=== PATIENT | male | born 1985 | race African-American/Black ===

== ENCOUNTER 2016-09-10 18:29 | Emergency (ER) | payer OTHER ==
[~2016-09-10] VITALS: Ht 177.8 cm; Wt 133.0 kg
[~2016-09-10 18:29] MED LIST: DIAZ-165 PO; IBUP600T44 PO; INSDGI SQ; NVLG SQ; OXYC-57 PO
[2016-09-10 18:38] VITALS: BP 188/112; TEMP 37.1; Ht 177.8 cm; Wt 133.0 kg
--- NOTE | 2016-09-10 19:19 | DIAGNOSTIC IMAGING REPORT ---
RIGHT KNEE 3 VIEWS CLINICAL HISTORY: right knee injury Right trauma. Pain. COMPARISON: None. DISCUSSION: Mild degenerative change all major joint compartments. No evidence for fracture or dislocation. No joint effusion. There is no evidence for soft tissue swelling. IMPRESSION: Mild degenerative change. No acute bony abnormality. Electronically signed by: Alistair Solis M.D. 09/10/2016 7:17 PM Dictated Date/Time: 09/10/2016 7:17 PM
--- NOTE | 2016-09-10 19:41 | EMERGENCY ROOM VISIT NOTE ---
ED Visit Note First contact with patient: 18:43 CHIEF COMPLAINT: knee pain HISTORY OF PRESENT ILLNESS: This 31-year-old male patient presents to the emergency department ambulatory complaining of pain in the right knee. The patient reports that he has had knee problems for several months. He states that his knee jaleel occasionally. He works as a general ledger bookkeeper and states that he has pain in the knee after standing for long period. He reports that yesterday, the knee locked and his leg twisted. He reports that his roommate heard a pop in the knee when it occurred. The pain is worse with movement of the knee. He rates the discomfort an 8/10. No numbness or tingling. No previous injuries to this knee. No ankle, foot or hip pain. The patient states that he was supposed to see orthopedics, but they have canceled the appointment twice. REVIEW OF SYSTEMS: A 6 system review of systems was completed with positives and pertinent negatives listed in the HPI. ALLERGIES: No known drug allergies MEDICATIONS: NovoLog, Lantus PMH: Diabetes SOCIAL HISTORY: The patient lives locally with a roommate. He is a smoker. He admits to occasional alcohol use. PHYSICAL EXAM: Vital Signs: Reviewed Nurse's notes, vital signs stable. GENERAL : This is a 31-year-old male, no acute distress, but appears in pain, well- developed, well-nourished. MENTAL STATUS: Alert, oriented to person place and time, and cooperative. MUSCULOSKELETAL: The right knee is not swollen. There is no ecchymosis. There is no joint effusion present. The patient is tender of a lateral aspect of the knee. The patella does not subluxate. Range of motion is , but painful. Strength of the quads and hamstrings is 5/5. Benjamin's is negative. Janny's and Anterior Drawer tests are negative. There is no laxity with varus and valgus stressing. The foot and toes are warm and well-perfused. Dorsalis pedis pulse 2+. Sensation to pain and light touch is intact. Capillary refill less than 2 seconds. RADIOGRAPHIC FINDINGS: RIGHT KNEE 3 VIEWS CLINICAL HISTORY: right knee injury Right trauma. Pain. COMPARISON: None. DISCUSSION: Mild degenerative change all major joint compartments. No evidence for fracture or dislocation. No joint effusion. There is no evidence for soft tissue swelling. IMPRESSION: Mild degenerative change. No acute bony abnormality. EMERGENCY DEPARTMENT COURSE: I examined the patient. X-rays of the right knee were reviewed by myself and read by radiology and reveal no acute findings. The patient has had an MRI previously. He will need to follow-up with orthopedics for further evaluation of his chronic knee pain. Conservative measures were discussed. He was placed in an Steven wrap. The patient was discharged home in good condition. DIAGNOSIS: Right knee pain Problem List Medical Problems: (1) DM type 2 (diabetes mellitus, type 2) Status: Chronic (2) Right knee injury Status: Resolved Surgical Problems: (1) No significant past surgical history Status: Chronic Current/Historical Medications Scheduled Insulin Aspart (Novolog), 20 UNITS SQ AC Insulin Glargine (Lantus), 70 UNITS SQ DAILY Scheduled PRN Ibuprofen (Motrin), 600 MG PO TID PRN for Pain Allergies Coded Allergies: No Known Allergies (Unverified , 09/10/16) Vital Signs Date Time Temp Pulse Resp B/P Pulse Ox O2 Delivery O2 Flow Rate FiO2 09/10/16 18:38 37.1 102 20 188/112 94 Room Air Departure Information Impression Primary Impression: Knee pain Dispostion Home / Self-Care Condition GOOD Referrals Olegario Prieto MD (PCP) Slim Finley M.D. Patient Instructions My [facility] Additional Instructions You have been treated in the Emergency Department for Knee Pain. For pain control, you can use the following [id number] medicines (if >12 yo): - Regular strength (325mg/tab) Tylenol (acetaminophen) 2 tabs every 4-6 hours as needed. Do not exceed 12 tablets in a 24 hour period. Avoid taking more than 4 grams (4000 mg) of Tylenol per day. This includes any other sources of acetaminophen you may take on a regular basis. - Regular strength (200 mg/tab) Advil (ibuprofen) 1-2 tabs every 4-6 hours as needed. Do not exceed a dose of 3200 mg per day. If this is a recent injury (<24 hrs), ice can be applied to the area of pain for the first 3 days to help decrease pain and inflammation. Ice massages can be performed by freezing water in a paper cup, peeling back the cup to expose the ice and then massaging over the affected area. You have been provided the number for an Orthopaedic Surgeon. You should call this number as soon as possible to establish a follow-up visit from today's Emergency Department visit. [facility] has a walk-in clinic Wednesday through Wednesday from 5 PM to 8 PM. Return to the Emergency Department if your current symptoms worsen despite treatment course outlined above. Problem Qualifiers Primary Impression: Knee pain Laterality: right Chronicity: unspecified Qualified Codes: M25.561 - Pain in right knee
[2016-09-10 19:54] VITALS: PULSE 78; O2SAT 98
[2016-11-12] MEDS ORDERED: ATOR10TA88 PO (16:31)
== END 2016-09-10 19:53 | disposition home or self-care (01) ==
LOC: C.EDB 18:31 → C.EDD 19:53
DX: M25.561 Pain in right knee (principal); E11.9 Type 2 diabetes mellitus without complications; Z79.4 Long term (current) use of insulin; F17.210 Nicotine dependence, cigarettes, uncomplicated

== ENCOUNTER 2016-09-23 13:34 | Observation (INO) | payer OTHER ==
[2016-09-18 15:34] VITALS: BMI 50.0
[2016-09-21 15:55] LABS: BUN/CREATININE RATIO 14.5 (10-20); CALCIUM 9.3 mg/dl (8.5-10.1); CREATININE 0.73 mg/dl (0.60-1.40)
--- NOTE | 2016-09-22 10:35 | HISTORY & PHYSICAL EXAMINATION ---
DATE OF ADMISSION: 09/23/2016 HISTORY OF PRESENT ILLNESS: The patient is a 31-year-old white male who presents with complaints of right knee pain with a lateral meniscal tear and chondromalacia patella. He presents for knee arthroscopy, partial lateral meniscectomy versus meniscal repair pending findings at time of surgery. He has failed attempts at conservative management including physical therapy, anti-inflammatories, relative rest, activity modifications and bracing. He presents for knee arthroscopy, partial lateral meniscectomy versus meniscal repair. He is a 70 inch, 350 pound white male, age 31. PAST MEDICAL HISTORY: Significant for sleep apnea, hypertension, diabetes, currently treated with insulin, osteoarthritis, reflux disease and obesity. SOCIAL HISTORY: Otherwise unremarkable. Denies history of alcohol, smoking or recreational drug use. FAMILY HISTORY: Otherwise unremarkable and noncontributory. PAST SURGICAL HISTORY: Unremarkable. ALLERGIES: None. MEDICATIONS: Include insulin, NovoLog 20 units 3-4 times a day, Lantus 70 units daily. Past medical history is otherwise unremarkable. See history of present illness for pertinent positives. PHYSICAL EXAMINATION: GENERAL: Reveals a very pleasant 31 year-old white male, 350 pounds. Alert and oriented x3. HEENT: Otherwise atraumatic, normocephalic. HEART: Regular rate at 72 beats per minute. No murmurs are noted. LUNGS: Clear. No rales, rhonchi, or wheezes noted. ABDOMEN: Soft, nontender, nondistended. Bowel sounds are present in all 4 quadrants. RECTAL: No rectal examination was performed. MUSCULOSKELETAL: Consistent with that of medial joint line pain and tenderness right knee with lateral joint line pain and tenderness right knee. Exam consistent with that of a torn lateral meniscus. PLAN: For arthroscopy, arthroscopic lateral meniscectomy, possible repair pending findings at time of surgery, postoperative pain management, DVT prophylaxis, antibiotics. BILLIE
[~2016-09-23] VITALS: Ht 177.8 cm; Wt 162.1 kg
[2016-09-23] VITALS (9 sets, daily range): BP systolic 140–181; BP diastolic 68–78; PULSE 84–102; TEMP 36.9–37.2; O2SAT 94–98; Ht 177.8 cm; Wt 162.1 kg
--- NOTE | 2016-09-23 11:58 | History & Physical Bridge Note ---
H&P Re-Evaluation Bridge Note: I have examined the patient, reviewed the History & Physical and in the interval since the performance of the History & Physical I have noted the following changes of clinical significance: No changes noted
[~2016-09-23 13:34] MED LIST changes: -DIAZ-165 PO; -IBUP600T44 PO; +LACTATED RINGER'S 1000ML 1,000 ML IV SCH; -OXYC-57 PO
[2016-09-23 14:01] LABS: HEMATOCRIT 42.7 % (42-52); MEAN CELL VOLUME 85.6 fL (80-100); MEAN CORPUSCULAR HEMOGLOBIN 29.1 pg (25-34); MEAN PLATELET VOLUME 10.7 fL (7.4-10.4); PLATELET COUNT 282 K/uL (130-400); RED BLOOD COUNT 4.99 M/uL (4.7-6.1); WHITE BLOOD COUNT 7.77 K/uL (4.8-10.8)
[2016-09-23] MEDS ORDERED: ONDANSETRON INJ 2 MG/ML 2 ML VIAL ONE (14:37)
[2016-09-23] MEDS ORDERED: DEXAMETHASONE SOD INJ 4 MG/ML VIAL ONE (14:37)
[2016-09-23] MEDS ORDERED: PROPOFOL IV EMULSION 10 MG/ML 20 ML VIAL IV ONE ×2 (14:37→15:43)
[2016-09-23] MEDS ORDERED: ROCURONIUM BROMIDE 10 MG/ML 5 ML VIAL ONE (14:37)
[2016-09-23] MEDS ORDERED: LIDOCAINE HCL 2% 2 ML VIAL (20MG/ML) ONE (14:37)
[2016-09-23] MEDS ORDERED: FENTANYL CITRATE INJ 50 MCG/1 ML 2 ML VIAL ONE ×3 (14:38→16:55)
[2016-09-23] MEDS ORDERED: MIDAZOLAM HCL 1 MG/ML 2ML VIAL ONE (14:38)
[2016-09-23] MEDS ORDERED: CEFAZOLIN 3000 MG/65 ML D5W IV SCH (15:00)
[2016-09-23] MEDS ORDERED: HYDR-5688 PO (15:17)
--- NOTE | 2016-09-23 15:18 | Discharge Instructions ---
Discharge Instructions Visit Reason for Visit: Right Knee Lateral Meniscus Tear, Chondromalacia P Discharge Discharge Diagnosis / Problem: right knee arthroscopy, meniscus tear Discharge Goals Goal(s): Decrease discomfort, Improve function, Increase independence Activity Recommendations Activity Limitations: as noted below Weightbearing Status: Right weightbearing (as tolerated) Anesthesia . Post Anesthesia Instructions: If you have had General Anesthesia or IV Sedation: * Do not drive today. * Resume driving when surgeon permits. * Do not make important decisions or sign legal documents today. * Call surgeon for: 1. Temperature elevations greater than 101 degrees F. 2. Uncontrollable pain. 3. Excessive bleeding. 4. Persistent nausea and vomiting. 5. Medication intolerance (nausea, vomiting or rash). * For nausea and vomiting use only clear liquids such as: tea, soda, bouillon until nausea subsides, then gradually increase diet as tolerated. * If you have any concerns or questions, call your surgeon's office. If physician is unavailable and it is an emergency, call 911 or go to the nearest emergency room. . Instructions / Follow-Up Instructions / Follow-Up ACTIVITY RECOMMENDATIONS: * You may walk on the leg with or without crutches as comfort permits. * Bending of the knee should start at once. * Do not shower for 48 hours following surgery. SPECIAL CARE INSTRUCTIONS: * You may cleanse the skin adjacent to the small wounds with soap and water at the time of the first dressing change. * The application of an ice bag to the front and sides of the knee will decrease swelling and discomfort for the first 48 hours. * The small incisions may be sore and develop bruising. This bruising does not require any special care. SPECIAL PRECAUTIONS: * If you experience unusual pain unrelieved by prescriptions, temperature elevation (100 degrees F. or above) or progressive swelling or bleeding, you should contact our office at for further evaluation. * You may have been prescribed pain medication. If you experience nausea and/or fine skin rash, discontinue this medication and contact our office at for an alternate medication. DRESSING: * Dressing should be comfortable and absorb any leakage of fluid and/or blood. * The dressing may become moist or bloodstained. * Dressing may be removed _48 hours_ after surgery and bandaids placed over the small surgical incisions. If can be removed sooner if it becomes very soiled or loose. * Bandaids may be used over next several days as needed and can be discontinued when there is not further drainage from the wounds. FOLLOW UP VISIT: If appointment is not already scheduled: Please call [facility] to make a follow-up appointment for your surgery at . Pending Studies Studies pending at discharge: no Medical Emergencies . Who to Call and When: Medical Emergencies: If at any time you feel your situation is an emergency, please call 911 immediately. . Non-Emergent Contact Non-Emergency issues call your: Primary Care Provider, Surgeon . . "Provider Documentation" section prepared by Alistair Joel. [place] Drug Monitoring Program Search Results: patient reviewed within database, no issues identified
[2016-09-23] MEDS ORDERED: BUPIVACAINE/EPINEPHRINE 0.5% MPF 1:200,000 30 ML VIAL ONE (15:27)
--- NOTE | 2016-09-23 16:17 | [facility] Post Operative Brief Note ---
Immediate Operative Summary Operative Date Sep 23, 2016. Pre-Operative Diagnosis Right lateral meniscal tear and chondromalacia patella Post-Operative Diagnosis Same Procedure(s) Performed Right Knee Arthroscopic Partial Lateral Menisectomy Surgeon Dr Salas Estimated Blood Loss 3ml Findings tlm rt knee Specimens A. Right lateral meniscus Complication(s) None Disposition Recovery Room / PACU
--- NOTE | 2016-09-23 16:34 | OPERATIVE REPORT ---
DATE OF OPERATION: 09/23/2016 PREOPERATIVE DIAGNOSIS: Torn lateral meniscus, right knee. POSTOPERATIVE DIAGNOSIS: Torn lateral meniscus, right knee. PROCEDURE: Arthroscopy, partial lateral meniscectomy. SURGEON: Dr. Salas. ANESTHESIA: General. COMPLICATIONS: None. GROSS FINDINGS: The patient is a very pleasant 31-year-old black male who presents with complaints of ongoing pain about his right knee. He has a lateral meniscal tear via MRI scan and clinical examination and presents today for arthroscopic evaluation. At the time of surgery, the above findings were noted. There was no evidence of a complex tear of the posterior horn of the lateral meniscus. Subsequently, a partial posterior horn lateral meniscectomy was performed. PROCEDURE: After proper prepping and draping of the right lower extremity, arthroscopic examination involving medial and lateral parapatellar portals revealed there to be evidence of a torn lateral meniscus. The patient subsequently underwent arthroscopy and arthroscopic partial lateral meniscectomy. All particulate matter and debris was removed. The medial meniscus was visualized and probed and noted be intact. Lateral meniscus visualized and probed and noted to be intact, patellofemoral joint was otherwise pristine. Subsequently, having performed a thorough partial posterior and lateral meniscectomy all particulate matter and debris was removed. Skin portals were closed with 4-0 nylon. Sterile compression dressing was placed. The patient was taken to recovery room in stable condition. I attest to the content of the Intraoperative Record and any orders documented therein. Any exceptio ns are noted below.
[2016-09-23] MEDS ORDERED: ALBUTEROL HFA INHALER 8.5 GM INH ONE (16:57)
[2016-09-23] MEDS ORDERED: PROMETHAZINE HCL INJ 12.5 MG in SODIUM CHLORIDE 0.9% 50ML 50 ML IV PRN (17:00)
[2016-09-23] MEDS ORDERED: EpHEDrine SULFATE INJ 50 MG/ML AMP IV PRN (17:00)
[2016-09-23] MEDS: FENTANYL CITRATE INJ 50 MCG/1 ML 2 ML VIAL IV PRN ×4 (17:00→17:15)
[2016-09-23] MEDS ORDERED: ONDANSETRON INJ 2 MG/ML 2 ML VIAL IV PRN ×2 (17:00→19:30)
[2016-09-23] MEDS ORDERED: ATROPINE SULFATE 0.1 MG/ML 5ML SYR IV PRN (17:00)
--- NOTE | 2016-09-23 18:15 | Anesthesiology Progress Note ---
Anesthesia Post Op Note Date & Time Sep 23, 2016 at 18:13 Vital Signs Pain Intensity: 6 Vital Signs Past 12 Hours Date Time Temp Pulse Resp B/P Pulse Ox O2 Delivery O2 Flow Rate FiO2 09/23/16 17:36 92 22 94 09/23/16 17:36 92 22 09/23/16 17:35 116/69 09/23/16 17:31 84 18 95 09/23/16 17:31 86 18 09/23/16 17:30 137/82 09/23/16 17:26 88 20 09/23/16 17:26 88 20 93 09/23/16 17:25 138/81 09/23/16 17:21 86 13 96 09/23/16 17:21 87 13 09/23/16 17:20 140/78 09/23/16 17:16 88 21 93 09/23/16 17:16 87 21 09/23/16 17:15 136/78 09/23/16 17:11 86 18 09/23/16 17:11 86 18 94 09/23/16 17:10 136/74 09/23/16 17:06 89 24 09/23/16 17:06 89 24 92 09/23/16 17:05 122/74 09/23/16 17:01 88 19 09/23/16 17:01 88 19 92 09/23/16 17:00 145/84 09/23/16 16:56 88 18 09/23/16 16:56 89 18 96 09/23/16 16:55 145/78 09/23/16 16:54 93 95 45 09/23/16 16:51 89 18 96 09/23/16 16:51 89 18 09/23/16 16:50 143/87 09/23/16 16:46 94 24 98 09/23/16 16:46 93 24 09/23/16 16:45 170/88 09/23/16 16:44 163/88 09/23/16 16:41 36 96 16 163/88 98 CPAP 09/23/16 14:08 36.9 102 20 140/68 97 Room Air 09/23/16 13:54 36.9 102 20 140/68 97 Room Air Notes Mental Status: alert / awake / arousable, participated in evaluation Pt Amnestic to Procedure: Yes Nausea / Vomiting: adequately controlled Pain: adequately controlled Airway Patency, RR, SpO2: stable & adequate, see Notes BP & HR: stable & adequate Hydration State: stable & adequate Anesthetic Complications: no major complications apparent Patient very high risk for ROOPA although had yet to complete a formal sleep study. Noted in PACU desaturations into 80's despite being on low level BiPAP. [place] it was in his best interest to admit the patient overnight for close monitoring and will order CPAP for time tonight. Attending surgeon aware and agrees however preferred to have medicine admit and follow the patient. Otherwise he is doing well and without complaint.
[2016-09-23] MEDS ORDERED: GLUCAGON FOR INJ 1 MG VIAL SQ PRN (19:30)
[2016-09-23] MEDS ORDERED: GLUCOSE 40% GEL 15 GM TUBE PO PRN (19:30)
[2016-09-23] MEDS ORDERED: GLUCOSE 10 TABS/TUBE PO PRN (19:30)
[2016-09-23] MEDS ORDERED: POLYETHYLENE (MIRALAX) 17 GM PACK PO PRN (19:30)
[2016-09-23] MEDS ORDERED: DEXTROSE 50% 50 ML SYR IV PRN (19:30)
[2016-09-23] MEDS ORDERED: ALUMINUM/MAGNESIUM/SIMETH (MAALOX MAX) 30 ML UDC PO PRN (19:30)
[2016-09-23] MEDS ORDERED: ACETAMINOPHEN 325 MG TAB PO PRN ×2 (19:30→22:45)
[2016-09-23] MEDS ORDERED: MAGNESIUM HYDROXIDE SUSP 30 ML UDC PO PRN (19:30)
--- NOTE | 2016-09-23 19:42 | History and Physical ---
History & Physical Date & Time of Service: Sep 23, 2016 at 19:34 Chief Complaint: Right Knee Lateral Meniscus Tear, Chondromalacia P Primary Care Physician: Olegario Prieto MD History of Present Illness Source: patient, clinic records This is a 31 year old male with PMH of insulin dependent DM2, morbid obesity - presented for a right knee meniscal repair; was about to be sent home from the OR, but they noted that he was hypoxic - he states that he is to have a sleep study for sleep apnea - and was started on CPAP and his oxygen level has increased and improved. He denies any symptoms currently. No other problems/ issues to note. Past Medical/Surgical History Medical Problems: (1) DM type 2 (diabetes mellitus, type 2) Status: Chronic (2) Right knee injury Status: Resolved Surgical Problems: (1) No significant past surgical history Status: Chronic Family History Diabetes mellitus MOTHER Social History Smoking Status: Never Smoker Drug Use: none Marital Status: single Occupational Status: employed Multi-Drug Resistant Organisms History of MDRO: No Allergies Coded Allergies: No Known Allergies (Unverified , 09/23/16) Home Medications Scheduled Insulin Aspart (Novolog), 20 UNITS SQ AC Insulin Glargine (Lantus), 70 UNITS SQ 8PM Scheduled PRN Hydrocodone/Acetaminophen 5MG/325MG ([place] 5MG/325MG), 1-2 TABLETS PO q4-6 hours PRN for Pain Review of Systems Constitutional: No chills, No fever Respiratory: No cough, No dyspnea at rest, No dyspnea on exertion, No hemoptysis, No shortness of breath, No sputum, No wheezing Cardiovascular: No chest pain Abdomen: No diarrhea, No nausea, No vomiting Musculoskeletal: + joint pain (mild right knee pain) Hematologic / Lymphatic: No abnormal bleeding/bruising Integumentary: No rash Allergic / Immunologic: No environmental allergies, No seasonal allergies Physical Exam Vital Signs Date Time Temp Pulse Resp B/P Pulse Ox O2 Delivery O2 Flow Rate FiO2 09/23/16 18:35 36.3 88 20 128/76 100 CPAP 50 09/23/16 18:35 128/76 09/23/16 18:32 86 23 09/23/16 18:32 86 23 99 09/23/16 18:30 139/88 09/23/16 18:27 87 20 98 09/23/16 18:27 88 20 09/23/16 18:25 118/66 09/23/16 18:22 83 21 96 09/23/16 18:22 84 21 09/23/16 18:20 151/85 09/23/16 18:17 92 21 09/23/16 18:17 91 21 99 09/23/16 18:15 143/85 09/23/16 18:12 89 20 09/23/16 18:12 90 20 98 09/23/16 18:10 118/64 09/23/16 18:07 83 22 97 09/23/16 18:07 84 22 09/23/16 18:05 100/66 09/23/16 18:02 88 17 99 09/23/16 18:02 88 17 09/23/16 18:00 141/82 09/23/16 17:58 132/77 09/23/16 17:57 83 18 99 09/23/16 17:57 83 18 09/23/16 17:52 88 20 09/23/16 17:52 88 20 98 09/23/16 17:51 130/77 09/23/16 17:47 91 21 94 09/23/16 17:47 92 21 09/23/16 17:45 93/64 09/23/16 17:42 86 19 97 09/23/16 17:42 87 19 09/23/16 17:40 151/87 09/23/16 17:37 91 19 09/23/16 17:37 89 19 96 09/23/16 17:36 92 22 94 09/23/16 17:36 92 22 09/23/16 17:35 116/69 09/23/16 17:31 84 18 95 09/23/16 17:31 86 18 09/23/16 17:30 137/82 09/23/16 17:26 88 20 09/23/16 17:26 88 20 93 09/23/16 17:25 138/81 09/23/16 17:21 86 13 96 09/23/16 17:21 87 13 09/23/16 17:20 140/78 09/23/16 17:16 88 21 93 09/23/16 17:16 87 21 09/23/16 17:15 136/78 09/23/16 17:11 86 18 09/23/16 17:11 86 18 94 09/23/16 17:10 136/74 09/23/16 17:06 89 24 09/23/16 17:06 89 24 92 09/23/16 17:05 122/74 09/23/16 17:01 88 19 09/23/16 17:01 88 19 92 09/23/16 17:00 145/84 09/23/16 16:56 88 18 09/23/16 16:56 89 18 96 09/23/16 16:55 145/78 09/23/16 16:54 93 95 45 09/23/16 16:51 89 18 96 09/23/16 16:51 89 18 09/23/16 16:50 143/87 09/23/16 16:46 94 24 98 09/23/16 16:46 93 24 09/23/16 16:45 170/88 09/23/16 16:44 163/88 09/23/16 16:41 36 96 16 163/88 98 CPAP 09/23/16 14:08 36.9 102 20 140/68 97 Room Air 09/23/16 13:54 36.9 102 20 140/68 97 Room Air General Appearance: no apparent distress, + obese ENT: hearing grossly normal Respiratory/Chest: chest non-tender, lungs clear, normal breath sounds, no respiratory distress, no accessory muscle use Cardiovascular: regular rate, rhythm, no edema, no gallop, no JVD, no murmur, normal peripheral pulses Abdomen/GI: normal bowel sounds, non tender, soft Extremities/Musculoskelatal: no calf tenderness, normal capillary refill, no pedal edema, + pertinent finding (right knee surgical dressing) Neurologic/Psych: no motor/sensory deficits, alert, normal mood/affect Skin: normal color Lymphatic: no adenopathy Diagnostics Laboratory Results Results Past 24 Hours Test 09/23/16 13:56 09/23/16 13:59 09/23/16 16:48 Range/Units White Blood Count 7.77 4.8-10.8 K/uL Red Blood Count 4.99 4.7-6.1 M/uL Hemoglobin 14.5 14.0-18.0 g/dL Hematocrit 42.7 42-52 % Mean Corpuscular Volume 85.6 80-100 fL Mean Corpuscular Hemoglobin 29.1 25-34 pg Mean Corpuscular Hemoglobin Concent 34.0 32-36 g/dl RDW Standard Deviation 41.4 36.4-46.3 fL RDW Coefficient of Variation 13.2 11.5-14.5 % Platelet Count 282 130-400 K/uL Mean Platelet Volume 10.7 7.4-10.4 fL Bedside Glucose 96 93 70-99 mg/dl Impression Assessment and Plan This is a 31 year old male with PMH of insulin dependent DM2, morbid obesity - presented for a right knee meniscal repair staying due to hypoxia Hypoxia multifactorial: sleep apnea, morbid obesity, anesthesia, pain medications oxygen level improving with oxygen CPAP ordered for nocturnal use outpatient sleep study is pending ordered CXR incentive spirometer to prevent atelectasis monitor in tele overnight, observation status Right Meniscus Repair POD #0 pain controlled No other restrictions noted by orthopedic surgery - discharge instructions as per ortho Insulin Dependent DM2 home regimen of 20 units of Novolog TID and 70 units of Lantus HS decreased dose while in patient; patient did not eat anything today (09/23) diabetic diet, check HA1c in AM DVT ppx subq heparin FULL CODE likely d/c in AM VTE Prophylaxis VTE Risk Assessment Done? Y/N: Yes Risk Level: Moderate
[2016-09-23] MEDS ORDERED: IV FLUIDS COMPLETED PRN (20:15)
--- NOTE | 2016-09-23 20:55 | DIAGNOSTIC IMAGING REPORT ---
CHEST ONE VIEW PORTABLE CLINICAL HISTORY: Hypoxia. COMPARISON STUDY: Chest radiograph November 26, 2015. FINDINGS: Lung volumes are normal. There is no pneumothorax or pleural effusion. Cardiac size is normal. There is no evidence of pulmonary edema. Bilateral opacities are predominantly linear in configuration. IMPRESSION: Linear bilateral opacities. The configuration favors atelectasis. Electronically signed by: Reji Gray M.D. 09/23/2016 8:53 PM Dictated Date/Time: 09/23/2016 8:52 PM
[2016-09-23] MEDS ORDERED: INSULIN ASPART 100 UNITS/ML 3 ML PEN SC SCH (21:00)
[2016-09-23] MEDS ORDERED: HEPARIN SOD 5000 UNIT/0.5 ML CARP SQ SCH (21:00)
[2016-09-23] MEDS ORDERED: INSULIN GLARGINE SOLOSTAR 100 UNITS/ML 3 ML PEN SC SCH ×2 (21:00)
[2016-09-23] MEDS: MoRPHine SULFATE 4 MG/ML 1 ML CARP\\VIAL IV PRN ×2 (22:41→23:41)
[2016-09-23] MEDS ORDERED: TRAMADOL HCL 50 MG TAB PO PRN (22:45)
[2016-09-23] MEDS ORDERED: OXYCODONE/ACETAMINOPHEN 5-325 TAB PO PRN (22:45)
[2016-09-24] VITALS: O2SAT 98
[2016-09-24] MEDS: MoRPHine SULFATE 4 MG/ML 1 ML CARP\\VIAL IV PRN ×2 (03:45→07:31)
[2016-09-24 04:00] VITALS: O2SAT 98
[2016-09-24 04:23] VITALS: BP 138/79; PULSE 87; TEMP 36.6; O2SAT 96
[2016-09-24 06:57] LABS: HEMATOCRIT 41.7 % (42-52); MEAN CELL VOLUME 86.7 fL (80-100); MEAN CORPUSCULAR HEMOGLOBIN 26.6 pg (25-34); MEAN CORPUSCULAR HGB CONC 30.7 g/dl (32-36); MEAN PLATELET VOLUME 12.1 fL (7.4-10.4); PLATELET COUNT 142 K/uL (130-400); RED BLOOD COUNT 4.81 M/uL (4.7-6.1); WHITE BLOOD COUNT 12.09 K/uL (4.8-10.8)
[2016-09-24 07:00] VITALS: BP 151/77; PULSE 89; TEMP 36.9; O2SAT 93
[2016-09-24] MEDS ORDERED: INSULIN ASPART 100 UNITS/ML 3 ML PEN SC SCH ×2 (07:00→07:30)
[2016-09-24 07:28] LABS: BLOOD UREA NITROGEN 9 mg/dl (7-18); BUN/CREATININE RATIO 10.4 (10-20); CALCIUM 9.2 mg/dl (8.5-10.1); CARBON DIOXIDE 30 mmol/L (21-32); CHLORIDE 102 mmol/L (98-107); GLUCOSE 128 mg/dl (70-99); SODIUM 140 mmol/L (136-145)
[2016-09-24 08:00] VITALS: O2SAT 93
[2016-09-24 08:06] LABS: MAGNESIUM 2.2 mg/dl (1.8-2.4); POTASSIUM 4.1 mmol/L (3.5-5.1)
[2016-09-24 08:13] LABS: ESTIMATED AVERAGE GLUCOSE 192 mg/dl; HA1C FLAG Normal (Normal)
--- NOTE | 2016-09-24 08:26 | Progress Note ---
Subjective Date of Service: Sep 24, 2016. Subjective Pt evaluation today including: conversation w/ patient, physical exam, lab review, review of studies, review of inpatient medication list Saw/examined the patient in room 217 He is currently laying in bed, comfortable, in no distress No oxygen is on, and he is saturating well Pain controlled with medications given last night Problem List Medical Problems: (1) Back pain Status: Acute (2) Back strain Status: Acute (3) Back strain Status: Acute (4) Knee pain Status: Acute (5) Morbid obesity with body mass index (BMI) of 45.0 to 49.9 in adult Status: Acute (6) Muscle strain Status: Acute (7) Spasm of back muscles Status: Acute Review of Systems Constitutional: No chills, No fever Respiratory: No cough, No dyspnea at rest, No dyspnea on exertion, No hemoptysis, No shortness of breath, No sputum, No wheezing Cardiac: No chest pain, No edema, No palpitations Abdomen: No diarrhea, No nausea, No pain, No vomiting Heme: No abnormal bleeding/bruising Medications Current Inpatient Medications Medications (Trade) Dose Ordered Sig/Antolin Route Start Time Stop Time Status Last Admin Dose Admin Ondansetron HCl (Zofran Inj) 4 mg ONE PRN IV 09/23/16 17:00 Heparin Sodium (Porcine) (Heparin Sq 5000 Unit/0.5ml) 5,000 unit Q12@0900,2100 SQ 09/23/16 21:00 10/23/16 20:59 09/23/16 20:41 5,000 UNIT Acetaminophen (Tylenol Tab) 650 mg Q4H PRN PO 09/23/16 19:30 10/23/16 19:29 Al Hydrox/Mg Hydrox/Simethicone (Maalox Max Susp) 15 ml Q4H PRN PO 09/23/16 19:30 10/23/16 19:29 Magnesium Hydroxide (Milk Of Magnesia Susp) 30 ml Q12H PRN PO 09/23/16 19:30 10/23/16 19:29 Ondansetron HCl (Zofran Inj) 4 mg Q6H PRN IV 09/23/16 19:30 10/23/16 19:29 Polyethylene (Miralax Powder Packet) 17 gm DAILY PRN PO 09/23/16 19:30 10/23/16 19:29 Glucose (Glucose 40% Gel) 15-30 GRAMS 15 GRAMS... UD PRN PO 09/23/16 19:30 10/23/16 19:29 Glucose (Glucose Chew Tab) 4-8 Tablets 4 Tabl... UD PRN PO 09/23/16 19:30 10/23/16 19:29 Dextrose (Dextrose 50% 50ML Syringe) 25-50ML OF 50% DW IV FOR... UD PRN IV 09/23/16 19:30 10/23/16 19:29 Glucagon (Glucagon Inj) 1 mg UD PRN SQ 09/23/16 19:30 10/23/16 19:29 Insulin Glargine (Lantus Solostar Pen) 50 unit HS SC 09/23/16 21:00 10/23/16 20:59 09/23/16 20:42 50 UNIT Miscellaneous (Iv Fluids Completed) 1 ea PRN PRN N/A 09/23/16 20:15 09/23/17 20:14 Tramadol HCl (Ultram Tab) not relieved by tylenol @ Q6H PRN PO 09/23/16 22:45 10/23/16 22:44 Oxycodone/ Acetaminophen (Percocet 5-325mg Tab) pain not relieved by tylenol Q6H PRN PO 09/23/16 22:45 10/07/16 22:44 09/24/16 07:33 2 TAB Morphine Sulfate (MoRPHine SULFATE INJ) 4 mg Q3H PRN IV 09/23/16 22:45 10/07/16 22:44 09/24/16 03:45 4 MG Insulin Aspart (novoLOG ASPART) SLIDING SCALE G... ACHS SC 09/24/16 07:30 10/24/16 07:29 Objective Vital Signs Date Time Temp Pulse Resp B/P Pulse Ox O2 Delivery O2 Flow Rate FiO2 09/24/16 07:00 36.9 89 18 151/77 93 Room Air 09/24/16 04:23 36.6 87 20 138/79 96 BiPAP 09/24/16 04:00 98 BiPAP 09/24/16 00:00 98 BiPAP 09/23/16 23:34 36.9 91 18 153/73 98 BiPAP 09/23/16 22:49 91 98 40 09/23/16 21:00 90 175/76 09/23/16 20:15 37.2 92 18 181/75 94 Room Air 09/23/16 19:33 84 150/77 96 Nasal Cannula 3.0 09/23/16 18:50 96 Nasal Cannula 2.0 09/23/16 18:50 37.0 86 16 158/78 94 Nasal Cannula 2.0 09/23/16 18:35 36.3 88 20 128/76 100 CPAP 50 09/23/16 18:35 128/76 09/23/16 18:32 86 23 09/23/16 18:32 86 23 99 09/23/16 18:30 139/88 09/23/16 18:27 87 20 98 09/23/16 18:27 88 20 09/23/16 18:25 118/66 09/23/16 18:22 83 21 96 09/23/16 18:22 84 21 09/23/16 18:20 151/85 09/23/16 18:17 92 21 09/23/16 18:17 91 21 99 09/23/16 18:15 143/85 09/23/16 18:12 89 20 09/23/16 18:12 90 20 98 09/23/16 18:10 118/64 09/23/16 18:07 83 22 97 09/23/16 18:07 84 22 09/23/16 18:05 100/66 09/23/16 18:02 88 17 99 09/23/16 18:02 88 17 09/23/16 18:00 141/82 09/23/16 17:58 132/77 09/23/16 17:57 83 18 99 09/23/16 17:57 83 18 09/23/16 17:52 88 20 09/23/16 17:52 88 20 98 09/23/16 17:51 130/77 09/23/16 17:47 91 21 94 09/23/16 17:47 92 21 09/23/16 17:45 93/64 09/23/16 17:42 86 19 97 09/23/16 17:42 87 19 09/23/16 17:40 151/87 09/23/16 17:37 91 19 09/23/16 17:37 89 19 96 09/23/16 17:36 92 22 94 09/23/16 17:36 92 22 09/23/16 17:35 116/69 09/23/16 17:31 84 18 95 09/23/16 17:31 86 18 09/23/16 17:30 137/82 09/23/16 17:26 88 20 09/23/16 17:26 88 20 93 09/23/16 17:25 138/81 09/23/16 17:21 86 13 96 09/23/16 17:21 87 13 09/23/16 17:20 140/78 09/23/16 17:16 88 21 93 09/23/16 17:16 87 21 09/23/16 17:15 136/78 09/23/16 17:11 86 18 09/23/16 17:11 86 18 94 09/23/16 17:10 136/74 09/23/16 17:06 89 24 09/23/16 17:06 89 24 92 09/23/16 17:05 122/74 09/23/16 17:01 88 19 09/23/16 17:01 88 19 92 09/23/16 17:00 145/84 09/23/16 16:56 88 18 09/23/16 16:56 89 18 96 09/23/16 16:55 145/78 09/23/16 16:54 93 95 45 09/23/16 16:51 89 18 96 09/23/16 16:51 89 18 09/23/16 16:50 143/87 09/23/16 16:46 94 24 98 09/23/16 16:46 93 24 09/23/16 16:45 170/88 09/23/16 16:44 163/88 09/23/16 16:41 36 96 16 163/88 98 CPAP 09/23/16 14:08 36.9 102 20 140/68 97 Room Air 09/23/16 13:54 36.9 102 20 140/68 97 Room Air Physical Exam General Appearance: no apparent distress, + obese Respiratory/Chest: chest non-tender, lungs clear, normal breath sounds, no respiratory distress, no accessory muscle use Cardiovascular: regular rate, rhythm, no edema, no murmur Abdomen: normal bowel sounds, non tender, soft Extremities: normal inspection, no pedal edema Neurologic/Psychiatric: no motor/sensory deficits, alert, normal mood/affect Skin: normal color Laboratory Results Last 24 Hours Test 3/1/17 13:56 09/23/16 13:59 09/23/16 16:48 09/23/16 19:55 White Blood Count 7.77 K/uL Red Blood Count 4.99 M/uL Hemoglobin 14.5 g/dL Hematocrit 42.7 % Mean Corpuscular Volume 85.6 fL Mean Corpuscular Hemoglobin 29.1 pg Mean Corpuscular Hemoglobin Concent 34.0 g/dl RDW Standard Deviation 41.4 fL RDW Coefficient of Variation 13.2 % Platelet Count 282 K/uL Mean Platelet Volume 10.7 fL Bedside Glucose 96 mg/dl 93 mg/dl 119 mg/dl Test 09/24/16 06:37 09/24/16 07:02 09/24/16 07:45 White Blood Count 12.09 K/uL Red Blood Count 4.81 M/uL Hemoglobin 12.8 g/dL Hematocrit 41.7 % Mean Corpuscular Volume 86.7 fL Mean Corpuscular Hemoglobin 26.6 pg Mean Corpuscular Hemoglobin Concent 30.7 g/dl RDW Standard Deviation 42.9 fL RDW Coefficient of Variation 13.5 % Platelet Count 142 K/uL Mean Platelet Volume 12.1 fL Sodium Level 140 mmol/L Potassium Level mmol/L 4.1 mmol/L Chloride Level 102 mmol/L Carbon Dioxide Level 30 mmol/L Anion Gap 8.0 mmol/L Blood Urea Nitrogen 9 mg/dl Creatinine 0.90 mg/dl Est Creatinine Clear Calc Drug Dose 179.4 ml/min Estimated GFR () 129.6 Estimated GFR (Non- 111.8 BUN/Creatinine Ratio 10.4 Random Glucose 128 mg/dl Estimated Average Glucose 192 mg/dl Hemoglobin A1c 8.3 % Calcium Level 9.2 mg/dl Magnesium Level mg/dl 2.2 mg/dl Bedside Glucose 130 mg/dl Assessment and Plan This is a 31 year old male with PMH of insulin dependent DM2, morbid obesity - presented for a right knee meniscal repair staying due to hypoxia Hypoxia 3/ oxygen saturation improved CXR with no acute findings, some expected atelectasis again, likely related to sleep apnea - sleep study as outpatient pending saturation improved as anesthesia and pain medications wearing off can d/c home - PCP, orthopedics, sleep study follow-ups 09/23 multifactorial: sleep apnea, morbid obesity, anesthesia, pain medications oxygen level improving with oxygen CPAP ordered for nocturnal use outpatient sleep study is pending ordered CXR incentive spirometer to prevent atelectasis monitor in tele overnight, observation status Right Meniscus Repair 3/2 POD #1 given morphine, Percocet last night which helped will be discharged with hydrocodone as per ortho discharge instructions as per ortho POD #0 pain controlled No other restrictions noted by orthopedic surgery - discharge instructions as per ortho Insulin Dependent DM2 3/2 continue home regimen on discharge 3/1 home regimen of 20 units of Novolog TID and 70 units of Lantus HS decreased dose while in patient; patient did not eat anything today (3/) diabetic diet, check HA1c in AM Leukocytosis expected WBC increase with natalio-operative steroid use no sign of infection Expected Acute Blood Loss Anemia H/H dropped from 14.5 to 12.8 expected acute blood loss, no symptoms, no other management needed DVT ppx subq heparin FULL CODE d/c home today Discharge planning: home
--- NOTE | 2016-09-24 08:31 | Discharge Instructions ---
Discharge Instructions Admission Reason for Admission: Right Knee Lateral Meniscus Tear, Chondromalacia P Discharge Discharge Diagnosis / Problem: Right Lateral Mesiscal Tear Repair; Hypoxia Discharge Goals Goal(s): Decrease discomfort, Improve function, Diagnostic testing, Therapeutic intervention Activity Recommendations Activity Limitations: per Instructions/Follow-up section . Instructions / Follow-Up Instructions / Follow-Up Please follow-up with Dr. Prieto on September 28 @ 12:50PM You will get a phone call for a follow-up with orthopedics - follow their instructions Use pain medications only as needed and do not drive while taking these medications Outpatient sleep study Current Hospital Diet Patient's current hospital diet: Diabetes Type 2 Diet Discharge Diet Recommended Diet: Diabetes Type 2 Diet Procedures Procedures Performed: Right Knee Arthroscopic Partial Lateral Menisectomy Pending Studies Studies pending at discharge: no Laboratory Results Hemoglobin A1c Test 09/24/16 06:37 Range/Units Estimated Average Glucose 192 mg/dl Hemoglobin A1c 8.3 H 4.5-5.6 % Medical Emergencies . Who to Call and When: Medical Emergencies: If at any time you feel your situation is an emergency, please call 911 immediately. . Non-Emergent Contact Non-Emergency issues call your: Primary Care Provider, Surgeon . . "Provider Documentation" section prepared by Dagoberto Carr. VTE Core Measure Inpt VTE Proph given/why not?: Unfractionated heparin SQ
--- NOTE | 2016-09-24 08:33 | Discharge Summary ---
Discharge Summary Date of Service Sep 24, 2016. Discharge Summary Admission Date: Sep 23, 2016 at 18:00 Discharge Date: Sep 24, 2016 Discharge Disposition: Home Principal Diagnosis: Hypoxia s/p right meniscal tear repair Medication Reconciliation New Medications: Hydrocodone/Acetaminophen 5MG/325MG (Harmony 5MG/325MG) Tab 1-2 TABLETS PO q4-6 hours PRN for Pain, #36 TAB Continued Medications: Insulin Aspart (Novolog) 100 Units/Ml Inj 20 UNITS SQ AC Insulin Glargine (Lantus) 100 Unit/Ml Inj 70 UNITS SQ 8PM Admission Information HPI (per Admitting provider): This is a 31 year old male with PMH of insulin dependent DM2, morbid obesity - presented for a right knee meniscal repair; was about to be sent home from the OR, but they noted that he was hypoxic - he states that he is to have a sleep study for sleep apnea - and was started on CPAP and his oxygen level has increased and improved. He denies any symptoms currently. No other problems/ issues to note. Physical Exam (per Admitting): General Appearance: no apparent distress, + obese ENT: hearing grossly normal Respiratory/Chest: chest non-tender, lungs clear, normal breath sounds, no respiratory distress, no accessory muscle use Cardiovascular: regular rate, rhythm, no edema, no gallop, no JVD, no murmur , normal peripheral pulses Abdomen/GI: normal bowel sounds, non tender, soft Extremities/Musculoskelatal: no calf tenderness, normal capillary refill, no pedal edema, + pertinent finding (right knee surgical dressing) Neurologic/Psych: no motor/sensory deficits, alert, normal mood/affect Skin: normal color Lymphatic: no adenopathy Hospital Course This is a 31 year old male with PMH of insulin dependent DM2, morbid obesity - presented for a right knee meniscal repair staying due to hypoxia Hypoxia 3/2 oxygen saturation improved CXR with no acute findings, some expected atelectasis again, likely related to sleep apnea - sleep study as outpatient pending saturation improved as anesthesia and pain medications wearing off can d/c home - PCP, orthopedics, sleep study follow-ups 09/23 multifactorial: sleep apnea, morbid obesity, anesthesia, pain medications oxygen level improving with oxygen CPAP ordered for nocturnal use outpatient sleep study is pending ordered CXR incentive spirometer to prevent atelectasis monitor in tele overnight, observation status Right Meniscus Repair 3/2 POD #1 given morphine, Percocet last night which helped will be discharged with hydrocodone as per ortho discharge instructions as per ortho POD #0 pain controlled No other restrictions noted by orthopedic surgery - discharge instructions as per ortho Insulin Dependent DM2 3/2 continue home regimen on discharge 3/ home regimen of 20 units of Novolog TID and 70 units of Lantus HS decreased dose while in patient; patient did not eat anything today (09/23) diabetic diet, check HA1c in AM Leukocytosis expected WBC increase with natalio-operative steroid use no sign of infection Expected Acute Blood Loss Anemia H/H dropped from 14.5 to 12.8 expected acute blood loss, no symptoms, no other management needed DVT ppx subq heparin FULL CODE d/c home today Discharge planning: home Total time spent on discharge = 35 minutes This includes examination of the patient, discharge planning, medication reconciliation, and communication with other providers. Discharge Instructions Please follow-up with Dr. Prieto on September 28 @ 12:50PM You will get a phone call for a follow-up with orthopedics - follow their instructions Use pain medications only as needed and do not drive while taking these medications Outpatient sleep study
[2016-09-24 08:54] VITALS: BP 151/77; PULSE 89; TEMP 36.9; O2SAT 93
--- NOTE | 2016-09-25 09:11 | EDITING REQUIRED CODING QUERY ---
CODING QUERY To promote full compliance with coding requirements relating to patient care, provider participation is requested in all cases of stake driver uncertainty. Please assist us with the question(s) below: Coding Question(s): Dr. Salas, For correct code selection please clarify the diagnosis of right lateral meniscal tear: ( ) Current injury - Please specify cause of injury: ( ) Bucket-handle ( ) Complex ( ) Peripheral ( ) Other ( ) Old tear ( ) anterior horn ( ) posterior horn ( ) other ( ) Other, please explain Physician's Response(s): Thank you for your time, KIARRA Urbano, ELECTRONIC DEVICE MONITOR
[2016-11-12] MEDS ORDERED: ATOR10TA88 PO (16:31)
== END 2016-09-24 10:12 | disposition home or self-care (01) ==
LOC: ENRESERVDT → ENRESERVTM → C.ACU 13:34 → INTOOBSV 18:00 → C.2T 18:00
PROVIDERS: ADMIT Family Medicine; ATTEND Family Medicine
DX: M23.251 Derangement of posterior horn of lateral meniscus due to old tear or injury, right knee (principal); Z68.43 Body mass index [BMI] 50.0-59.9, adult; R09.02 Hypoxemia; M22.41 Chondromalacia patellae, right knee; E11.9 Type 2 diabetes mellitus without complications; G47.30 Sleep apnea, unspecified; M19.90 Unspecified osteoarthritis, unspecified site; E66.01 Morbid (severe) obesity due to excess calories; Z79.4 Long term (current) use of insulin; Z83.3 Family history of diabetes mellitus

== ENCOUNTER 2016-11-12 15:29 | Emergency (ER) | payer OTHER ==
[~2016-11-12] VITALS: Ht 177.8 cm; Wt 158.7 kg
[~2016-11-12 15:29] MED LIST changes: +HYDR-5688 PO; -LACTATED RINGER'S 1000ML 1,000 ML IV SCH
[2016-11-12 15:31] VITALS: TEMP 36.5; Ht 177.8 cm; Wt 158.7 kg
[2016-11-12] MEDS ORDERED: ATOR10TA82 PO (16:31)
[2016-11-12] MEDS ORDERED: NVLGI/PEN SC (16:31)
[2016-11-12] MEDS ORDERED: CELE100C PO (16:31)
[2016-11-12] MEDS ORDERED: INSDGIPEN SC (16:31)
--- NOTE | 2016-11-12 17:17 | DIAGNOSTIC IMAGING REPORT ---
LEFT LOWER EXTREMITY VENOUS DOPPLER HISTORY: left leg swelling. R knee surg 1 mo ago COMPARISON STUDY: None. FINDINGS: There is normal compressibility, flow, and augmentation within the left lower extremity deep venous system. IMPRESSION: No DVT within the left lower extremity. Electronically signed by: Bj Sánchez M.D. 11/12/2016 5:15 PM Dictated Date/Time: 11/12/2016 5:14 PM
[2016-11-12 17:35] VITALS: BP 179/106; PULSE 80; O2SAT 90
--- NOTE | 2016-11-12 18:07 | EMERGENCY ROOM VISIT NOTE ---
History First contact with patient: 15:35 Chief Complaint: CALF PAIN Stated Complaint: POSSIBLE BLOOD CLOT IN LEFT LEG History of Present Illness The patient is a 31 year old male who presents to the Emergency Room with complaints of left calf pain for the past one to 2 weeks. The patient has a history of right knee meniscus repair about 1 month ago, which is healing well. He is undergoing physical therapy for his right knee, and states that discussed his left calf pain with his therapist, who referred him back to a primary care provider. The patient tried to go to urgent care clinic but they did not have ultrasound capabilities and referred the patient to the ER. The patient does not have chest pain, chest tightness, shortness of breath. He does not have a history of DVT or PE. No coagulopathy. He is diabetic and is on Lipitor. He does not have other risk factors such as travel. He rates his current discomfort a 2/10 and nonradiating. He has not taken anything over-the- counter for his discomfort. Review of Systems More than 10 systems were reviewed and otherwise negative with the exception of history of present illness. Past Medical/Surgical History Medical Problems: (1) Chest pain (2) DM type 2 (diabetes mellitus, type 2) (3) Hypoxia (4) Rhabdomyolysis (5) Right knee injury Surgical Problems: (1) No significant past surgical history Family History Diabetes mellitus MOTHER Social History Smoking Status: Never Smoker Alcohol Use: none Drug Use: none Marital Status: single Occupation Status: employed Current/Historical Medications Scheduled Atorvastatin (Lipitor), 10 MG PO DAILY Celecoxib (Celebrex), 100 MG PO DAILY Insulin Aspart (Novolog Flexpen), 20 UNITS SC AC Insulin Glargine (Lantus Solostar), 70 UNITS SC QD@1999 Allergies Coded Allergies: No Known Allergies (Unverified , 09/23/16) Physical Exam Vital Signs Date Time Temp Pulse Resp B/P Pulse Ox O2 Delivery O2 Flow Rate FiO2 11/12/16 17:35 80 21 179/106 90 Room Air 11/12/16 15:31 36.5 86 18 141/93 94 Room Air Pain Rating (0-10): 3.0 Physical Exam VITALS: Vitals are noted on the nurse's note and reviewed by myself. Vital signs stable. GENERAL: Well-developed, well-nourished, black male, who is in no acute distress and resting comfortably. Patient is cooperative with the examination. HEAD: Normocephalic atraumatic. HEART: Regular rate and rhythm without murmurs gallops or rubs. LUNGS: Clear to auscultation bilaterally without wheezes, rales or rhonchi. No retractions or accessory muscle use. MUSCULOSKELETAL: Mild tenderness appreciated along the medial aspect of the left calf. There is a palpable nodule of unknown significance measuring approximately 1 cm in diameter. This could be a vascular valve, but certainly could also be a cord. The patient has full sensation and range of motion distally. Medical Decision & Procedures ER Provider Diagnostic Interpretation: LEFT LOWER EXTREMITY VENOUS DOPPLER HISTORY: left leg swelling. R knee surg 1 mo ago COMPARISON STUDY: None. FINDINGS: There is normal compressibility, flow, and augmentation within the left lower extremity deep venous system. IMPRESSION: No DVT within the left lower extremity. ED Course Physical exam and history were performed. Nursing notes and EMR were reviewed. Patient appears to have pain in his left calf. He does have a recent surgical history and a palpable lump as noted. Because of his symptoms I did elect to perform an ultrasound. Ultrasound does not show evidence of significant finding such as mass, infection, or DVT. The patient does not have chest pain or shortness of breath. His vital signs are stable. I do not suspect a PE. Overall the patient appears stable for discharge home. He is to use over-the- counter analgesics for pain and discomfort. He was invited back to the ER with any new, worsening, or concerning symptoms. The chart was completed utilizing [employer] Speech Voice Recognition Software. Grammatical errors, random word insertions, pronoun errors, and incomplete sentences are an occasional consequence of this system due to software limitations, ambient noise, and hardware issues. Any formal questions or concerns about the content, text, or information contained within the body of this dictation should be directly addressed to the provider for clarification. . Medical Decision Differential diagnosis: Etiologies such as DVT, musculoskeletal, infection, joint effusion, trauma, lymphedema, idiopathic, CHF, as well as others were entertained.. Impression Primary Impression: Pain of left calf Departure Information Dispostion Home / Self-Care Condition GOOD Forms HOME CARE DOCUMENTATION FORM, IMPORTANT VISIT INFORMATION Patient Instructions My [facility] Additional Instructions You were seen and evaluated today on an emergency basis only. This is not a substitute for, or an effort to provide, complete comprehensive medical care. It is not possible to recognize and treat all injuries or illnesses in a single emergency department visit. For this reason it is recommended that you followup with your primary care physician with any ongoing or persistent symptoms For baseline pain relief you may alternate ibuprofen and acetaminophen every 4 hours for pain control. Take 600 mg ibuprofen (Advil) and then 4 hours later take 1000 mg acetaminophen (Tylenol). Do not take more than 3000 mg acetaminophen in a single day. You are welcome to return to the emergency department anytime with new, worsening, or concerning symptoms.
== END 2016-11-12 17:36 | disposition home or self-care (01) ==
LOC: C.EDB 15:31 → C.EDD 17:36
DX: M79.662 Pain in left lower leg (principal); E11.9 Type 2 diabetes mellitus without complications; M62.82 Rhabdomyolysis; Z83.3 Family history of diabetes mellitus; Z79.4 Long term (current) use of insulin; Z79.899 Other long term (current) drug therapy

== ENCOUNTER → 2016-11-15 | Outpatient (CLI) | payer OTHER ==
[~2016-11-15] MED LIST changes: +ATOR10TA82 PO; +CELE100C PO; -HYDR-5688 PO; -INSDGI SQ; +INSDGIPEN SC; -NVLG SQ; +NVLGI/PEN SC
--- NOTE | 2016-11-16 08:31 | SPLIT NIGHT TECHNICIAN REPORT ---
[facility] Split Night Polysomnogram - Customer Quality Engineer Report Study date: 11/15/2016 Referring Physician: Amanda Schmitt M.D. Name: RADHA LUIS Customer Quality Engineer: NO Edmond. Date of : 1985 Height: 31 years, Height 5' 10" Sex: Male Weight: 355 lbs Age: 31 Neck Circum: 20 inches BMI: Medications: 50.93 Insulin, Ibuprofen Patient History 31 yr. old male here for a possible split night sleep study with [id number] in room 4. He does not feel rested upon waking, and snores loud. Patients [place] Sleepiness Scale score is 5/24. Parameters Monitored NPSG: E1-M2, E2-M1, Fp1-M2, Fp2-M1, F3-M2, F4-M2, F4-M1, C3-M2, C4-M2, C4-M1, O1-M2, O2-M2, O2-M1, T3-M2, T4-M1, P3-M2, P4-M1, CHIN1, CHIN2, HR, EKG, Legs, PFLOW, SNOR, FLOW, CFLOW, Tidal Volume, THOR, ABDO, SpO2, PLTH, CPRESS, ETCO2 Wave, ETCO2, pH SLEEP SUMMARY DATA DIAGNOSTIC TREATMENT Lights Out: 10:20:25 PM NONE Lights On: 1:12:55 AM 6:10:55 AM Total Recording Time (TRT): 173.5 min. 285.0 min. Total Sleep Time (TST): 125.0 min. 255.5 min. NREM Time: 125.0 min. 171.0 min. REM Time: 0.0 min. 84.5 min. Sleep Period Time (SPT): 159.0 min. 278.0 min. Sleep Efficiency (SE): 72 % 90 % Sleep Latency: 13.5 min. NONE min. Arousal Index: 3.8 4.0 PAP Treatment Levels: 4, 6, 8, 9, 10, 12, 13, 14, 15, 18/13, 19/14, 20/15, 21/15, 22/15, 23/15 * Optimal Pressure(s) SLEEP STAGING DATA DIAGNOSTIC TREATMENT Duration (min) TST % Duration (min) TST % Stage Wake: 48.5 min. -- 28.5 min. -- WASO: 34.0 min. -- 22.5 min. -- NREM: 125.0 min. 100 % 171.0 min. 67 % Stage N1: 28.5 min. 23 % 13.5 min. 5 % Stage N2: 96.5 min. 77 % 108.0 min. 42 % Stage N3: 0.0 min. 0 % 49.5 min. 19 % REM: 0.0 min. 0 % 84.5 min. 33 % POSITIONAL DATA Event Count Index Event Count Index Supine: 126 106.5 197 62.5 Supine NREM: 126 106.5 124 71.2 Supine REM: N/A N/A 73 52 Non-Supine: 111 123.3 7 6.3 Non-Supine NREM: 111 123.3 7 6.3 Non-Supine REM: N/A N/A N/A N/A AROUSAL SUMMARY DATA: Event Count Index Event Count Index Apnea Arousals: 1 24.5 5 7.7 Hypopnea Arousals: 6 2.9 6 1.4 Snore Arousals: 0 0.0 4 0.9 PLM Arousals: 1 0.5 0 0.0 Non-Specific Arousals: 1 0.5 1 0.2 Total Arousals: 8 3.8 17 4.0 MYOCLONUS (PLM) Event Count Index Event Count Index PLM: 13 6.2 4 0.9 PLM AROUSAL: 1 0.5 0 0.0 PLM W/O AROUSAL 13 6.2 4 0.9 PLM W/RESP EVENT 1 0.0 0 0.0 MYOCLONUS (PLM) Event Count Index Event Count Index LM: 1 20.6 31 7.3 LM AROUSAL: 1 0.5 2 0.5 LM W/O AROUSAL LM W/RESP EVENT LM NON SPECIFIC 40 19.2 28 6.6 HEART RATE DATA DIAGNOSTIC TREATMENT Sleep (bpm): 83 80 REM (bpm): N/A 89 NREM (bpm): 90 92 Tachycardia Count: 0 0 Tachycardia Duration: 0.00 0 Bradycardia Count: 0 0 Bradycardia Duration: 0.00 0 DIAGNOSTIC PORTION TREATMENT PORTION RESPIRATORY DATA Event Count Index Event Count Index AHI: -- 113.8 -- 47.9 RDI: -- 113.8 -- 48 Obstructive Apnea: 51 24.5 29 6.8 Central Apnea: 0 0.0 2 0.5 Mixed Apnea: 0 0.0 2 0.5 Hypopnea: 186 89.3 171 40.2 RERA: 0 0.0 0 0.0 Total Apneas: 51 24.5 33 7.7 RESPIRATORY DATA REM NREM SLEEP REM NREM SLEEP Supine Position: Obstructive Apneas: N/A 25 25 16 9 25 Central Apneas: N/A 0 0 0 2 2 Mixed Apneas: N/A 0 0 2 0 2 Hypopneas: N/A 101 101 55 113 168 RERA N/A 0 0 0 0 0 Total Supine Events: N/A 126 126 73 124 197 Supine AHI: N/A 106.5 106.5 52 71.2 62.5 Supine RDI: N/A 106.5 106.5 51.8 71.2 62.5 REM NREM SLEEP REM NREM SLEEP Non-Supine Position: Obstructive Apneas: N/A 26 26 N/A 4 4 Central Apneas: N/A 0 0 N/A 0 0 Mixed Apneas: N/A 0 0 N/A 0 0 Hypopneas: N/A 85 85 N/A 3 3 RERA N/A 0 0 N/A 0 0 Total Supine Events: N/A 111 111 N/A 7 7 Supine AHI: N/A 123.3 123.3 N/A 6.3 6.3 Supine RDI: N/A 123.3 123.3 N/A 6.3 6.3 OXYGEN DESTAURATION DATA: Event Count Index Event Count Index REM Desaturations: N/A N/A 76 54.0 NREM Desaturations: 237 113.8 134 47.0 SNORE DATA DIAGNOSTIC TREATMENT Snore Time: 30.6 1:32:55 AM Snore TST%: 15 29 Snore Arousal Count: 0 4 Snore Arousal Index: 0.0 0.9 Desaturation Event Summary: Minimum %SpO2 Event Count Mean/Min/Max Duration(sec.) Desaturation Index % Time In Bed > 90 438 17.9 / 5.5 / 58.5 85.7 68.6 86 - 90 93 16.9 / 6.0 / 42.0 66.2 18.8 81 - 85 15 15.5 / 5.5 / 35.8 21.8 9.2 76 - 80 9 12.6 / 4.3 / 26.5 47.0 2.6 71 - 75 2 8.0 / 4.3 / 11.8 37.2 0.7 66 - 70 0 N/A 0.0 0.1 61 - 65 0 N/A 0.0 0.0 56 - 60 0 N/A 0.0 0.0 51 - 55 0 N/A 0.0 0.0 < 50 0 N/A 0.0 0.0 OXYGEN SATURATION DATA DIAGNOSTIC TREATMENT SpO2 Mean Sleep: 90 % 91 % SpO2 Mean REM: N/A % 89 % SpO2 Mean NREM: 90 % 92 % SpO2 Minimum Sleep: 72 % 68 % SpO2 Minimum REM: N/A % 68 % SpO2 Minimum NREM: 72 % 73 % Time Below 90% (TST): 48.2 65.7 Time Below 88% (TST): 34.9 44.9 Total REM NREM Awake <50% 0.0 min. 0.0 min. 0.0 min. 0.0 min. 51 - 60% 0.0 min. 0.0 min. 0.0 min. 0.0 min. 61 - 70% 0.4 min. 0.4 min. 0.0 min. 0.0 min. 71 - 80% 14.7 min. 9.8 min. 4.9 min. 0.1 min. 81 - 90% 125.5 min. 30.8 min. 91.1 min. 3.7 min. 91 - 100% 306.7 min. 43.5 min. 199.4 min. 63.7 min. Average 91 89 91 94 Minimum SpO2 68 68 72 80 Desaturation Event Index 63.7 54.0 75.2 30.4 # Desat. Events below 89% 370 68 289 13 Time(%) with Saturation below 89% 21.8 7.0 14.3 0.5 Time(min.) with Saturation below 89% 97.6 31.2 64.2 2.2 Recording Customer Quality Engineer Comments: Mr. Luis slept in the right, left, supine and prone positions. Cardiac arrhythmia or PLMs noted. No bruxism noted. Snoring was noted and scored as a 5 on a scale of 0 through 5. (0=no snoring, 5=snoring loud enough to be heard through a closed door or down the raphael way) At 1:25 am Mr. Luis , met specific Split-Night criteria during the diagnostic portion of this study. CPAP was initiated at +4 CMH2O room air and up-titrated to a level of + 15 CMH2O no Cflex. Mr. Luis was still having apneas at this pressure and he was switched to BiPAP. PAP initiated at an IPAP of +18 CMH2O and an EPAP of +13 CMH2O up-titrated to a level of: IPAP +23 CMH2O, EPAP +15 CMH20 (snoring was still audible). A [employer] and [employer] Simplus in a medium, was used during titration. He awoke to use the restroom two times during the night. Mr. Rome stated, "that was a normal night." The final report will be interpreted and signed by a sleep physician. The completed physician report will then be placed in the patient medical record. Therapy Event: Therapy (cm H20) 0 4 6 8 9 10 12 13 Total Time at Pressure (min.) 173.5 14.4 10.5 13.5 15.9 11.2 11.8 9.9 TST at Pressure (min.) 125.0 6.9 10.0 13.5 15.4 10.7 11.8 9.9 # Periods 1 1 1 1 1 1 1 1 Sleep Onset (min.) 13.5 6.0 0.0 0.0 0.0 0.0 0.0 0.0 REM Onset (min.) N/A N/A N/A N/A N/A N/A 5.5 0.0 Sleep Efficiency % 72 48 95 100 96 95 100 100 Wakefulness (%) 27.9 52.0 4.8 0.0 3.1 4.5 0.0 0.0 Wakefulness (min.) 48.5 7.5 0.5 0.0 0.5 0.5 0.0 0.0 NREM 1 (%) 16.4 20.8 23.8 0.0 6.3 0.1 8.3 0.0 NREM 1 (min.) 28.5 3.0 2.5 0.0 1.0 0.0 1.0 0.0 NREM 2 (%) 55.6 27.2 71.4 100.0 90.6 95.4 42.2 0.0 NREM 2 (min.) 96.5 3.9 7.5 13.5 14.4 10.7 5.0 0.0 NREM 3 (%) 0.0 0.0 0.0 0.0 0.0 0.0 0.0 0.0 NREM 3 (min.) 0.0 0.0 0.0 0.0 0.0 0.0 0.0 0.0 REM (%) 0.0 0.0 0.0 0.0 0.0 0.0 49.5 100.0 REM (min.) 0.0 0.0 0.0 0.0 0.0 0.0 5.9 9.9 # Arousals 8 1 0 0 0 1 1 5 Arousal Index 3.8 8.7 0.0 0.0 0.0 5.6 5.1 30.4 # Snore 668 16 56 90 167 72 102 40 Snore Index 320.6 138.4 336.4 400.3 651.8 402.6 516.9 243.1 AHI 113.8 69.2 114.1 146.8 97.6 83.9 76.0 97.3 AHI Supine 106.5 69.2 114.1 146.8 97.6 83.9 76.0 97.3 AHI Non-Supine 123.3 N/A N/A N/A N/A N/A N/A N/A NREM AHI 113.8 69.2 114.1 146.8 97.6 83.9 60.2 N/A REM AHI N/A N/A N/A N/A N/A N/A 92.2 97.3 RDI 113.8 69.2 114.1 146.8 97.6 83.9 76.0 97.3 # Obstructive 51 2 2 0 0 1 7 2 # Central Ap 0 1 1 0 0 0 0 0 # Mixed 0 0 0 0 0 0 0 1 # Hypopneas 186 5 16 33 25 14 8 13 RERAS 0 0 0 0 0 0 0 0 Total Respiratory Events 237 8 19 33 25 15 15 16 Time Below SpO2 89.00% (min.) 40.7 0.5 1.3 5.3 6.8 4.6 6.0 8.5 Mean NREM SpO2 (%) 90 92 91 89 89 89 90 N/A Mean REM SpO2 (%) N/A N/A N/A N/A N/A N/A 86 80 Mean Sleep SpO2 (%) 90 92 91 89 89 89 88 80 Min NREM SpO2 (%) 72 87 83 81 80 82 73 N/A Min REM SpO2 (%) N/A N/A N/A N/A N/A N/A 73 68 Position Supine (min.) 71.0 6.9 10.0 13.5 15.4 10.7 11.8 9.9 Position Non-supine (min.) 54.0 0.0 0.0 0.0 0.0 0.0 0.0 0.0 LM Index Sleep 26.9 8.7 30.0 0.0 27.3 11.2 5.1 6.1 LM Index NREM 26.9 8.7 30.0 0.0 27.3 11.2 0.0 N/A LM Index REM N/A N/A N/A N/A N/A N/A 10.2 6.1 Mean Heart Rate (bpm) 83 82 81 79 79 79 77 81 Min Heart Rate (bpm) 63 76 75 69 70 71 63 64 Therapy (cm H20) 14 15 18/13 19/14 20/15 21/15 22/15 23/15 Total Time at Pressure (min.) 13.6 10.4 14.1 10.6 15.6 9.7 41.7 81.1 TST at Pressure (min.) 13.6 10.4 14.1 10.6 15.6 9.7 28.7 74.6 # Periods 1 1 1 1 1 1 1 1 Sleep Onset (min.) 0.0 0.0 0.0 0.0 0.0 0.0 0.0 0.0 REM Onset (min.) 0.0 0.0 0.0 0.0 0.0 0.0 N/A N/A Sleep Efficiency % 100 100 100 100 100 100 68 92 Wakefulness (%) 0.0 0.0 0.0 0.0 0.0 0.0 31.2 8.0 Wakefulness (min.) 0.0 0.0 0.0 0.0 0.0 0.0 13.0 6.5 NREM 1 (%) 0.0 0.0 0.0 0.0 0.0 10.3 7.2 2.5 NREM 1 (min.) 0.0 0.0 0.0 0.0 0.0 1.0 3.0 2.0 NREM 2 (%) 0.0 0.0 0.0 0.0 0.0 43.5 14.8 52.5 NREM 2 (min.) 0.0 0.0 0.0 0.0 0.0 4.2 6.2 42.6 NREM 3 (%) 0.0 0.0 0.0 0.0 0.0 0.0 46.8 37.0 NREM 3 (min.) 0.0 0.0 0.0 0.0 0.0 0.0 19.5 30.0 REM (%) 100.0 100.0 100.0 100.0 100.0 46.2 0.0 0.0 REM (min.) 13.6 10.4 14.1 10.6 15.6 4.5 0.0 0.0 # Arousals 1 0 2 0 0 1 2 3 Arousal Index 4.4 0.0 8.5 0.0 0.0 6.2 4.2 2.4 # Snore 101 74 143 105 130 111 353 472 Snore Index 444.0 428.4 608.5 596.8 499.0 687.4 738.6 379.6 AHI 74.7 46.3 29.8 45.5 26.9 12.4 23.0 10.5 AHI Supine 74.7 46.3 29.8 45.5 26.9 12.4 23.0 44.4 AHI Non-Supine N/A N/A N/A N/A N/A N/A N/A 6.3 NREM AHI N/A N/A N/A N/A N/A 11.5 23.0 10.5 REM AHI 74.7 46.3 29.8 45.5 26.9 13.4 N/A N/A RDI 74.7 46.3 29.8 45.5 26.9 12.4 23.0 10.5 # Obstructive 2 1 2 2 0 0 3 5 # Central Ap 0 0 0 0 0 0 0 0 # Mixed 0 0 1 0 0 0 0 0 # Hypopneas 15 7 4 6 7 2 8 8 RERAS 0 0 0 0 0 0 0 0 Total Respiratory Events 17 8 7 8 7 2 11 13 Time Below SpO2 89.00% (min.) 11.3 4.1 0.8 1.6 0.6 0.4 1.0 2.0 Mean NREM SpO2 (%) N/A N/A N/A N/A N/A 92 92 92 Mean REM SpO2 (%) 84 89 93 91 92 93 N/A N/A Mean Sleep SpO2 (%) 84 89 93 91 92 92 92 92 Min NREM SpO2 (%) N/A N/A N/A N/A N/A 83 85 81 Min REM SpO2 (%) 70 75 84 79 84 89 N/A N/A Position Supine (min.) 13.6 10.4 14.1 10.6 15.6 9.7 28.7 8.1 Position Non-supine (min.) 0.0 0.0 0.0 0.0 0.0 0.0 0.0 66.5 LM Index Sleep 4.4 11.6 4.3 11.4 11.5 0.0 6.3 4.8 LM Index NREM N/A N/A N/A N/A N/A 0.0 6.3 4.8 LM Index REM 4.4 11.6 4.3 11.4 11.5 0.0 N/A N/A Mean Heart Rate (bpm) 85 86 81 78 78 83 85 78 Min Heart Rate (bpm) 76 75 68 63 65 72 75 69
--- NOTE | 2016-12-03 07:49 | POLYSOMNOGRAPH REPORT ---
REFERRING PERSON: Dr. Kiarra Schmitt. ROAD MACHINE RUNNER: Marzena Phillips. Mr. Luis is a 31-year-old male sent for a possible split night sleep study. He does not feel rested upon awakening and snores loudly at night. His Thayer sleepiness scale score on the evening of this study is 5. BMI is 50.93. Following the technical and digital specifications of the [place] [employer] (AASM) a standard diagnostic polysomnogram was performed monitoring EEG, EOG, EMG (chin and leg deviations), oxygen saturation, body position, digital video, respiratory effort and airflow. The sleep Stage and event scoring was based on the AASM Manual for the Scoring of Sleep and Associated Events 2007 edition. Apneas are defined as a drop in the peak thermal sensor excursion by >90% of baseline for at least 10 seconds. Hypopneas were scored using the 4% oxygen desaturation rule (4A-[employer]) and a decrease in the nasal pressure excursions by >30% of baseline for at least 10 seconds. Respiratory effort-related arousal (RERA's) is defined as a sequence of breaths lasting at least 10 seconds characterized by increasing respiratory effort or flattening of the nasal pressure waveform leading to an arousal from sleep when the sequence of breaths does not meet criteria for an apnea or hypopnea. Apnea Hypopnea index (AHI) is defined as the number of apneas and hypopneas occurring in an hour of sleep. Respiratory disturbance index (RDI) is defined as the number of apneas, hypopneas, and RERA's occurring in an hour of sleep. Mr. Luis did qualify for a split night sleep study. He was observed for 125 minutes of sleep time. During that time, he had 23% N1 sleep and 77% N2 sleep. There were 9 cortical arousals from sleep. One of these arousals was nonspecific, 1 was due to periodic limb movements of sleep and the remaining 7 were due to respiratory events. There were 13 periodic limb movements noted on this test. Limb movement index was 6.2. Limb movement with arousal index was 0.5. Mean saturation during observation was 90% with desaturations to 72% with a respiratory event. There were 51 obstructive apneas, no central apneas and no mixed apneas on this test. There were 186 hypopnea. Apnea-hypopnea index was 113.8 consistent with very severe sleep apnea. Therefore, at 1:30 a.m., this patient was started on CPAP therapy. Mr. Luis chose a medium [employer] Simplus full facemask for his titration. CPAP was initiated at a pressure of 4 and titrated up to a pressure of 15. Due to continued respiratory events, the patient was then switched to bilevel therapy and was titrated on BiPAP from an inspiratory pressure of 18 over an expiratory pressure of 13 to an inspiratory pressure of 23 and an expiratory pressure of 15. On this pressure snoring was still audible. He was observed on a pressure of 23/15 for 74.6 minutes. There was no REM sleep on this pressure. AHI and RDI on this pressure were 10.5, which is a marked improvement from previous. Saturations were less than 89% for 2 minutes of recorded time. IMPRESSION AND PLAN: 31-year-old male with very severe sleep apnea who appears to respond to bilevel therapy but requires high pressures to improve that apnea. Snoring is still audible on these high pressures. I would recommend that he be started on BIPAP therapy at 23/15. A download from his machine can be reviewed in 1 month and further pressure adjustments can be made based on that data. He appeared to do well on a medium Simplus full facemask.
== END | disposition home or self-care (01) ==
LOC: C.NEUR 21:00
PROVIDERS: ATTEND Family Medicine
DX: G47.10 Hypersomnia, unspecified (principal); R06.83 Snoring; E66.01 Morbid (severe) obesity due to excess calories

== ENCOUNTER 2024-11-07 03:18 | Inpatient (IN) ==
[2024-11-07] MEDS ORDERED: VANCOMYCIN CONSULT ACTIVE PRN (03:34)
--- NOTE | 2024-11-07 03:54 | Emergency Department Note ---
History of Present Illness General Chief complaint: Back Injury/Pain Stated complaint: SEVERE BACK PAIN Time Seen by Provider: 11/07/24 03:29 History of Present Illness Maximum Pain Intensity: 10 This 39-year-old diabetic presents to ER for worsening cellulitis and pain to his mid to low back. Patient was seen this morning. He is placed on Keflex and Bactrim. He had a CT scan of the abdomen pelvis that showed cellulitis to the back. Patient states since then his pain is gotten much more severe and the infection has spread. He also complains of subjective fever and chills and nausea. Patient denies numbness, tingling, inability to walk, chest pain, dyspnea. No history of IV drug abuse. No heavy alcohol use. No tobacco use. Home Medications Medication Instructions Recorded Confirmed Type meloxicam 15 mg tablet 15 mg PO DAILY PRN pain #30 tabs 09/21/24 09/21/24 Rx cephalexin 500 mg capsule 500 mg PO Q6H 10 days #40 caps 11/06/24 Rx metformin 500 mg tablet 500 mg PO DAILY #20 tabs 11/06/24 Rx sulfamethoxazole 800 1 tab PO Q12H #20 tabs 11/06/24 Rx mg-trimethoprim 160 mg tablet (Bactrim DS) Allergies Allergy/AdvReac Type Severity Reaction Status Date / Time No Known Allergies Allergy Unverified 09/21/24 09:39 Past Med/Surg History Problem List (Updated 11/07/24 @ 06:05 by Bere Kolb PA-C) Cutaneous abscess of back excluding buttocks (Acute) Failure of outpatient treatment (Acute) Cellulitis of back (Acute) Acute hyperglycemia (Acute) Acute hyperglycemia (Acute) Back pain (Acute) Cellulitis (Acute) Chest pain Diabetes mellitus, new onset (Acute) Hypoxia Pain of left calf (Acute) Medical History Rhabdomyolysis DKA (diabetic ketoacidoses) DM type 2 (diabetes mellitus, type 2) Social History (Updated 09/08/24 @ 21:49 by Osiel Sanchez) Smoking Status: Never smoker Preferred Language: Albanian current occupational status: employed Feels Safe at Home: Yes Review of Systems A total of 10 systems reviewed and were otherwise negative Physical Exam Vital Signs Vital Signs - 24 hr 11/07/24 03:19 11/07/24 05:52 11/07/24 05:53 Temperature 36.9 C Temperature Source Oral Pulse Rate 95 H 84 Pulse Rate [Apical] 85 Pulse Rhythm Regular Pulse Strength Normal Respiratory Rate 18 16 18 Respiratory Effort / Characteristics Non-Labored Spontaneous Non-Labored Spontaneous Respiratory Depth Normal Normal Respiratory Pattern Regular Regular Blood Pressure 144/79 H Blood Pressure [Right Arm] 134/81 Blood Pressure Mean 100 Blood Pressure Mean [Right Arm] 98 Pulse Oximetry 97 94 97 Oxygen Delivery Method Room Air Room Air Room Air Sepsis Recent Fever Within 48 Hours No Sepsis New/Unexplained Change in Mental Status No Sepsis Action Taken by Nursing No Action Required 11/07/24 05:53 Temperature Temperature Source Pulse Rate 86 Pulse Rate [Apical] Pulse Rhythm Pulse Strength Respiratory Rate Respiratory Effort / Characteristics Respiratory Depth Respiratory Pattern Blood Pressure Blood Pressure [Right Arm] Blood Pressure Mean Blood Pressure Mean [Right Arm] Pulse Oximetry Oxygen Delivery Method Sepsis Recent Fever Within 48 Hours Sepsis New/Unexplained Change in Mental Status Sepsis Action Taken by Nursing VITALS: Vitals are noted on the nurse's note and reviewed by myself. Vital signs mildly tachycardic. GENERAL: Male who appears in pain, in no acute distress, nondiaphoretic, well- developed well-nourished. SKIN: Mid to low back erythematous and edematous with induration over the spine concerning for extensive cellulitis and possible developing abscess. The rest of the skin was without rashes, erythema, edema, or bruising. There is no tenting of the skin. Capillary reflex less than 2 seconds. HEAD: Normocephalic atraumatic. EARS: External auditory canals clear EYES: Pupils equal round and reactive to light and accommodation. Conjunctivae without injection, sclerae without icterus. Extraocular movements intact. NOSE: Patent, no discharge. MOUTH: Mucous membranes moist. Pharynx without erythema or exudate. Uvula midline. Airway patent. Tongue does not deviate. NECK: Supple without nuchal rigidity. No lymphadenopathy. No thyromegaly. Cervical spine is nontender. No JVD. HEART: Regular rate and rhythm LUNGS: Clear to auscultation bilaterally without wheezes, rales or rhonchi. No retractions or accessory muscle use. ABDOMEN: Positive bowel sounds x 4. Normal tympanic percussion. Soft, nontender, without masses or organomegaly. Mcdonald sign negative. No guarding or rebound tenderness. No CVA tenderness MUSCULOSKELETAL: No muscle atrophy, erythema, or edema noted. 5 out of 5 strength throughout. Patient can plantarflex and dorsiflex. Tenderness over the mid to low thoracic and upper lumbar spine. This is where the cellulitis is present. NEURO: Patient was alert and oriented to person place and time. Normal sensation to light and sharp touch. No focal neurological deficits. Course Administered Medications Morphine Sulfate (Morphine Sulfate 4 Mg/Ml 1 Ml Carp\Vial) 4 mg IV Q15M [facility] Stop: 11/21/24 03:44 Last Admin: 11/07/24 05:59 Dose: 4 mg Documented By: account director: 11/07/24 05:59 Dose: Not Given Documented By: account director: 11/07/24 05:58 Dose: Not Given Documented By: account director: 11/07/24 05:58 Dose: Not Given Documented By: account director: 11/07/24 04:45 Dose: Not Given Documented By: account director: 11/07/24 04:45 Dose: Not Given Documented By: account director: 11/07/24 04:45 Dose: Not Given Documented By: account director: 11/07/24 04:44 Dose: Not Given Documented By: account director: 11/07/24 04:08 Dose: 4 mg Documented By: MED Discontinued Medications Gadobutrol (Gadobutrol 65ml Vial) 11 ml IV ONCE ONE Stop: 11/07/24 05:20 Last Admin: 11/07/24 05:20 Dose: 11 ml Documented By: MIGUEL Sodium Chloride (Nss) 1,000 mls @ 999 mls/hr IV .Q1H1M [facility] Stop: 11/07/24 04:45 Last Admin: 11/07/24 04:10 Dose: 999 mls/hr Documented By: MED Medical Decision Making Medical Records Attestation: I reviewed the patient's medical records. Home Medications Current Medication List: was personally reviewed by me Laboratory Data Attestation: I reviewed the patient's lab results. 11/07/24 03:34 11/07/24 03:34 Lab Results 11/07/24 11/07/24 11/07/24 Range/Units 03:34 03:46 05:54 WBC 14.98 H (4.8-10.8) K/ul RBC 4.73 (4.70-6.10) M/uL Hgb 13.2 L (14.0-18.0) g/dl Hct 39.0 L (42.0-52.0) % MCV 82.5 (80.0-100.0) fL MCH 27.9 (25.0-34.0) pg MCHC 33.8 (32.0-36.0) g/dL RDW Std Deviation 34.6 L (36.4-46.3) fL RDW Coeff of Mel 11.5 (11.5-14.5) % Plt Count 255 (130-400) K/uL MPV 10.9 (9.4-12.4) fL Immature Gran % (Auto) 0.5 % Neut % (Auto) 80.2 % Lymph % (Auto) 9.5 % [place] % (Auto) 9.1 % Eos % (Auto) 0.5 % Baso % (Auto) 0.2 % Neut # (Auto) 12.02 H (1.40-6.50) K/uL Lymph # (Auto) 1.42 (1.20-3.40) K/uL [place] # (Auto) 1.36 H (0.11-0.59) K/uL Eos # (Auto) 0.07 (0.00-0.50) K/uL Baso # (Auto) 0.03 (0.00-0.20) K/uL Immature Gran # (Auto) 0.08 (0.01-0.20) K/uL ESR 81 H (0-15) mm/hr PT 11.4 (9.0-12.0) Seconds INR 1.1 (0.9-1.1) APTT 32 H (21-31) Seconds PTT Ratio 1.2 Sodium 133 L (136-145) mmol/L Potassium 3.4 L (3.5-5.1) mmol/L Chloride 100 (98-107) mmol/L Carbon Dioxide 25 (21-32) mmol/L Anion Gap 8 (3-11) BUN 12 (6-23) mg/dl Creatinine 1.08 D (0.6-1.4) mg/dl Est Cr Clr Drug Dosing 109.7 ml/min eGFR 88.41 BUN/Creatinine Ratio 11.1 (10-20) Glucose 347 H* (70-99(Fasting)) mg/dl Lactate 1.5 (0.4-2.0) mmol/L Calcium 8.8 (8.6-10.3) mg/dl Magnesium 1.8 (1.7-2.4) mg/dl Total Bilirubin 0.7 (0.2-1.0) mg/dl Direct Bilirubin 0.2 (0-0.2) mg/dl AST 11 L (13-39) U/L ALT 7 (7-52) U/L Alkaline Phosphatase 77 (34-104) U/L Total Creatine Kinase 76 (30-223) U/L Troponin I High Sens 6.3 (0-20) pg/ml C-Reactive Protein 22.48 H (0-0.5) mg/dl Total Protein 7.0 (6.0-8.3) gm/dl Albumin 3.5 (3.4-5.0) gm/dl Procalcitonin 0.10 (0-0.5) ng/ml Urine Color Yellow Urine Appearance Clear (Clear) Urine pH 6.0 (4.5-7.5) Ur Specific [place] 1.010 (1.000-1.030) Urine Protein Negative (Negative) Urine Glucose (UA) 3+ H (Negative) Urine Ketones Negative (Negative) Urine Blood 1+ H (Negative) Urine Nitrite Negative (Negative) Urine Bilirubin Negative (Negative) Urine Urobilinogen Negative (Negative) Ur Leukocyte Esterase Negative (Negative) Urine RBC 11-20 H (0-2) /hpf Urine WBC 6-10 H (0-5) /hpf Ur Epithelial Cells 0-2 (0-2) /hpf Urine Bacteria None Seen (None Seen) Imaging Data Attestation: I personally reviewed and interpreted this imaging study as follows: Radiologist's Impression: Chest X-Ray 11/07/24 03:34 EXAM: XR chest 1V portable CLINICAL HISTORY: Sepsis TECHNIQUE: An X-ray image of the chest is obtained in AP projection. COMPARISON: 05/14/2024 XR chest FINDINGS: Pulmonary Parenchyma: Prominent both chhaya with perihilar and basal accentuated bronchovascular markings and peribronchial wall thickening, suggesting lung congestion. No evidence of consolidation, collapse, or focal opacities. No pulmonary nodules are identified. No evidence of pleural effusion or pleural thickening. Heart and Mediastinum: Heart size and shape are normal. No mediastinal widening or masses. No hilar or mediastinal lymphadenopathy. Bony Thorax: Bony thorax appears intact without fractures or deformities. Soft Tissues: Soft tissues overlying the chest wall are unremarkable. IMPRESSION: 1. Prominent both chhaya with perihilar and basal accentuated bronchovascular markings and peribronchial wall thickening, suggesting lung congestion interval changes. 2. No acute cardiopulmonary abnormalities are identified. Electronically signed by Wilman Mendoza 11-07-2024 04:38 AM Lumbar Spine MRI 11/07/24 03:34 EXAM: MR lumbar spine wo/w con CLINICAL HISTORY: severe mid/low back pain,? abcesss TECHNIQUE: Multisequential and multiplanar images of the lumbar spine were submitted for review without and with contrast. COMPARISON: none FINDINGS: Ill defined peripheral enhancing multiloculated lesion seen in visualized back at lower thoracic and upper lumbar vertebral level in subcutaneous plane with significant perilesional inflammation. The conus terminates at approximately L1. Alignment of the lumbar spine is normal. Bone marrow signal is normal. No evidence of compression fracture. The visualized paravertebral soft tissues are unremarkable. No significant disc bulge/spinal canal stenosis/neural foraminal narrowing. IMPRESSION: 1. Ill defined peripheral enhancing multiloculated lesion seen in visualized back at lower thoracic and upper lumbar vertebral level in subcutaneous plane with significant perilesional inflammation--- Likely Abscess with extensive inflammatory changes in subcutaneous tissue. 2. No significant abnormality in lumbar spine. Electronically signed by Lai Scott 11-07-2024 06:01 AM Thoracic Spine MRI 11/07/24 03:34 EXAM: MR thoracic spine wo/w con CLINICAL HISTORY: severe mid/low back pain,? abcesss TECHNIQUE: Multisequential and multiplanar images of the thoracic spine were submitted for review without and with contrast. COMPARISON: none FINDINGS: Ill defined peripheral enhancing multiloculated lesion seen in visualized back at lower thoracic vertebra level(aboiut T9 to T12 level) in subcutaneous plane with significant perilesional inflammation. The lesion measures about 3.1x4.5x12cm The cord is normal in caliber and signal. No abnormal bone marrow signal demonstrated throughout the thoracic spine to suggest a fracture. Alignment of the thoracic spine is normal. No disc bulge. No canal stenosis. No neuroforaminal narrowing. No evidence of compression fracture. IMPRESSION: 1. Ill defined peripheral enhancing multiloculated lesion seen in visualized back at lower thoracic vertebra level in subcutaneous plane with significant perilesional inflammation- likely Abscess. Electronically signed by Lai Scott 11-07-2024 06:07 AM MDM Narrative Prior records reviewed and summarized as above. Triage Nursing notes reviewed. Additional history obtained from nursing. The patient's history was concerning for swelling and redness of the skin of the back. Differential diagnosis: Etiologies such as spinal abscess, spinal infection, cellulitis, abscess, MRSA infection, DVT, necrotizing fasciitis, dermatitis, drug eruption, as well as others were entertained.. Physical examination: As above ER treatment provided: Vancomycin, Zosyn, Cleocin, morphine, Zofran, IV fluids patient was sent down for MRI for possible spinal abscess Prior scans and notes were reviewed. On reassessment the patient felt better. Diagnostics interpreted by me: EKG ordered for weakness EKG: Normal sinus, no acute ST wave changes, rate 89. Impression normal sinus rhythm T wave inversions in 3 and aVF rate of 89. Impression normal sinus rhythm nonspecific T wave inversions independently interpreted by myself The labs Independently Interpreted by myself revealed elevated inflammatory markers. Negative procalcitonin. Blood cultures pending Lactic 1.5 Leukocytosis Hyperglycemia without DKA Imaging studies: Imaging was reviewed and read by radiology Patient: RADHA OROPEZA Admit Date: 11/07/24 MR#: [id number] Address1: [address] [place] [address] Acct ID:[id number] Address2: Date: 1985 [facility] Zip: [place] [address] Age: 39 Location: ED Sex: M Room/Bed: Att Phy: Diagnosis: SEVERE BACK PAIN Sherry Phy: PCP,NO Service Date: 11/07/24 [facility] Phy: Interpreting Phy: Lai Scott MD Admit Phy: Ordering Phy: Bere Kolb PA-C cc: ~ EXAM: MR lumbar spine wo/w con CLINICAL HISTORY: severe mid/low back pain,? abcesss TECHNIQUE: Multisequential and multiplanar images of the lumbar spine were submitted for review without and with contrast. COMPARISON: none FINDINGS: Ill defined peripheral enhancing multiloculated lesion seen in visualized back at lower thoracic and upper lumbar vertebral level in subcutaneous plane with significant perilesional inflammation. The conus terminates at approximately L1. Alignment of the lumbar spine is normal. Bone marrow signal is normal. No evidence of compression fracture. The visualized paravertebral soft tissues are unremarkable. No significant disc bulge/spinal canal stenosis/neural foraminal narrowing. IMPRESSION: 1. Ill defined peripheral enhancing multiloculated lesion seen in visualized back at lower thoracic and upper lumbar vertebral level in subcutaneous plane with significant perilesional inflammation--- Likely Abscess with extensive inflammatory changes in subcutaneous tissue. 2. No significant abnormality in lumbar spine. Electronically signed by Lai Scott 11-07-2024 06:01 AM Dictated: 11/07/24 0415 Transcribed: Consultation: A consultation was placed with the hospitalist. The case was discussed and diagnostics were reviewed. The patient was evaluated in the ER for further treatment. A consultation was placed with the surgery. The case was discussed. Patient will be evaluated by SOILA Malin. This appears to be extensive a subcutaneous back abscess with cellulitis with hyperglycemia who failed outpatient treatment. Patient's infection got much worse in less than 24 hours. Patient was started on broad-spectrum antibiotics and septic workup was initiated. Imaging was reviewed. His pain was managed. He is agreeable to treatment plan of admission. Medicine was consulted and the case was discussed. Patient will be admitted to the medical service. By the evaluation outlined above emergent etiologies such as necrotizing fasciitis, DVT, as well as others were deemed relatively unlikely. The pt informed about the findings as listed above. All questions were answered and pleased with the treatment. The chart was completed utilizing [employer] Speech voice recognition software. Grammatical errors, random word insertions, pronoun errors, and incomplete sentences are an occassional consequence of this system due to software limitations, ambient noise, and hardware issues. Any formal questions or concerns about the content, text, or information contained within the body of this dictation should be directly addressed to the physician assistant credit manager for clarification. Impression & Plan Cutaneous abscess of back excluding buttocks, Cellulitis of back, Acute hyperglycemia, Failure of outpatient treatment Discharge Plan Visit Data Chief Complaint: Back Injury/Pain Stated Complaint: SEVERE BACK PAIN ED Provider: Brooklynn Huizar ED Midlevel Provider: Bere Kolb Discharge Problem: Cutaneous abscess of back excluding buttocks, Cellulitis of back, Acute hyperglycemia, Failure of outpatient treatment Patient Disposition: Admitted As Inpatient Condition: Good Forms Stand Alone Forms: [facility] Prescriptions Prescriptions: No Action meloxicam 15 mg tablet 15 mg PO DAILY PRN (Reason: pain) Qty: 30 2RF Rx Instructions: Take with food metformin 500 mg tablet 500 mg PO DAILY Qty: 20 0RF sulfamethoxazole-trimethoprim [Bactrim DS] 800-160 mg tablet 1 tab PO Q12H Qty: 20 0RF cephalexin 500 mg capsule 500 mg PO Q6H 10 Days Qty: 40 0RF Referrals Referrals: PCP,NO [Primary Care Provider] -
[2024-11-07 04:05] LABS: Basophils # (auto) 0.03 K/uL (0.00-0.20); Basophils % (auto) 0.2 %; Eosinophils # (auto) 0.07 K/uL (0.00-0.50); Eosinophils % (auto) 0.5 %; Hemoglobin 13.2 g/dl (14.0-18.0); Immature Granulocytes # (auto) 0.08 K/uL (0.01-0.20); Immature Granulocytes % (auto) 0.5 %; Lymphocytes # (auto) 1.42 K/uL (1.20-3.40); Lymphocytes % (auto) 9.5 %; Mean Corpuscular Hemoglobin 27.9 pg (25.0-34.0); Mean Corpuscular Hgb Conc 33.8 g/dL (32.0-36.0); Mean Corpuscular Volume 82.5 fL (80.0-100.0); Mean Platelet Volume 10.9 fL (9.4-12.4); Monocytes # (auto) 1.36 K/uL (0.11-0.59); Monocytes % (auto) 9.1 %; Neutrophils # (auto) 12.02 K/uL (1.40-6.50); Neutrophils % (auto) 80.2 %; Platelet Count 255 K/uL (130-400); RDW Coefficient of Variation 11.5 % (11.5-14.5); RDW Standard Deviation 34.6 fL (36.4-46.3); Red Blood Count 4.73 M/uL (4.70-6.10); White Blood Count 14.98 K/ul (4.8-10.8)
[2024-11-07] MEDS: MoRPHine SULFATE 4 MG/ML 1 ML CARP\\VIAL IV SCH (04:08)
[2024-11-07] MEDS: SODIUM CHLORIDE 0.9% 1,000 ML IV SCH ×2 (04:10→09:20)
[2024-11-07 04:33] LABS: INR 1.1 (0.9-1.1); Partial Thromboplastin Ratio 1.2; Partial Thromboplastin Time 32 Seconds (21-31); Prothrombin Time 11.4 Seconds (9.0-12.0)
[2024-11-07 04:38] LABS: Albumin Level 3.5 gm/dl (3.4-5.0); BUN Creatinine Ratio 11.1 (10-20); Bilirubin Direct 0.2 mg/dl (0-0.2); Bilirubin,Total 0.7 mg/dl (0.2-1.0); C Reactive Protein 22.48 mg/dl (0-0.5); Calcium 8.8 mg/dl (8.6-10.3); Creatinine Clr Calc Pharmacy 109.7 ml/min; Magnesium 1.8 mg/dl (1.7-2.4); Potassium 3.4 mmol/L (3.5-5.1); Troponin I High Sensitivity 6.3 pg/ml (0-20)
--- NOTE | 2024-11-07 04:38 | XRay Report ---
EXAM: XR chest 1V portable CLINICAL HISTORY: Sepsis TECHNIQUE: An X-ray image of the chest is obtained in AP projection. COMPARISON: 05/14/2024 XR chest FINDINGS: Pulmonary Parenchyma: Prominent both chhaya with perihilar and basal accentuated bronchovascular markings and peribronchial wall thickening, suggesting lung congestion. No evidence of consolidation, collapse, or focal opacities. No pulmonary nodules are identified. No evidence of pleural effusion or pleural thickening. Heart and Mediastinum: Heart size and shape are normal. No mediastinal widening or masses. No hilar or mediastinal lymphadenopathy. Bony Thorax: Bony thorax appears intact without fractures or deformities. Soft Tissues: Soft tissues overlying the chest wall are unremarkable. IMPRESSION: 1. Prominent both chhaya with perihilar and basal accentuated bronchovascular markings and peribronchial wall thickening, suggesting lung congestion interval changes. 2. No acute cardiopulmonary abnormalities are identified. Electronically signed by Wilman Mendoza 11-07-2024 04:38 AM
[2024-11-07] MEDS: GADOBUTROL 65ML VIAL IV ONE (05:20)
[2024-11-07] MEDS ORDERED: PHARMACY GLYCEMIC MGMT CONSULT PRN (05:58)
[2024-11-07] MEDS ORDERED: DEXTROSE 50% 50 ML SYRINGE IV PRN (05:58)
[2024-11-07] MEDS ORDERED: GLUCOSE 40% GEL 15 GM TUBE PO PRN (05:58)
[2024-11-07] MEDS ORDERED: GLUCAGON FOR INJ 1 MG VIAL SQ PRN (05:58)
[2024-11-07] MEDS ORDERED: CARBOHYDRATES FOR HYPOGLYCEMIA PO PRN (05:58)
[2024-11-07] MEDS ORDERED: GLUCOSE 10 TAB/TUBE PO PRN (05:58)
--- NOTE | 2024-11-07 06:01 | Magnetic Resonance Report ---
EXAM: MR lumbar spine wo/w con CLINICAL HISTORY: severe mid/low back pain,? abcesss TECHNIQUE: Multisequential and multiplanar images of the lumbar spine were submitted for review without and with contrast. COMPARISON: none FINDINGS: Ill defined peripheral enhancing multiloculated lesion seen in visualized back at lower thoracic and upper lumbar vertebral level in subcutaneous plane with significant perilesional inflammation. The conus terminates at approximately L1. Alignment of the lumbar spine is normal. Bone marrow signal is normal. No evidence of compression fracture. The visualized paravertebral soft tissues are unremarkable. No significant disc bulge/spinal canal stenosis/neural foraminal narrowing. IMPRESSION: 1. Ill defined peripheral enhancing multiloculated lesion seen in visualized back at lower thoracic and upper lumbar vertebral level in subcutaneous plane with significant perilesional inflammation--- Likely Abscess with extensive inflammatory changes in subcutaneous tissue. 2. No significant abnormality in lumbar spine. Electronically signed by Lai Wyman 11-07-2024 06:01 AM
[2024-11-07 06:02] LABS: Appearance Urine Clear (Clear); Bilirubin Urine Negative (Negative); Blood Urine 1+ (Negative); Color Urine Yellow; Glucose Urine UA 3+ (Negative); Ketones Urine Negative (Negative); Leukocyte Esterase Urine Negative (Negative); Nitrite Urine Negative (Negative); Protein Urine Negative (Negative); Urobilinogen Urine Negative (Negative)
--- NOTE | 2024-11-07 06:08 | Magnetic Resonance Report ---
EXAM: MR thoracic spine wo/w con CLINICAL HISTORY: severe mid/low back pain,? abcesss TECHNIQUE: Multisequential and multiplanar images of the thoracic spine were submitted for review without and with contrast. COMPARISON: none FINDINGS: Ill defined peripheral enhancing multiloculated lesion seen in visualized back at lower thoracic vertebra level(aboiut T9 to T12 level) in subcutaneous plane with significant perilesional inflammation. The lesion measures about 3.1x4.5x12cm The cord is normal in caliber and signal. No abnormal bone marrow signal demonstrated throughout the thoracic spine to suggest a fracture. Alignment of the thoracic spine is normal. No disc bulge. No canal stenosis. No neuroforaminal narrowing. No evidence of compression fracture. IMPRESSION: 1. Ill defined peripheral enhancing multiloculated lesion seen in visualized back at lower thoracic vertebra level in subcutaneous plane with significant perilesional inflammation- likely Abscess. Electronically signed by Lai Wyman 11-07-2024 06:07 AM
[2024-11-07 06:10] LABS: Epithelial Cell Urine 0-2 /hpf (0-2)
[2024-11-07 06:12] LABS: Bacteria Urine None Seen (None Seen)
--- NOTE | 2024-11-07 06:15 | History & Physical Report ---
Date of Service November 07, 2024 Assessment & Plan (1) Cutaneous abscess of back excluding buttocks: Plan: 39-year-old male with past medical history significant for diabetes but not taking medications for last 2 years and patient says he also has history of hypertension but states it is under control and not taking medications, obesity comes because of severe back pain and found to have cellulitis of the lower mid back. Patient says he started having back pain last Wednesday and Wednesday he had temperature of 102.9 degrees. Patient was in the ER yesterday morning with back pain and found to have leukocytosis and CT abdomen pelvis was done which showed was consistent with a cellulitis of the lower back with no focal soft tissue abscess. Patient was discharged on Bactrim and Keflex. But the pain was not getting better. And as patient was not improving he came back. The pain is severe in the lower back and is radiating to the lower rib cage. Having ambulatory dysfunction because of pain. When the pain is severe he feels short of breath. Has headache. No sore throat or cough. Normal bowel and bladder movements. Hemodynamics are okay. Cutaneous abscess of back excluding buttocks Severe back pain MRI scan shows abscess in the subcutaneous plane with significant perilesional inflammation lower thoracic and upper lumbar spine. No significant abnormality in the spine. Received IV clinda and Zosyn and IV Vanco in the ER Will continue with Zosyn and Vanco N.p.o., IV fluids, pain control Surgical consult for further recommendations Close monitor Diabetes Hyperglycemia Not taking medications Lantus and sliding scale Glycemic pharmacy consult Will follow HbA1c goals Monitor blood sugars Obesity Counseling Hypertension Patient states under control and not taking medications Will monitor DVT prophylaxis SCDs for now Lovenox once procedures done Disposition Medical floor Full code. History of Present Illness Chief Complaint: Severe back pain, back cellulitis Primary Care Provider: NO PCP 39-year-old male with past medical history significant for diabetes but not ta destiny medications for last 2 years and patient says he also has history of hypertension but states it is under control and not taking medications, obesity comes because of severe back pain and found to have cellulitis of the lower mid back. Patient says he started having back pain last Wednesday and Wednesday he had temperature of 102.9 degrees. Patient was in the ER yesterday morning with back pain and found to have leukocytosis and CT abdomen pelvis was done which showed was consistent with a cellulitis of the lower back with no focal soft tissue abscess. Patient was discharged on Bactrim and Keflex. But the pain was not getting better. And as patient was not improving he came back. The pain is severe in the lower back and is radiating to the lower rib cage. Having ambulatory dysfunction because of pain. When the pain is severe he feels short of breath. Has headache. No sore throat or cough. Normal bowel and bladder movements. Hemodynamics are okay. Past medical history. As mentioned above Past surgical history. ACL and PCL of right knee. Social history. Quit smoking about 6 years ago. Prior to that smoked but not much. No alcohol use. Smokes pot and last was 4 months ago. Family history. Mother had type 1 diabetes. Allergies Allergy/AdvReac Type Severity Reaction Status Date / Time No Known Allergies Allergy Unverified 09/21/24 09:39 Home Medications Medication Instructions Recorded Confirmed Type meloxicam 15 mg tablet 15 mg PO DAILY PRN pain #30 tabs 09/21/24 09/21/24 Rx cephalexin 500 mg capsule 500 mg PO Q6H 10 days #40 caps 11/06/24 Rx metformin 500 mg tablet 500 mg PO DAILY #20 tabs 11/06/24 Rx sulfamethoxazole 800 1 tab PO Q12H #20 tabs 11/06/24 Rx mg-trimethoprim 160 mg tablet (Bactrim DS) Past Med/Surg History Problem List Cutaneous abscess of back excluding buttocks (Acute) Failure of outpatient treatment (Acute) Cellulitis of back (Acute) Acute hyperglycemia (Acute) Acute hyperglycemia (Acute) Back pain (Acute) Cellulitis (Acute) Chest pain Diabetes mellitus, new onset (Acute) Hypoxia Pain of left calf (Acute) Medical History Rhabdomyolysis DKA (diabetic ketoacidoses) DM type 2 (diabetes mellitus, type 2) Social History Smoking Status: Never smoker Preferred Language: Maori current occupational status: employed Feels Safe at Home: Yes Review of Systems Review of Systems: All systems reviewed & are unremarkable except as noted in HPI & below Physical Exam Physical Exam: General- Not in distress Head- atraumatic Eyes- PERRL. ENT- oropharynx clear Neck- supple, no JVD. Lungs- clear to auscultation no wheezing or crackles Heart- regular rate and rhythm; no murmur, no gallop. Abdomen- normal bowel sounds, soft, nontender, no distension Extremities- no pretibial edema, no erythema seen Neuro- alert, oriented PERRL, no facial palsy; no dysarthria; moves extremities, sensations intact lower extremity Skin: erythematous region seen in the back at lower thoracic and upper lumbar region,tender and indurated to palpation Results & Data Results & Data Vital Signs (Past 12 Hours) Vital Signs Temp Pulse Pulse Resp BP BP Pulse Ox 11/07/24 05:53 86 11/07/24 05:53 84 18 97 11/07/24 05:52 85 16 134/81 94 11/07/24 03:19 36.9 C 95 H 18 144/79 H 97 O2 Del Method 11/07/24 05:53 11/07/24 05:53 Room Air 11/07/24 05:52 Room Air 11/07/24 03:19 Room Air Diagnostic Findings Laboratory Results WBC 14.98 K/ul (4.8-10.8) H 11/07/24 03:34 RBC 4.73 M/uL (4.70-6.10) 11/07/24 03:34 Hgb 13.2 g/dl (14.0-18.0) L 11/07/24 03:34 Hct 39.0 % (42.0-52.0) L 11/07/24 03:34 MCV 82.5 fL (80.0-100.0) 11/07/24 03:34 MCH 27.9 pg (25.0-34.0) 11/07/24 03:34 MCHC 33.8 g/dL (32.0-36.0) 11/07/24 03:34 RDW Std Deviation 34.6 fL (36.4-46.3) L 11/07/24 03:34 RDW Coeff of Mel 11.5 % (11.5-14.5) 11/07/24 03:34 Plt Count 255 K/uL (130-400) 11/07/24 03:34 MPV 10.9 fL (9.4-12.4) 11/07/24 03:34 Immature Gran % (Auto) 0.5 % 11/07/24 03:34 Neut % (Auto) 80.2 % 11/07/24 03:34 Lymph % (Auto) 9.5 % 11/07/24 03:34 Weston % (Auto) 9.1 % 11/07/24 03:34 Eos % (Auto) 0.5 % 11/07/24 03:34 Baso % (Auto) 0.2 % 11/07/24 03:34 Neut # (Auto) 12.02 K/uL (1.40-6.50) H 11/07/24 03:34 Lymph # (Auto) 1.42 K/uL (1.20-3.40) 11/07/24 03:34 Weston # (Auto) 1.36 K/uL (0.11-0.59) H 11/07/24 03:34 Eos # (Auto) 0.07 K/uL (0.00-0.50) 11/07/24 03:34 Baso # (Auto) 0.03 K/uL (0.00-0.20) 11/07/24 03:34 Immature Gran # (Auto) 0.08 K/uL (0.01-0.20) 11/07/24 03:34 ESR 81 mm/hr (0-15) H 11/07/24 03:46 PT 11.4 Seconds (9.0-12.0) 11/07/24 03:34 INR 1.1 (0.9-1.1) 11/07/24 03:34 APTT 32 Seconds (21-31) H 11/07/24 03:34 PTT Ratio 1.2 11/07/24 03:34 Sodium 133 mmol/L (136-145) L 11/07/24 03:34 Potassium 3.4 mmol/L (3.5-5.1) L 11/07/24 03:34 Chloride 100 mmol/L (98-107) 11/07/24 03:34 Carbon Dioxide 25 mmol/L (21-32) 11/07/24 03:34 Anion Gap 8 (3-11) 11/07/24 03:34 BUN 12 mg/dl (6-23) 11/07/24 03:34 Creatinine 1.08 mg/dl (0.6-1.4) D 11/07/24 03:34 Est Cr Clr Drug Dosing 109.7 ml/min 11/07/24 03:34 eGFR 88.41 11/07/24 03:34 BUN/Creatinine Ratio 11.1 (10-20) 11/07/24 03:34 Glucose 347 mg/dl (70-99(Fasting)) H* 11/07/24 03:34 Lactate 1.5 mmol/L (0.4-2.0) 11/07/24 03:46 Calcium 8.8 mg/dl (8.6-10.3) 11/07/24 03:34 Magnesium 1.8 mg/dl (1.7-2.4) 11/07/24 03:34 Total Bilirubin 0.7 mg/dl (0.2-1.0) 11/07/24 03:34 Direct Bilirubin 0.2 mg/dl (0-0.2) 11/07/24 03:34 AST 11 U/L (13-39) L 11/07/24 03:34 ALT 7 U/L (7-52) 11/07/24 03:34 Alkaline Phosphatase 77 U/L (34-104) 11/07/24 03:34 Total Creatine Kinase 76 U/L (30-223) 11/07/24 03:34 Troponin I High Sens 6.3 pg/ml (0-20) 11/07/24 03:34 C-Reactive Protein 22.48 mg/dl (0-0.5) H 11/07/24 03:34 Total Protein 7.0 gm/dl (6.0-8.3) 11/07/24 03:34 Albumin 3.5 gm/dl (3.4-5.0) 11/07/24 03:34 Procalcitonin 0.10 ng/ml (0-0.5) 11/07/24 03:34 Urine Color Yellow 11/07/24 05:54 Urine Appearance Clear (Clear) 11/07/24 05:54 Urine pH 6.0 (4.5-7.5) 11/07/24 05:54 Ur Specific [place] 1.010 (1.000-1.030) 11/07/24 05:54 Urine Protein Negative (Negative) 11/07/24 05:54 Urine Glucose (UA) 3+ (Negative) H 11/07/24 05:54 Urine Ketones Negative (Negative) 11/07/24 05:54 Urine Blood 1+ (Negative) H 11/07/24 05:54 Urine Nitrite Negative (Negative) 11/07/24 05:54 Urine Bilirubin Negative (Negative) 11/07/24 05:54 Urine Urobilinogen Negative (Negative) 11/07/24 05:54 Ur Leukocyte Esterase Negative (Negative) 11/07/24 05:54 Urine RBC 11-20 /hpf (0-2) H 11/07/24 05:54 Urine WBC 6-10 /hpf (0-5) H 11/07/24 05:54 Ur Epithelial Cells 0-2 /hpf (0-2) 11/07/24 05:54 Urine Bacteria None Seen (None Seen) 11/07/24 05:54 Impressions Chest X-Ray 11/07/24 03:34 EXAM: XR chest 1V portable CLINICAL HISTORY: Sepsis TECHNIQUE: An X-ray image of the chest is obtained in AP projection. COMPARISON: 05/14/2024 XR chest FINDINGS: Pulmonary Parenchyma: Prominent both chhaya with perihilar and basal accentuated bronchovascular markings and peribronchial wall thickening, suggesting lung congestion. No evidence of consolidation, collapse, or focal opacities. No pulmonary nodules are identified. No evidence of pleural effusion or pleural thickening. Heart and Mediastinum: Heart size and shape are normal. No mediastinal widening or masses. No hilar or mediastinal lymphadenopathy. Bony Thorax: Bony thorax appears intact without fractures or deformities. Soft Tissues: Soft tissues overlying the chest wall are unremarkable. IMPRESSION: 1. Prominent both chhaya with perihilar and basal accentuated bronchovascular markings and peribronchial wall thickening, suggesting lung congestion interval changes. 2. No acute cardiopulmonary abnormalities are identified. Electronically signed by Wilman Mendoza 11-07-2024 04:38 AM Lumbar Spine MRI 11/07/24 03:34 EXAM: MR lumbar spine wo/w con CLINICAL HISTORY: severe mid/low back pain,? abcesss TECHNIQUE: Multisequential and multiplanar images of the lumbar spine were submitted for review without and with contrast. COMPARISON: none FINDINGS: Ill defined peripheral enhancing multiloculated lesion seen in visualized back at lower thoracic and upper lumbar vertebral level in subcutaneous plane with significant perilesional inflammation. The conus terminates at approximately L1. Alignment of the lumbar spine is normal. Bone marrow signal is normal. No evidence of compression fracture. The visualized paravertebral soft tissues are unremarkable. No significant disc bulge/spinal canal stenosis/neural foraminal narrowing. IMPRESSION: 1. Ill defined peripheral enhancing multiloculated lesion seen in visualized back at lower thoracic and upper lumbar vertebral level in subcutaneous plane with significant perilesional inflammation--- Likely Abscess with extensive inflammatory changes in subcutaneous tissue. 2. No significant abnormality in lumbar spine. Electronically signed by Lai Wyman 11-07-2024 06:01 AM Thoracic Spine MRI 11/07/24 03:34 EXAM: MR thoracic spine wo/w con CLINICAL HISTORY: severe mid/low back pain,? abcesss TECHNIQUE: Multisequential and multiplanar images of the thoracic spine were submitted for review without and with contrast. COMPARISON: none FINDINGS: Ill defined peripheral enhancing multiloculated lesion seen in visualized back at lower thoracic vertebra level(aboiut T9 to T12 level) in subcutaneous plane with significant perilesional inflammation. The lesion measures about 3.1x4.5x12cm The cord is normal in caliber and signal. No abnormal bone marrow signal demonstrated throughout the thoracic spine to suggest a fracture. Alignment of the thoracic spine is normal. No disc bulge. No canal stenosis. No neuroforaminal narrowing. No evidence of compression fracture. IMPRESSION: 1. Ill defined peripheral enhancing multiloculated lesion seen in visualized back at lower thoracic vertebra level in subcutaneous plane with significant perilesional inflammation- likely Abscess. Electronically signed by Lai Wyman 11-07-2024 06:07 AM ECG Additional Comments: ECG. Normal sinus rhythm rate of 89. Nonspecific T wave abnormalities. Code Status & VTE Plan VTE Prophylaxis Plan VTE Prophylaxis will be ordered: Yes
[2024-11-07] MEDS: CLINDAMYCIN/D5W 600 MG/50 ML BAG IV ONE (06:17)
[2024-11-07] MEDS: ONDANSETRON INJ 2 MG/ML 2 ML VIAL IV STA (06:18)
[2024-11-07 06:23] LABS: iSTAT Hemoglobin 13.3 g/dl (14.0-18.0); iSTAT Ionized Calcium 1.16 mmol/l (1.12-1.32); iSTAT Potassium 4.7 mmol/L (3.3-5.0)
[2024-11-07] MEDS ORDERED: MoRPHine SULFATE 4 MG/ML 1 ML CARP\\VIAL IV PRN (06:29)
--- NOTE | 2024-11-07 06:34 | Surgery Consultation ---
Date of Consultation November 07, 2024 Assessment & Plan (1) Cutaneous abscess of back excluding buttocks: Patient is being admitted on the hospitalist. From a surgical perspective we recommend the following: Appears as though the patient has subcutaneous abscess on his back that will require incision and drainage Patient be kept n.p.o. for the present time -Patient has received broad-spectrum antibiotics in the form of Zosyn, clindamycin, and vancomycin. Appropriate cultures have been sent and antibiotic should be continued and can be tailored based on culture results Patient is tentatively scheduled for incision and drainage of this abscess by Dr. Colin Perry upon availability of the operating room this morning Additional recommendations to be forthcoming based on his clinical course as unfolds as above. discussed risks/options. pt agreeable. will proceed today with Incision/drainage of back abcess History of Present Illness Reason for Consultation: Subcutaneous back abscess History of Present Illness This is a 39-year-old male who presented to the emergency department secondary to back pain. The patient says that he felt as though he had a scab on his back over the past several days. 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 At first he felt as though he had strained this back but then he developed a painful area in his mid back so he presented to the emergency department on 11/06/2024. During this emergency department visit the patient had a CT scan of his abdomen pelvis which showed findings consistent with cellulitis of the lower back with no focal soft tissue abnormality suggestive of abscess seen. Labs at that time included a CBC will white blood cell count was elevated 14.2. Hemoglobin was normal and his hematocrit was 41.4. Platelet count was 248,000. Chemistry profile at that time showed sodium of 130 with a potassium that was normal. BUN and creatinine were both normal. The treating emergency room felt the patient merely has cellulitis of his lower thoracic back region. He was given 2 g of intravenous Rocephin and discharged on oral Bactrim. He was instructed to follow-up with his primary care physician. Of note, the patient reports he is a type II diabetic. The patient returns to the emergency department as he noted worsening pain in the same region of his back. He says he felt as though he had subjective fever and chills and he reported some generalized weakness. He did not report any nausea or vomiting. He does report that he is a type II diabetic. He also notes that he does not use intravenous drug use. Since arrival to the emergency department at this time he has had a chest x-ray that showed no evidence of pneumonia. He had an MRI of the lumbar spine that showed a peripheral enhancing multiloculated lesion in the lower thoracic and upper lumbar vertebral region in the subcutaneous tissuethe interpreting radiologist felt this was likely an abscess in the subcutaneous tissue. He also underwent a thoracic spine MRI with similar findings. Labs at this time include CBC were white blood cell count remains elevated 14.9. Hemoglobin and hematocrit are 13.2 and 39.0. Platelet count is normal. Coagulation studies showed an INR of 1.1 and a PTT of 32. Chemistry profile showed sodium is 133 with a potassium of 3.4. BUN and creatinine are both normal. Lactic acid level is not elevated at 1.5. Urinalysis shows 6-10 white blood cells per high-power field was otherwise not indicative of infection. At the time of my interview the patient was resting comfortably in bed and was in no distress Allergies Allergy/AdvReac Type Severity Reaction Status Date / Time No Known Allergies Allergy Unverified 09/21/24 09:39 Home Medications Medication Instructions Recorded Confirmed Type cephalexin 500 mg capsule 500 mg PO Q6H 10 days #40 caps 11/06/24 11/07/24 Rx metformin 500 mg tablet 500 mg PO DAILY #20 tabs 11/06/24 11/07/24 Rx sulfamethoxazole 800 1 tab PO Q12H #20 tabs 11/06/24 11/07/24 Rx mg-trimethoprim 160 mg tablet (Bactrim DS) meloxicam 15 mg tablet 15 mg PO UD PRN pain 11/07/24 11/07/24 History Patient History Medical History (Updated 11/07/24 @ 08:45 by Antonio Garcia MD) Hypertension Rhabdomyolysis DKA (diabetic ketoacidoses) DM type 2 (diabetes mellitus, type 2) Surgical History (Updated 11/07/24 @ 08:43 by Antonio Garcia MD) History of repair of anterior cruciate ligament of right knee Social History Smoking Status: Never smoker Preferred Language: Mohawk current occupational status: employed Feels Safe at Home: Yes Review of Systems Review of Systems: All systems reviewed & are unremarkable except as noted in HPI & below Physical Exam Physical Exam: The patient was able to logroll independently in the bed in the emergency department. I examined his back. In the midline in the lower thoracic/upper lumbar region the patient had a large area of indurated/fluctuant tissue that was somewhat warm and painful with palpation. There did appear to be a small scab in the central area of this region but there were no open areas or areas of drainage. There is no crepitus noted in the soft tissue. Constitutional: WD/WN, vitals as above Eyes: no conjunctival abnormality ENMT: Ears: no hearing impairment and no external ear abnormality Mouth: no oropharynx abnormality Neck: trachea midline Respiratory: normal respiratory effort; no respiratory distress and no labored breathing Cardiovascular: Rate/Rhythm: regular rate and regular rhythm Gastrointestinal (Abdomen): Abdomen is soft without distention. There is no rebound tenderness, guarding, or pain with palpation Musculoskeletal: No calf tenderness Skin: See above description Neurologic: The patient is able to logroll independently in bed. 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 Patient is also dorsiflex and plantarflex his feet equally with 5+ strength in the lower extremities bilaterally. No focal deficits are noted. The patient is noted to be alert and oriented x 3 without noted focal deficits. Psychiatric: A+Ox3, euthymic affect Results & Data Vital Signs (Past 12 Hours) Vital Signs Temp Pulse Pulse Resp BP BP Pulse Ox 11/07/24 05:53 86 11/07/24 05:53 84 18 97 11/07/24 05:52 85 16 134/81 94 11/07/24 03:19 36.9 C 95 H 18 144/79 H 97 O2 Del Method 11/07/24 05:53 11/07/24 05:53 Room Air 11/07/24 05:52 Room Air 11/07/24 03:19 Room Air PG Care Time/CCT Total # of Minutes Spent Total Time Spent with Patient: Total time spent is greater than 50% in coordination of care (as documented) at patient's floor/unit and/or counseling patient: Coding Level of Care Code 88306 IN/OBS CONSULT LVL 5,80M Diagnoses Cutaneous abscess of back excluding buttocks L02.212
[2024-11-07] MEDS: VANCOMYCIN HCL 2,250 MG in SODIUM CHLORIDE 0.9% 500 ML IV ONE (06:43)
[2024-11-07] MEDS: PIPERACILLIN/TAZOBACTAM 4.5 GM/100 ML BAG IV ONE (06:48)
[2024-11-07 06:53] LABS: Base Excess VBG -0.7 mEq/L; HCO3 VBG 23 mmol/L; Oxygen Saturation VBG 93.9 %; PCO2 VBG 36 mmHg (38-50); PO2 VBG 66 mmHg; pH VBG 7.42 (7.36-7.41)
[2024-11-07] MEDS: MoRPHine SULFATE 4 MG/ML 1 ML CARP\\VIAL IV STA (07:21)
[2024-11-07] MEDS ORDERED: INSULIN ASPART PER UNIT CHARGE SC SCH (07:30)
[2024-11-07] MEDS: PIPERACILLIN/TAZO 4.5 GM/D5W 100ML IV ONE (07:47)
[2024-11-07] MEDS: INSULIN ASPART PER UNIT CHARGE SC SCH ×2 (07:56→17:19)
--- NOTE | 2024-11-07 08:42 | Anesthesiology Consultation ---
Date of Service November 07, 2024 Assessment & Plan (1) Encounter for pre-operative examination: Chart Review Chart Review: Acceptable Risk for Surgery History Surgery Operation Date: 11/07/24 07:00 Proposed Procedures p Incision and Drainage Back Abscess - Yaniv Perry DO Height/Weight Height: 5 ft 8 in Weight: 112.8 kg Allergies Allergy/AdvReac Type Severity Reaction Status Date / Time No Known Allergies Allergy Unverified 09/21/24 09:39 Medications Home Medications Medication Instructions Recorded Confirmed Last Taken cephalexin 500 mg capsule 500 mg PO Q6H 10 days #40 caps 11/06/24 11/07/24 Unknown metformin 500 mg tablet 500 mg PO DAILY #20 tabs 11/06/24 11/07/24 Unknown sulfamethoxazole 800 1 tab PO Q12H #20 tabs 11/06/24 11/07/24 Unknown mg-trimethoprim 160 mg tablet (Bactrim DS) meloxicam 15 mg tablet 15 mg PO UD PRN pain 11/07/24 11/07/24 Unknown Active Medications Generic Name Dose Route Start Last Admin Trade Name Freq PRN Reason Stop Dose Admin Insulin Aspart 0 units 11/07/24 06:16 11/07/24 07:56 Insulin Aspart Per Unit Charge SC 12/07/24 06:15 1,000 units Q6 JAK Administration Morphine Sulfate 4 mg 11/07/24 03:45 11/07/24 08:03 Morphine Sulfate 4 Mg/Ml 1 Ml Carp\Vial IV 11/21/24 03:44 Not Given Q15M JAK Past Medical History Medical History (Updated 11/07/24 @ 08:45 by Antonio Garcia MD) Hypertension Rhabdomyolysis DKA (diabetic ketoacidoses) DM type 2 (diabetes mellitus, type 2) Past Surgical History Surgical History (Updated 11/07/24 @ 08:43 by Antonio Garcia MD) History of repair of anterior cruciate ligament of right knee Social History Smoking Status: Never smoker Physical Exam Vital Signs Last Vital Signs Temp 36.9 C 11/07/24 03:19 Pulse 77 11/07/24 08:30 Resp 18 11/07/24 08:30 BP 116/60 11/07/24 08:30 Pulse Ox 93 11/07/24 08:30 O2 Del Method Room Air 11/07/24 08:30 Testing Laboratory Results 11/07/24 03:34 11/07/24 03:34 PT 11.4 Seconds (9.0-12.0) 11/07/24 03:34 INR 1.1 (0.9-1.1) 11/07/24 03:34 APTT 32 Seconds (21-31) H 11/07/24 03:34 Urine Color Yellow 11/07/24 05:54 Urine Appearance Clear (Clear) 11/07/24 05:54 Urine pH 6.0 (4.5-7.5) 11/07/24 05:54 Ur Specific [place] 1.010 (1.000-1.030) 11/07/24 05:54 Urine Protein Negative (Negative) 11/07/24 05:54 Urine Glucose (UA) 3+ (Negative) H 11/07/24 05:54 Urine Ketones Negative (Negative) 11/07/24 05:54 Urine Nitrite Negative (Negative) 11/07/24 05:54 Ur Leukocyte Esterase Negative (Negative) 11/07/24 05:54 Urine RBC 11-20 /hpf (0-2) H 11/07/24 05:54 Urine WBC 6-10 /hpf (0-5) H 11/07/24 05:54 Ur Epithelial Cells 0-2 /hpf (0-2) 11/07/24 05:54 11/07/24 11/07/24 07:24 06:10 POC Glucose 261 H POC Glucose (other) 134 H Electrocardiogram Date: 11/07/24 Findings: + NSR @ (89) and + NSST changes Chest X-Ray Date: 11/07/24 Findings: + NAD
[2024-11-07] MEDS ORDERED: HYDROmorphone INJ 0.5 MG/0.5 ML SYR IV PRN ×2 (08:59)
[2024-11-07] MEDS ORDERED: ONDANSETRON INJ 2 MG/ML 2 ML VIAL IV PRN (08:59)
[2024-11-07] MEDS ORDERED: LANTUS PER UNIT CHARGE SQ SCH (09:00)
--- NOTE | 2024-11-07 10:01 | Pharmacy Report ---
Pharmacy Glycemic Short Note 2 - Date of Service November 07, 2024 - Glycemic Short BSG Results (Last 24 hours): 11/07/24 11/07/24 11/07/24 03:34 06:10 07:24 Glucose 347 H* POC Glucose 261 H POC Glucose (other) 134 H OUTPATIENT ANTIDIABETIC REGIMEN: * metformin 500mg po daily (per H&P patient hasn't been taking) HbA1c to be drawn 11/08 ASSESSMENT: * 39 year old male admitted today for cutaneous abscess of the back. Patient is a type 2 diabetic who reportedly has not been taking medications for the last two years. Pharmacy has been consulted for glycemic management while he is admitted. * BSG on admit was 134mg/dL and then jose eduardo to 261mg/dL. A weight based bolus insulin regimen with a stress between 1 and 2 was started. Since patient is NPO, will not start basal insulin at this point. If BSG is still elevated once a diet is started, will consider adding Lantus. PLAN FOR INPATIENT GLYCEMIC CONTROL: * Hold outpatient oral diabetes medications * Basal insulin * hold for now * Bolus insulin * NovoLog per scale ACHS or Q6hrs while NPO * Goal Range: Low 120 mg/dL - High 150 mg/dL * Correction Factor: 30 mg/dL/unit * Nutritional / Prandial insulin per carb ratio of 1 unit per 15 grams CHO consumed
[2024-11-07 10:08] LABS: Basophils # (auto) 0.01 K/uL (0.00-0.20); Basophils % (auto) 0.1 %; Eosinophils # (auto) 0.12 K/uL (0.00-0.50); Hematocrit (blood only) 37.8 % (42.0-52.0); Hemoglobin 12.8 g/dl (14.0-18.0); Immature Granulocytes # (auto) 0.05 K/uL (0.01-0.20); Immature Granulocytes % (auto) 0.4 %; Lymphocytes # (auto) 1.77 K/uL (1.20-3.40); Lymphocytes % (auto) 14.8 %; Mean Corpuscular Hemoglobin 28.6 pg (25.0-34.0); Mean Corpuscular Hgb Conc 33.9 g/dL (32.0-36.0); Mean Corpuscular Volume 84.6 fL (80.0-100.0); Mean Platelet Volume 10.5 fL (9.4-12.4); Monocytes # (auto) 1.16 K/uL (0.11-0.59); Monocytes % (auto) 9.7 %; Neutrophils # (auto) 8.83 K/uL (1.40-6.50); Platelet Count 239 K/uL (130-400); RDW Coefficient of Variation 11.6 % (11.5-14.5); RDW Standard Deviation 35.7 fL (36.4-46.3); Red Blood Count 4.47 M/uL (4.70-6.10); White Blood Count 11.94 K/ul (4.8-10.8)
[2024-11-07] MEDS ORDERED: HYDROmorphone INJ 1 MG/ML SYRINGE ONE ×2 (10:24→11:23)
[2024-11-07] MEDS ORDERED: LIDOCAINE 2% 2 ML VIAL/AMP(20MG/ML) INFIL ONE (10:24)
[2024-11-07] MEDS ORDERED: PROPOFOL IV EMULSION 10 MG/ML 20 ML VIAL IV ONE (10:24)
[2024-11-07] MEDS ORDERED: ONDANSETRON INJ 2 MG/ML 2 ML VIAL ONE (10:24)
[2024-11-07 10:26] LABS: Calcium 8.2 mg/dl (8.6-10.3); Magnesium 1.9 mg/dl (1.7-2.4); Potassium 3.3 mmol/L (3.5-5.1)
[2024-11-07 10:32] LABS: BUN Creatinine Ratio 15.9 (10-20); Creatinine Clr Calc Pharmacy 171.7 ml/min
[2024-11-07] MEDS ORDERED: ATROPINE SULFATE 0.1 MG/ML 10ML SYR IV PRN (10:38)
[2024-11-07] MEDS ORDERED: fentaNYL citrate PF 100 MCG/2 ML VIAL IV PRN (10:38)
[2024-11-07] MEDS ORDERED: KETOROLAC 30 MG/ML VIAL IV PRN (10:38)
[2024-11-07] MEDS ORDERED: PROMETHAZINE HCL 6.25 MG in SODIUM CHLORIDE 0.9% 50 ML IV PRN (10:38)
[2024-11-07] MEDS ORDERED: MIDAZOLAM HCL 1 MG/ML 2ML VIAL ONE (10:48)
[2024-11-07] MEDS ORDERED: DexMEDEtomidine HCL IV 100 MCG/ML VIAL IV ONE (10:49)
[2024-11-07] MEDS ORDERED: GLYCOPYRROLATE 0.2 MG/ML VIAL ONE (10:49)
[2024-11-07] MEDS ORDERED: PHENYLEPHRINE 100MCG/ML 5ML SYR ONE (11:21)
--- NOTE | 2024-11-07 11:43 | Electrocardiogram Report ---
Test Reason : Blood Pressure : */* mmHG Vent. Rate : 89 BPM Atrial Rate : 89 BPM P-R Int : 146 ms QRS Dur : 88 ms QT Int : 360 ms P-R-T Axes : 43 50 16 degrees QTcB Int : 438 ms Normal sinus rhythm Nonspecific T wave abnormality Abnormal ECG When compared with ECG of 03-May-2024 09:12, Vent. rate has increased by 31 bpm Confirmed by Isaias Campos ([id number]) on 11/07/2024 11:43:39 AM Referred By: REFERRED SELF Confirmed By: Isaias Campos
--- NOTE | 2024-11-07 12:20 | Anesthesiology Progress Note ---
Date of Service November 07, 2024 Anesthesia Post Procedure Vital Signs Vital Signs: Temp Pulse Pulse Resp BP BP BP 11/07/24 12:15 76 18 111/63 11/07/24 12:05 80 22 120/65 11/07/24 11:55 77 19 110/65 11/07/24 11:48 36.6 C 80 20 116/62 11/07/24 10:29 36.4 C L 76 16 98/47 L 11/07/24 10:00 67 18 95/78 L 11/07/24 09:35 69 16 11/07/24 08:32 78 24 116/60 11/07/24 08:30 77 18 116/60 11/07/24 08:03 81 24 100/61 11/07/24 07:00 81 14 108/72 11/07/24 06:42 78 13 116/76 11/07/24 05:53 86 11/07/24 05:53 84 18 11/07/24 05:52 85 16 134/81 11/07/24 03:19 36.9 C 95 H 18 144/79 H Pulse Ox O2 Del Method O2 Flow Rate 11/07/24 12:15 97 Nasal Cannula 2 11/07/24 12:05 99 Oxymask 5 11/07/24 11:55 98 Oxymask 5 11/07/24 11:48 100 Oxymask 12 11/07/24 10:29 97 Room Air 11/07/24 10:00 97 Room Air 11/07/24 09:35 96 Room Air 11/07/24 08:32 92 Room Air 11/07/24 08:30 93 Room Air 11/07/24 08:03 94 Room Air 11/07/24 07:00 92 Room Air 11/07/24 06:42 96 Room Air 11/07/24 05:53 11/07/24 05:53 97 Room Air 11/07/24 05:52 94 Room Air 11/07/24 03:19 97 Room Air Pain Intensity Back: Pain Intensity: 5 Transfer of Care Handoff Completed per policy Notes Mental Status: alert / awake / arousable Patient Amnestic to Procedure: Yes Nausea / Vomiting: adequately controlled Pain: adequately controlled Airway Patency, RR, SpO2: stable & adequate BP & HR: stable & adequate Hydration State: stable & adequate Anesthetic Complications: no major complications apparent
--- NOTE | 2024-11-07 13:00 | Pharmacy Report ---
Pharmacy PK ABX Note - Date of Service November 07, 2024 - Assessment and Plan Assessment 39 year old M receiving vancomycin and Zosyn for treatment of cutaneous abscess of the back. He was just in the ED 11/06/24 with back pain and found to have cellulitis of the lower back. Was discharged on Bactrim and Keflex. Pain was severe, so patient returned today. MRI showed abscess with significant perilesional inflammation of the lower thoracic and upper lumbar spine. * I&D of abscess scheduled for today * Pertinent microbiologic data includes: Blood cultures x 2 and back culture are pending Day # 1 of antimicrobial therapy. Plan Vancomycin * Loading dose: 2250 mg IV x 1 * Maintenance dose: 1750 mg IV every 12 hours * Regimen is predicted to achieve target AUC/SIA of 400-600 mg/L.hr * Random level ordered for: 11/09/24 Pharmacy will continue to follow and will adjust dose/frequency as necessary. Thank you. Pharmacy has transitioned to AUC monitoring for vancomycin. AUC/SIA is the preferred PK/PD target and is associated with decreased risk of nephrotoxicity compared to traditional trough targets.
[2024-11-07] MEDS ORDERED: oxyCODONE HCL IR 5 MG TAB (IMMEDIATE RELEASE) PO PRN (13:24)
[2024-11-07] MEDS ORDERED: MoRPHine SULFATE 2 MG/ML CARP IV PRN (13:24)
[2024-11-07] MEDS ORDERED: Nursing to Pharmacy Communication SCH (14:00)
--- NOTE | 2024-11-07 14:13 | Communication Note ---
Patient presents with complex abscess and cellulitis of lower back. Appreciate surgical assistance with source control, will cover with broad spectrum abx (vanc, zosyn) and f/u post op surgery recommendations. Follow up culture results as well. Date of Service: November 07, 2024
[2024-11-07] MEDS: PIPERACILLIN/TAZOBACTAM 4.5 GM/100 ML BAG IV SCH (15:32)
[2024-11-07] MEDS: VANCOMYCIN HCL 1,750 MG in SODIUM CHLORIDE 0.9% 500 ML IV SCH (16:25)
[2024-11-07] MEDS: oxyCODONE HCL IR 5 MG TAB (IMMEDIATE RELEASE) PO PRN (19:27)
[2024-11-07] MEDS: LANTUS PER UNIT CHARGE SC SCH (21:45)
[2024-11-07] MEDS: MoRPHine SULFATE 4 MG/ML 1 ML CARP\\VIAL IV PRN (22:57)
[2024-11-07 23:29] LABS: A calco-baum cmplx NotReported Not Detected (NotDetected); Bact fragilis Not Reported Not Detected (NotDetected); Blood Culture Id Panel See PCR Comment (NotDetected); C auris Not Reported Not Detected (NotDetected); Calbicans Not Reported Not Detected (NotDetected); Candida glabrata Not Reported Not Detected (NotDetected); Candida krusei Not Reported Not Detected (NotDetected); Cneoformans/gatti Not Reported Not Detected (NotDetected); Cparapsilosis Not Reported Not Detected (NotDetected); Ctropicalis Not Reported Not Detected (NotDetected); E cloacae compx Not Reported Not Detected (NotDetected); Efaecalis Not Reported Not Detected (NotDetected); Efaecium Not Reported Not Detected (NotDetected); Enterobacterales Not Reported Not Detected (NotDetected); Escherichia coli Not Reported Not Detected (NotDetected); H influenzae Not Reported Not Detected (NotDetected); K aerogenes Not Reported Not Detected (NotDetected); Koxytoca Not Reported Not Detected (NotDetected); Kpneumoniae grp Not Reported Not Detected (NotDetected); Lmonocyt Not Reported Not Detected (NotDetected); N meningitidis Not Reported Not Detected (NotDetected); P aeruginosa Not Reported Not Detected (NotDetected); Proteus spp Not Reported Not Detected (NotDetected); Salmonella spp Not Reported Not Detected (NotDetected); Staph lugdunensis Not Reported Not Detected (NotDetected); Staph spp. Not Reported DETECTED (NotDetected); Staphaureus Not Reported DETECTED (NotDetected); Staphepi Not Reported Not Detected (NotDetected); Staphylococcus spp. DETECTED (NotDetected); Stenmaltophilia Not Reported Not Detected (NotDetected); Strep agal(GrpB) Not Reported Not Detected (NotDetected); Strep pneum Not Reported Not Detected (NotDetected); Strep pyog (GrpA) Not Reported Not Detected (NotDetected); Strep spp Not Reported Not Detected (NotDetected); mecAC+MREJ Resistant Gene MRSA Not Detected (NotDetected)
[2024-11-08 06:50] LABS: Basophils # (auto) 0.03 K/uL (0.00-0.20); Basophils % (auto) 0.2 %; Eosinophils # (auto) 0.13 K/uL (0.00-0.50); Hemoglobin 11.6 g/dl (14.0-18.0); Immature Granulocytes # (auto) 0.05 K/uL (0.01-0.20); Immature Granulocytes % (auto) 0.4 %; Lymphocytes # (auto) 2.01 K/uL (1.20-3.40); Mean Corpuscular Hemoglobin 27.8 pg (25.0-34.0); Mean Corpuscular Hgb Conc 33.1 g/dL (32.0-36.0); Mean Corpuscular Volume 83.9 fL (80.0-100.0); Mean Platelet Volume 10.5 fL (9.4-12.4); Monocytes # (auto) 1.18 K/uL (0.11-0.59); Monocytes % (auto) 9.4 %; Neutrophils # (auto) 9.15 K/uL (1.40-6.50); Platelet Count 260 K/uL (130-400); RDW Coefficient of Variation 11.7 % (11.5-14.5); RDW Standard Deviation 35.5 fL (36.4-46.3); Red Blood Count 4.17 M/uL (4.70-6.10); White Blood Count 12.55 K/ul (4.8-10.8)
[2024-11-08 07:41] LABS: Estimated Average Glucose 358 mg/dl; Hemoglobin A1C 14.1 % (4.5-5.6)
[2024-11-08 07:43] LABS: Creatinine Clr Calc Pharmacy 191.1 ml/min
--- NOTE | 2024-11-08 10:14 | Surgery Progress Note ---
Date of Service November 08, 2024 Assessment & Plan (1) Cutaneous abscess of back excluding buttocks: Plan: POD#1 I&D of back abscess WBC 12 (11). He is afebrile OR cultures growing staph aureus, ID has also been consulted as blood cultures also returning + staph aureus Abx per ID and guidance appreciate Continue daily packing changes with 1/4" inch plain nu guaze, cover with dry 4x4 gauze and medipore tape Believes he will have some family to help assist him with this, he may also be interested in home health possibly Dispo is okay from our standpoint when cleared by medicine He may f/u in the office with dr. marquez in 1-2 weeks Admission and Anticipated Discharge Date Admission Date: November 07, 2024 Subjective Patient reports his back is feeling better. No other major complaints. Believes his mother may be coming into town to stay with him upon discharge for a little while. Physical Exam Physical Exam: awake/alert, sitting up in bed undergoing dressing change Skin: There was some bloody drainage on gauze dressing, packing removed, back wound less tender to palpation, some purulence noted on dressing but no active drainage noted in wound Results & Data Vital Signs (Past 12 Hours) Vital Signs Temp Pulse Resp BP BP Pulse Ox O2 Del Method 11/08/24 07:39 98.8 F 80 16 137/82 96 Room Air 11/08/24 07:32 98.1 F 79 16 152/88 H 97 Room Air 11/08/24 06:00 97.9 F 78 22 130/74 94 Room Air 11/08/24 02:10 98.4 F 76 20 130/72 94 Room Air 11/07/24 23:35 98.4 F 75 18 131/74 97 Room Air PG Care Time/CCT Total # of Minutes Spent Total Time Spent with Patient: Total time spent is greater than 50% in coordination of care (as documented) at patient's floor/unit and/or counseling patient: Coding Level of Care Code 92459 Post Operative Follow-Up Diagnoses Cutaneous abscess of back excluding buttocks L02.212
--- NOTE | 2024-11-08 11:21 | Infectious Disease Consult ---
Date of Service November 08, 2024 Telehealth Information I performed this visit using a real-time telehealth connection between my location and the patients location ([facility]). After connecting through interactive tele-video, patient was identified by name and date of and/or wristband check.Patient (or authorized healthcare home office representative) was informed that this was a telemedicine visit and it was being conducted confidentially over secure lines. My office door was closed and no on e else was present in the room with me.Patient (or authorized healthcare home office representative) provided consent to proceed with the visit, expressed an understanding of privacy and security of the telemedicine visit, and gave permission to have a hospital home office representative in the room in order to assist with the visit and to conduct portions of the visit, as needed. I informed the patient (or authorized healthcare home office representative) that I reviewed their record and presented the opportunity for them to ask any questions regarding the visit today. The patient agreed to participate. Assessment & Plan (1) Cutaneous abscess of back excluding buttocks: Plan: s/p D&I with wound cultures growing staph aureus (2) MSSA bacteremia: Plan: Recommend repeating blood cultures to document clearance and obtaining a TTE Plan Recommend discontinuing zosyn and vancomycin and starting ancef and flagyl(pending finalization of his cultures for anaerobic coverage)Repeat blood cultures and obtain a TTE to assist in ruling out endocarditis .Thank you for allowing us to participate in the care of this patient ID will continue to follow History of Present Illness History of Present Illness 39 y/o M PMHx of diabetes and HTN ( not on medication)and obesity who presented with severe back pain and was found to have cellulitis of the lower mid back. Patient reported his back pain started 4 days ago and it was accompanied by a temperature of 102.9 degrees.In the ER he was found to have leukocytosis and CT abdomen pelvis was done which showed cellulitis of the lower back with no focal soft tissue abscess. Patient was discharged on Bactrim and Keflex.When his pain did not improve he returned to the ER and a MRI of his thoracic-lumbar region revealed a subcutaneous abscess to his back extending to his buttocks.He was admitted and evaluated by GS who recommended zosyn clindamycin and vancomycin and he is s/p D&I .His wound and blood cultures are growing staph aureus now on zosyn and vancomycin Allergies Allergy/AdvReac Type Severity Reaction Status Date / Time No Known Allergies Allergy Unverified 09/21/24 09:39 Home Medications Medication Instructions Recorded Confirmed Type cephalexin 500 mg capsule 500 mg PO Q6H 10 days #40 caps 11/06/24 11/07/24 Rx metformin 500 mg tablet 500 mg PO DAILY #20 tabs 11/06/24 11/07/24 Rx sulfamethoxazole 800 1 tab PO Q12H #20 tabs 11/06/24 11/07/24 Rx mg-trimethoprim 160 mg tablet (Bactrim DS) meloxicam 15 mg tablet 15 mg PO UD PRN pain 11/07/24 11/07/24 History Patient History Medical History (Updated 11/08/24 @ 13:20 by Sabas Guillen DO) Hypertension Rhabdomyolysis DKA (diabetic ketoacidoses) DM type 2 (diabetes mellitus, type 2) Surgical History (Updated 11/07/24 @ 08:43 by Antonio Garcia MD) History of repair of anterior cruciate ligament of right knee Social History Smoking Status: Never smoker Do You Dip or Chew Tobacco: No; Hx Alcohol Use: No Hx Substance Use: Yes Last Used Substance: Unknown Preferred Language: Citizen Of [place] Communication Ability: Effective Blower Blast Furnace Required: No Beliefs That Will Affect Care: None Current Living Situation: Alone current occupational status: employed Feels Safe at Home: Yes Assistive Devices: None Review of Systems Patient reports back to back and buttocks Physical Exam Awaker alert oriented in no respiratory distress Results & Data Vital Signs (Past 12 Hours) Vital Signs Temp Pulse Resp BP BP Pulse Ox O2 Del Method 11/08/24 07:39 37.1 C 80 16 137/82 96 Room Air 11/08/24 07:32 36.7 C 79 16 152/88 H 97 Room Air 11/08/24 06:00 36.6 C 78 22 130/74 94 Room Air 11/08/24 02:10 36.9 C 76 20 130/72 94 Room Air 11/07/24 23:35 36.9 C 75 18 131/74 97 Room Air Laboratory Results Gram Stain Final 11/07/24-1357 Gram Stain Result Many WBCs Seen Moderate Gram Positive Cocci Aero/Berna Cult Preliminary 11/08/24-09 Organism 1 Staphylococcus aureus Quantity Moderate Sens Sensitivities to Follow Blood Culture Aerobic Preliminary 11/08/24-1038 Organism 1 Staphylococcus aureus Sens Sensitivities to Follow Blood Culture PCR Panel If viewing in EMR, results available under LAB Serology tab. Phoned positive Blood Culture Gram Stain report to SHAHRIAR GEIGER on 11/08/24 at 0011 [place] [id number]. [place] [id number]. Blood Culture Anaerobic Preliminary 11/08/24-0800 No growth in Anaerobic bottle after 24 hours. Diagnostic Findings IMPRESSION: 1. Ill defined peripheral enhancing multiloculated lesion seen in visualized back at lower thoracic and upper lumbar vertebral level in subcutaneous plane with significant perilesional inflammation--- Likely Abscess with extensive inflammatory changes in subcutaneous tissue. 2. No significant abnormality in lumbar spine.
[2024-11-08] MEDS ORDERED: oxyCODONE HCL IR 5 MG TAB (IMMEDIATE RELEASE) PO PRN (13:17)
--- NOTE | 2024-11-08 13:22 | Hospitalist Progress Note ---
Date of Service November 08, 2024 Assessment & Plan (1) MSSA bacteremia: (2) Cutaneous abscess of back excluding buttocks: (3) DM type 2 (diabetes mellitus, type 2): (4) Obesity (BMI 30-39.9): Plan Patient 39-year-old gentleman presented with acute abscess of the back in the setting of uncontrolled diabetes status post I&D. Now with blood and urine cultures growing MSSA. Consult infectious disease Reviewed recommendations to transition to Ancef and Flagyl, DAMON to evaluate for endocarditis, surveillance blood cultures. Will make final antibiotic recommendations when cultures are finalized. Diabetes education patient will need insulin at discharge with hemoglobin A1c 14.1% Wound care as directed by surgery Admission and Anticipated Discharge Date Admission Date: November 07, 2024 Subjective Patient reports pain controlled. Feeling a bit better. Ambulating. Physical Exam Physical Exam: Constitutional: Alert, nontoxic HEENT: Mucous membranes moist. Lungs: Clear to auscultation, decreased, no wheezes rales or rhonchi CV: S1-S2, regular Abdomen: Soft, nontender, nondistended Extremities: No significant edema Neuro: No focal deficits Psych: Cooperative, normal mood Results & Data Results & Data Vital Signs (Past 12 Hours) Vital Signs Temp Pulse Resp BP BP Pulse Ox O2 Del Method 11/08/24 11:43 36.9 C 78 22 135/77 97 Room Air 11/08/24 07:39 37.1 C 80 16 137/82 96 Room Air 11/08/24 07:32 36.7 C 79 16 152/88 H 97 Room Air 11/08/24 06:00 36.6 C 78 22 130/74 94 Room Air 11/08/24 02:10 36.9 C 76 20 130/72 94 Room Air Diagnostic Findings Reviewed imaging, laboratory and diagnostic studies. Pertinent findings as below. Blood and wound culture growing MSSA Hemoglobin A1c 14.1 WBCs 12.5 Hemoglobin 11.6 trending down
[2024-11-08] MEDS: ceFAZolin 2000MG 2,000 MG/15 ML SYR IV SCH (14:32)
[2024-11-08] MEDS: metroNIDAZOLE 500 MG/100 ML BAG IV SCH (15:09)
[2024-11-08] MEDS: LANTUS PER UNIT CHARGE SC SCH (21:52)
[2024-11-09] MEDS ORDERED: VANCOMYCIN LEVEL ONE (04:30)
[2024-11-09] MEDS: ACETAMINOPHEN 325 MG TAB PO PRN (06:03)
[2024-11-09 08:09] LABS: Hematocrit (blood only) 34.6 % (42.0-52.0); Hemoglobin 11.6 g/dl (14.0-18.0); Mean Corpuscular Hgb Conc 33.5 g/dL (32.0-36.0); Mean Corpuscular Volume 83.6 fL (80.0-100.0); Mean Platelet Volume 10.4 fL (9.4-12.4); Platelet Count 285 K/uL (130-400); RDW Coefficient of Variation 11.6 % (11.5-14.5); RDW Standard Deviation 35.2 fL (36.4-46.3); Red Blood Count 4.14 M/uL (4.70-6.10); White Blood Count 8.68 K/ul (4.8-10.8)
[2024-11-09 08:27] LABS: Calcium 8.4 mg/dl (8.6-10.3); Potassium 3.3 mmol/L (3.5-5.1)
[2024-11-09 08:33] LABS: BUN Creatinine Ratio 12.9 (10-20); Creatinine Clr Calc Pharmacy 191.1 ml/min
--- NOTE | 2024-11-09 13:27 | Hospitalist Progress Note ---
Date of Service November 09, 2024 Assessment & Plan (1) MSSA bacteremia: (2) Cutaneous abscess of back excluding buttocks: (3) DM type 2 (diabetes mellitus, type 2): (4) Obesity (BMI 30-39.9): Plan Patient continues to improve from MSSA bacteremia from back abscess. Continue current antibiotics Replace potassium Follow surveillance blood cultures Echocardiogram shows no evidence of vegetation Await final recommendations from infectious disease for antibiotic and duration PICC consent obtained in anticipation of need for ongoing IV antibiotics Case management aware of potential need for IV antibiotics at home. Continue management of glucose with insulin, glucose fair control Follow laboratory studies Admission and Anticipated Discharge Date Admission Date: November 07, 2024 Subjective Patient offers no complaints. Nursing reports that wound is healing well. Physical Exam Physical Exam: Constitutional: Alert, nontoxic HEENT: Mucous membranes moist. Lungs: Clear to auscultation, decreased, no wheezes rales or rhonchi CV: S1-S2, regular Abdomen: Soft, nontender, nondistended Extremities: No significant edema Neuro: No focal deficits Psych: Cooperative, normal mood Results & Data Results & Data Vital Signs (Past 12 Hours) Vital Signs Temp Pulse Resp BP Pulse Ox O2 Del Method 11/09/24 07:30 36.8 C 69 20 142/78 H 98 Room Air Diagnostic Findings Reviewed imaging, laboratory and diagnostic studies. Pertinent findings as below. Surveillance blood cultures pending Hemoglobin 11.6 WBCs 8.6 Potassium 3.3 Creatinine 0.62 Glucose 167
[2024-11-09] MEDS: POTASSIUM CHLORIDE CRTAB 20 MEQ TABCR PO STA (14:29)
[2024-11-09] MEDS: POTASSIUM CHLORIDE CRTAB 20 MEQ TABCR PO ONE (20:41)
[2024-11-10 06:56] LABS: BUN Creatinine Ratio 11.4 (10-20); Calcium 8.7 mg/dl (8.6-10.3); Creatinine Clr Calc Pharmacy 169.2 ml/min; Potassium 3.7 mmol/L (3.5-5.1)
--- NOTE | 2024-11-10 10:29 | Pharmacy Report ---
Pharmacy Glycemic Short Note 2 - Date of Service November 10, 2024 - Glycemic Short BSG Results (Last 24 hours): 11/09/24 11/09/24 11/09/24 11:51 16:43 20:24 Glucose POC Glucose 171 H 159 H 116 H 11/10/24 11/10/24 05:53 07:36 Glucose 124 H POC Glucose 182 H OUTPATIENT ANTIDIABETIC REGIMEN: * metformin 500mg po daily (per H&P patient hasn't been taking) HbA1c to be drawn 11/08 ASSESSMENT: 11/10: * Patient received a total of 23 units of insulin yesterday, all were bolus. Mealtime BSGs were still above goal ([phone]/dL) * Fasting BSG was 182mg/dL this morning. Will add a small AM dose of Lantus and will continue the bolus insulin regimen without change. 11/07: * 39 year old male admitted today for cutaneous abscess of the back. Patient is a type 2 diabetic who reportedly has not been taking medications for the last two years. Pharmacy has been consulted for glycemic management while he is admitted. * BSG on admit was 134mg/dL and then jose eduardo to 261mg/dL. A weight based bolus insulin regimen with a stress between 1 and 2 was started. Since patient is NPO, will not start basal insulin at this point. If BSG is still elevated once a diet is started, will consider adding Lantus. PLAN FOR INPATIENT GLYCEMIC CONTROL: * Hold outpatient oral diabetes medications * Basal insulin * Lantus 5 units SQ QAM * Bolus insulin * NovoLog per scale ACHS or Q6hrs while NPO * Goal Range: Low 120 mg/dL - High 150 mg/dL * Correction Factor: 25 mg/dL/unit * Nutritional / Prandial insulin per carb ratio of 1 unit per 9 grams CHO consumed
--- NOTE | 2024-11-10 12:30 | Hospitalist Progress Note ---
Date of Service November 10, 2024 Assessment & Plan (1) MSSA bacteremia: (2) Cutaneous abscess of back excluding buttocks: (3) DM type 2 (diabetes mellitus, type 2): (4) Obesity (BMI 30-39.9): (5) Hypertension associated with diabetes: Plan Continue Ancef and Flagyl. Communication with infectious disease, recommending 2 weeks of IV antibiotics from date of sterile blood culture Anticipate PICC line placement today if cultures remain sterile at 48 hours Communication with case management, due to patient's lack of insurance will be difficult to get home IV antibiotics arranged and paid for until his medical assistance is approved. Patient made aware that anticipate he will be here in the hospital at least through the weekend and into the beginning of next week. Continue wound care as directed by surgery Continue monitor glucose and manage with insulin Patient's blood pressure noted to be trending higher over the last 24 to 36 hours. Suspect this is showing that his infection is improving and now needs intervention on hypertension. Will start lisinopril Continue to monitor laboratory studies intermittently Admission and Anticipated Discharge Date Admission Date: November 07, 2024 Subjective Patient doing well. Got shower this morning. No pain. Physical Exam Physical Exam: Constitutional: Alert, nontoxic HEENT: Mucous membranes moist. Lungs: Clear to auscultation, decreased, no wheezes rales or rhonchi CV: S1-S2, regular Abdomen: Soft, nontender, nondistended Extremities: No significant edema Neuro: No focal deficits Psych: Cooperative, normal mood Spine: Able to see incision on thoracolumbar spine. No surrounding redness, no surrounding warmth, appropriate healing. Results & Data Results & Data Vital Signs (Past 12 Hours) Vital Signs Temp Pulse Resp BP Pulse Ox O2 Del Method 11/10/24 07:11 36.6 C 63 18 151/81 H 99 Room Air Diagnostic Findings Reviewed imaging, laboratory and diagnostic studies. Pertinent findings as below. Electrolytes within normal range Creatinine 0.70 Glucose 124 Surveillance blood cultures no growth to date
[2024-11-10] MEDS: LANTUS PER UNIT CHARGE SC SCH (12:37)
[2024-11-10] MEDS: lisinopril 10 MG TAB PO SCH (13:09)
[2024-11-10] MEDS: POTASSIUM CHLORIDE CRTAB 20 MEQ TABCR PO STA (13:10)
[2024-11-10] MEDS ORDERED: metFORMIN HCL 500 MG TAB PO SCH (15:30)
[2024-11-10] MEDS: oxyCODONE HCL IR 5 MG TAB (IMMEDIATE RELEASE) PO PRN (22:13)
[2024-11-11] MEDS ORDERED: ALUMINUM/MAGNESIUM SUSP 30 ML UDC PO PRN (08:57)
[2024-11-11] MEDS ORDERED: SIMETHICONE 80 MG CHEW PO PRN (08:57)
[2024-11-11] MEDS ORDERED: oxyCODONE HCL IR 5 MG TAB (IMMEDIATE RELEASE) PO PRN (09:01)
[2024-11-11] MEDS: lisinopril 10 MG TAB PO ONE (10:03)
[2024-11-11] MEDS: FAMOTIDINE 20 MG TAB PO SCH (10:04)
--- NOTE | 2024-11-11 11:09 | Hospitalist Progress Note ---
Date of Service November 11, 2024 Assessment & Plan (1) MSSA bacteremia: (2) Cutaneous abscess of back excluding buttocks: (3) DM type 2 (diabetes mellitus, type 2): (4) Obesity (BMI 30-39.9): (5) Hypertension associated with diabetes: Plan Patient with MSSA bacteremia requiring IV antibiotics, continue current antibiotics through 11/22/2024 Patient with singular episode of emesis this morning, did receive oxycodone overnight he had not been taking this very much during hospitalization. This may be the cause of his emesis. Will continue to monitor. Start Motrin for pain, avoid 10 mg oxycodone. Add Pepcid for and some heartburn and gastritis Mylicon for feeling bloated and gaseous Continue to monitor glucose with insulin coverage Monitor labs in a.m. Admission and Anticipated Discharge Date Admission Date: November 07, 2024 Subjective Patient with a single episode of emesis this morning. Patient states she just really feels bloated and is a big gas bubble. He subsequently then ate his entire breakfast. A little bit of heartburn from the emesis. Physical Exam Physical Exam: Constitutional: Alert HEENT: Mucous membranes moist. Lungs: Clear to auscultation, decreased, no wheezes rales or rhonchi CV: S1-S2, regular Abdomen: Soft, nontender, nondistended Extremities: No significant edema Neuro: No focal deficits Psych: Cooperative, normal mood Results & Data Results & Data Vital Signs (Past 12 Hours) Vital Signs Temp Pulse Resp BP Pulse Ox O2 Del Method 11/11/24 07:06 36.6 C 59 L 16 171/100 H 99 Room Air Diagnostic Findings Glucose reviewed
[2024-11-12 06:45] LABS: Hematocrit (blood only) 37.3 % (42.0-52.0); Hemoglobin 12.4 g/dl (14.0-18.0); Mean Corpuscular Hemoglobin 27.6 pg (25.0-34.0); Mean Corpuscular Hgb Conc 33.2 g/dL (32.0-36.0); Mean Corpuscular Volume 82.9 fL (80.0-100.0); Platelet Count 391 K/uL (130-400); RDW Coefficient of Variation 11.9 % (11.5-14.5); RDW Standard Deviation 35.7 fL (36.4-46.3); White Blood Count 7.81 K/ul (4.8-10.8)
[2024-11-12 07:21] LABS: BUN Creatinine Ratio 12.5 (10-20); Calcium 8.6 mg/dl (8.6-10.3); Creatinine Clr Calc Pharmacy 148.1 ml/min; Magnesium 1.6 mg/dl (1.7-2.4); Potassium 3.7 mmol/L (3.5-5.1)
[2024-11-12] MEDS: lisinopril 20 MG TAB PO SCH (08:02)
--- NOTE | 2024-11-12 12:04 | Hospitalist Progress Note ---
Date of Service November 12, 2024 Assessment & Plan (1) MSSA bacteremia: (2) Cutaneous abscess of back excluding buttocks: (3) DM type 2 (diabetes mellitus, type 2): (4) Obesity (BMI 30-39.9): (5) Hypertension associated with diabetes: Plan Patient with MSSA bacteremia due to back abscess in the setting of uncontrolled diabetes. Continue IV cefazolin and Flagyl through 11/22/2024. PICC line in place Lisinopril dose increased yesterday, continue to monitor response Continue current diabetes management, will need insulin for discharge. Check with health educator for medical assistance insulin coverage Case management working with patient to get medical assistance established. Patient cannot afford [id number] home IV antibiotics. Anticipate patient may be here in the hospital to receive IV antibiotics until his insurance is activated and can be coordinated home or until he completes his treatment. Orally replace potassium and magnesium Admission and Anticipated Discharge Date Admission Date: November 07, 2024 Subjective Patient states he had no more emesis. No nausea. Bloating is improved. Physical Exam Physical Exam: Constitutional: Alert HEENT: Mucous membranes moist. Lungs: Clear to auscultation, decreased, no wheezes rales or rhonchi CV: S1-S2, regular Abdomen: Soft, nontender, nondistended Extremities: No significant edema Neuro: No focal deficits Psych: Cooperative, normal mood Surgical dressing dry and clean on back wound Results & Data Results & Data Vital Signs (Past 12 Hours) Vital Signs Temp Pulse Resp BP Pulse Ox O2 Del Method 11/12/24 07:27 36.7 C 73 16 143/86 H 97 Room Air Diagnostic Findings Reviewed imaging, laboratory and diagnostic studies. Pertinent findings as below. Potassium 3.7 Magnesium 1.6 WBCs 7.8 Hemoglobin 12.4 Glucose reviewed
[2024-11-12] MEDS: POTASSIUM CHLORIDE CRTAB 20 MEQ TABCR PO STA (12:17)
[2024-11-12] MEDS: MAGNESIUM OXIDE 400 MG TAB PO SCH (12:17)
[2024-11-13 07:07] LABS: BUN Creatinine Ratio 11.1 (10-20); Calcium 8.7 mg/dl (8.6-10.3); Creatinine Clr Calc Pharmacy 146.3 ml/min; Magnesium 1.6 mg/dl (1.7-2.4); Potassium 3.9 mmol/L (3.5-5.1)
--- NOTE | 2024-11-13 08:54 | Pharmacy Report ---
Pharmacy Glycemic Short Note 2 - Date of Service November 13, 2024 - Glycemic Short BSG Results (Last 24 hours): 11/12/24 11/12/24 11/12/24 11:30 16:31 20:37 Glucose POC Glucose 149 H 117 H 129 H 11/13/24 11/13/24 06:14 07:46 Glucose 124 H POC Glucose 130 H OUTPATIENT ANTIDIABETIC REGIMEN: * Metformin 500 mg po daily (per H&P patient hasn't been taking) * HbA1c: 14.1% (11/08/24) ASSESSMENT: 11/13: * Jose received 24 units of insulin yesterday, 5 of which was basal. BSGs were: [phone] mg/dL. * Fasting BSG this AM was 130 mg/dL. No change to basal insulin. * Good postprandial control yesterday and tolerating T2DM diet well. No changes to bolus regimen. Continues on Ancef and Flagyl. 11/10: * Patient received a total of 23 units of insulin yesterday, all were bolus. Mealtime BSGs were still above goal ([phone]/dL) * Fasting BSG was 182mg/dL this morning. Will add a small AM dose of Lantus and will continue the bolus insulin regimen without change. 11/07: * 39 year old male admitted today for cutaneous abscess of the back. Patient is a type 2 diabetic who reportedly has not been taking medications for the last two years. Pharmacy has been consulted for glycemic management while he is admitted. * BSG on admit was 134mg/dL and then jose eduardo to 261mg/dL. A weight based bolus insulin regimen with a stress between 1 and 2 was started. Since patient is NPO, will not start basal insulin at this point. If BSG is still elevated once a diet is started, will consider adding Lantus. PLAN FOR INPATIENT GLYCEMIC CONTROL: * Hold outpatient oral diabetes medications * Basal insulin * Lantus 5 units SC AM * Bolus insulin * NovoLog per scale ACHS or Q6hrs while NPO * Goal Range: Low 120 mg/dL - High 150 mg/dL * Correction Factor: 25 mg/dL/unit * Nutritional / Prandial insulin per carb ratio of 1 unit per 9 grams CHO consumed
--- NOTE | 2024-11-13 13:11 | Hospitalist Progress Note ---
Date of Service November 13, 2024 Assessment & Plan (1) MSSA bacteremia: Plan: Patient with MSSA bacteremia Back abscess in the setting of uncontrolled diabetes. Continue IV cefazolin and Flagyl through 11/22/2024. PICC line in place (2) Cutaneous abscess of back excluding buttocks: Plan: Status post incision and drainage of back abscess on 11/07/2024 Continue dressing as per instruction (3) DM type 2 (diabetes mellitus, type 2): Plan: Continue current diabetes management, will need insulin for discharge. Check with certified adaptive physical educator for medical assistance insulin coverage (4) Obesity (BMI 30-39.9): (5) Hypertension associated with diabetes: Plan: Lisinopril dose increased yesterday, continue to monitor response Plan Case management working with patient to get medical assistance established. Pat ient cannot afford [id number] home IV antibiotics. Anticipate patient may be here in the hospital to receive IV antibiotics until his insurance is activated and can be coordinated home or until he completes his treatment. DVT prophylaxis SQ Heparin Admission and Anticipated Discharge Date Admission Date: November 07, 2024 Subjective 11/13/2024 The patient was seen and examined in medical floor He has been doing much better without significant back pain and no radiation No fever and/or chills Review of Systems Review of Systems: All systems reviewed and are unremarkable except as noted below Physical Exam Physical Exam: Lying in bed without any acute distress Constitutional: well developed, well nourished, + ill appearing and + obese Eyes: PERRL, conjunctivae normal, anicteric sclerae ENMT: external ear and nose normal, oropharynx normal Neck: trachea midline, no thyromegaly Respiratory: no respiratory distress Auscultation: lungs clear to auscultation bilaterally Cardiovascular: Rate/Rhythm: regular rate and regular rhythm; not tachycardic Heart Sounds: normal S1 and normal S2; no murmur Extremities: no edema Gastrointestinal (Abdomen): Inspection/Auscultation: normal bowel sounds; abdomen not distended Percussion/Palpation: abdomen soft; abdomen nontender Musculoskeletal: No acute arthritis involving any of the joint Neurologic: normal touch/pain/proprioception and moves all extremities; no focal motor deficits Lymphatic: no cervical or axillary lymphadenopathy Results & Data Results & Data Vital Signs (Past 12 Hours) Vital Signs Temp Pulse Resp BP Pulse Ox O2 Del Method 11/13/24 07:54 36.8 C 66 18 143/89 H 98 Room Air Laboratory Results [facility] 11/13/24 06:14 Sodium 137 Potassium 3.9 Chloride 104 Carbon Dioxide 28 BUN 9 Creatinine 0.81 Glucose 124 H Calcium 8.7 Medications Administered Current Inpatient Medications Acetaminophen (Acetaminophen 325 Mg Tab) 650 mg PO Q4H PRN PRN Reason: pain/fever Stop: 12/07/24 08:58 Last Admin: 11/13/24 06:01 Dose: 650 mg Al Hydrox/Mg Hydrox/Simethicone (Aluminum/Magnesium Susp 30 Ml Udc) 30 ml PO Q6H PRN PRN Reason: Heartburn Stop: 12/11/24 08:56 Dextrose (Dextrose 50% 50 Ml Syringe) 25 - 50 ml IV UD PRN; Protocol PRN Reason: Hypoglycemia Protocol Stop: 12/07/24 05:57 Famotidine (Famotidine 20 Mg Tab) 20 mg PO BID JAK Stop: 12/11/24 08:59 Last Admin: 11/13/24 08:07 Dose: 20 mg Glucagon (Glucagon For Inj 1 Mg Vial) 1 mg SQ UD PRN; Protocol PRN Reason: Hypoglycemia Protocol Stop: 12/07/24 05:57 Glucose (Glucose 40% Gel 15 Gm Tube) 15 - 30 gm PO UD PRN; Protocol PRN Reason: Hypoglycemia Protocol Stop: 12/07/24 05:57 Glucose (Glucose 10 Tab/Tube) 4 - 8 tab PO UD PRN; Protocol PRN Reason: Hypoglycemia Protocol Stop: 12/07/24 05:57 Heparin Sodium (Beef Lung) (Heparin 10 Unit/Ml 5 Ml Flush) 5 ml FLUSH PRN PRN PRN Reason: Flush Stop: 12/10/24 19:02 Last Admin: 11/12/24 23:08 Dose: 5 ml Cefazolin Sodium (Ancef 2000mg) 2,000 mg in 15 mls @ 3.75 mls/min IV Q8H JAK Stop: 11/22/24 13:59 Last Admin: 11/13/24 05:29 Dose: 3.75 mls/min Metronidazole (Flagyl) 500 mg in 100 mls @ 100 mls/hr IV Q8H JAK; Protocol Stop: 11/22/24 13:59 Last Infusion: 11/13/24 06:58 Dose: Infused Ibuprofen (Ibuprofen 600 Mg Tab) 600 mg PO Q8H PRN PRN Reason: Pain Stop: 12/11/24 08:59 Insulin Aspart (Insulin Aspart Per Unit Charge) 0 units SC ACHS [facility] Stop: 12/07/24 16:29 Last Admin: 11/13/24 12:14 Dose: 3 units Insulin Glargine (Lantus Per Unit Charge) 5 units SC DAILY [facility] Stop: 12/10/24 10:29 Last Admin: 11/13/24 08:29 Dose: 5 units Lisinopril (Lisinopril 20 Mg Tab) 20 mg PO QAM [facility] Stop: 12/12/24 08:59 Last Admin: 11/13/24 08:08 Dose: 20 mg Magnesium Oxide (Magnesium Oxide 400 Mg Tab) 400 mg PO BID [facility] Stop: 12/12/24 11:59 Last Admin: 11/13/24 08:07 Dose: 400 mg Miscellaneous (Carbohydrates For Hypoglycemia ) 15 - 30 gm PO UD PRN PRN Reason: Hypoglycemia Protocol Stop: 12/07/24 05:57 Miscellaneous Information (Pharmacy Glycemic Mgmt Consult) 1 each N/A UD PRN PRN Reason: Consult Stop: 12/07/24 05:57 Ondansetron HCl (Ondansetron Inj 2 Mg/Ml 2 Ml Vial) 4 mg IV Q6H PRN PRN Reason: Nausea Stop: 12/07/24 08:58 Oxycodone HCl (Oxycodone Hcl Ir 5 Mg Tab (Immediate Release)) 5 mg PO Q3H PRN PRN Reason: Severe Pain (Scale 7, 8, 9,10) Stop: 11/21/24 13:23 Simethicone (Simethicone 80 Mg Chew) 80 mg PO Q6H PRN PRN Reason: Flatulence Stop: 12/11/24 08:56
[2024-11-13] MEDS: metroNIDAZOLE 500 MG TAB PO SCH (20:33)
[2024-11-13] MEDS: HEPARIN SOD 5,000 UNIT/0.5 ML VIAL SQ SCH (20:39)
--- NOTE | 2024-11-14 17:39 | Hospitalist Progress Note ---
Date of Service November 14, 2024 Assessment & Plan (1) MSSA bacteremia: Plan: Patient with MSSA bacteremia Back abscess in the setting of uncontrolled diabetes. Continue IV cefazolin and Flagyl through 11/22/2024. PICC line in place [place] papers have been signed for insurance coverage before discharge (2) Cutaneous abscess of back excluding buttocks: Plan: Status post incision and drainage of back abscess on 11/07/2024 Continue dressing as per instruction (3) DM type 2 (diabetes mellitus, type 2): Plan: Continue current diabetes management, will need insulin for discharge. Check with agricultural extension educator for medical assistance insulin coverage He used to use insulin before COVID outbreak He will need insulin on discharge (4) Obesity (BMI 30-39.9): (5) Hypertension associated with diabetes: Plan: Lisinopril dose increased yesterday, continue to monitor response Plan Case management working with patient to get medical assistance established. Patient cannot afford [id number] home IV antibiotics. Anticipate patient may be here in the hospital to receive IV antibiotics until his insurance is activated and can be coordinated home or until he completes his treatment. DVT prophylaxis SQ Heparin Admission and Anticipated Discharge Date Admission Date: November 07, 2024 Subjective 11/13/2024 The patient was seen and examined in medical floor He has been doing much better without significant back pain and no radiation No fever and/or chills 11/14/2024 The patient was seen and examined in medical floor in presence of the parents He has been stable without any significant symptoms No fever and/or chills and denies any significant pain at the back Review of Systems Review of Systems: All systems reviewed and are unremarkable except as noted below Physical Exam Physical Exam: Lying in bed without any acute distress Constitutional: well developed, well nourished, + ill appearing and + obese Eyes: PERRL, conjunctivae normal, anicteric sclerae ENMT: external ear and nose normal, oropharynx normal Neck: trachea midline, no thyromegaly Respiratory: no respiratory distress Auscultation: lungs clear to auscultation bilaterally Cardiovascular: Rate/Rhythm: regular rate and regular rhythm; not tachycardic Heart Sounds: normal S1 and normal S2; no murmur Extremities: no edema Gastrointestinal (Abdomen): Inspection/Auscultation: normal bowel sounds; abdomen not distended Percussion/Palpation: abdomen soft; abdomen nontender Neurologic: normal touch/pain/proprioception and moves all extremities; no focal motor deficits Lymphatic: no cervical or axillary lymphadenopathy Results & Data Results & Data Vital Signs (Past 12 Hours) Vital Signs Temp Pulse Resp BP Pulse Ox O2 Del Method 11/14/24 14:18 36.6 C 75 16 145/83 H 99 Room Air 11/14/24 07:00 36.4 C L 66 16 142/89 H 97 Room Air Medications Administered Current Inpatient Medications Acetaminophen (Acetaminophen 325 Mg Tab) 650 mg PO Q4H PRN PRN Reason: pain/fever Stop: 12/07/24 08:58 Last Admin: 11/14/24 04:38 Dose: 650 mg Al Hydrox/Mg Hydrox/Simethicone (Aluminum/Magnesium Susp 30 Ml Udc) 30 ml PO Q6H PRN PRN Reason: Heartburn Stop: 12/11/24 08:56 Dextrose (Dextrose 50% 50 Ml Syringe) 25 - 50 ml IV UD PRN; Protocol PRN Reason: Hypoglycemia Protocol Stop: 12/07/24 05:57 Famotidine (Famotidine 20 Mg Tab) 20 mg PO BID JAK Stop: 12/11/24 08:59 Last Admin: 11/14/24 08:28 Dose: 20 mg Glucagon (Glucagon For Inj 1 Mg Vial) 1 mg SQ UD PRN; Protocol PRN Reason: Hypoglycemia Protocol Stop: 12/07/24 05:57 Glucose (Glucose 40% Gel 15 Gm Tube) 15 - 30 gm PO UD PRN; Protocol PRN Reason: Hypoglycemia Protocol Stop: 12/07/24 05:57 Glucose (Glucose 10 Tab/Tube) 4 - 8 tab PO UD PRN; Protocol PRN Reason: Hypoglycemia Protocol Stop: 12/07/24 05:57 Heparin Sodium (Beef Lung) (Heparin 10 Unit/Ml 5 Ml Flush) 5 ml FLUSH PRN PRN PRN Reason: Flush Stop: 12/10/24 19:02 Last Admin: 11/12/24 23:08 Dose: 5 ml Heparin Sodium (Porcine) (Heparin Sod 5,000 Unit/0.5 Ml Vial) 5,000 units SQ Q12 JAK Stop: 12/13/24 20:59 Last Admin: 11/14/24 08:28 Dose: 5,000 units Cefazolin Sodium (Ancef 2000mg) 2,000 mg in 15 mls @ 3.75 mls/min IV Q8H [facility] Stop: 11/22/24 13:59 Last Admin: 11/14/24 15:26 Dose: 3.75 mls/min Ibuprofen (Ibuprofen 600 Mg Tab) 600 mg PO Q8H PRN PRN Reason: Pain Stop: 12/11/24 08:59 Insulin Aspart (Insulin Aspart Per Unit Charge) 0 units SC ACHS [facility] Stop: 12/07/24 16:29 Last Admin: 11/14/24 17:15 Dose: Not Given Insulin Glargine (Lantus Per Unit Charge) 5 units SC DAILY [facility] Stop: 12/10/24 10:29 Last Admin: 11/14/24 08:27 Dose: 5 units Lisinopril (Lisinopril 20 Mg Tab) 20 mg PO QAM [facility] Stop: 12/12/24 08:59 Last Admin: 11/14/24 08:28 Dose: 20 mg Magnesium Oxide (Magnesium Oxide 400 Mg Tab) 400 mg PO BID [facility] Stop: 12/12/24 11:59 Last Admin: 11/14/24 08:29 Dose: 400 mg Metronidazole (Metronidazole 500 Mg Tab) 500 mg PO TID [facility] Stop: 11/22/24 13:59 Last Admin: 11/14/24 15:20 Dose: 500 mg Miscellaneous (Carbohydrates For Hypoglycemia ) 15 - 30 gm PO UD PRN PRN Reason: Hypoglycemia Protocol Stop: 12/07/24 05:57 Miscellaneous Information (Pharmacy Glycemic Mgmt Consult) 1 each N/A UD PRN PRN Reason: Consult Stop: 12/07/24 05:57 Ondansetron HCl (Ondansetron Inj 2 Mg/Ml 2 Ml Vial) 4 mg IV Q6H PRN PRN Reason: Nausea Stop: 12/07/24 08:58 Oxycodone HCl (Oxycodone Hcl Ir 5 Mg Tab (Immediate Release)) 5 mg PO Q3H PRN PRN Reason: Severe Pain (Scale 7, 8, 9,10) Stop: 11/21/24 13:23 Simethicone (Simethicone 80 Mg Chew) 80 mg PO Q6H PRN PRN Reason: Flatulence Stop: 12/11/24 08:56
--- NOTE | 2024-11-15 09:04 | Pharmacy Report ---
Pharmacy Glycemic Short Note 2 - Date of Service November 15, 2024 - Glycemic Short BSG Results (Last 24 hours): 11/14/24 11/14/24 11/14/24 11:16 16:25 20:10 POC Glucose 178 H 119 H 159 H 11/15/24 07:59 POC Glucose 123 H OUTPATIENT ANTIDIABETIC REGIMEN: * Metformin 500 mg po daily (per H&P patient hasn't been taking) * HbA1c: 14.1% (11/08/24) ASSESSMENT: 11/15: * Jose received 19 units of insulin yesterday (5 were basal) * Fasting BSG this AM within goal range, continue current basal regimen * No changes to NovoLog at this time * He continues on Ancef/Flagyl at this time, awaiting home health set-up for IV antibiotics 11/13: * Jose received 24 units of insulin yesterday, 5 of which was basal. BSGs were: [phone] mg/dL. * Fasting BSG this AM was 130 mg/dL. No change to basal insulin. * Good postprandial control yesterday and tolerating T2DM diet well. No changes to bolus regimen. Continues on Ancef and Flagyl. 11/10: * Patient received a total of 23 units of insulin yesterday, all were bolus. Mealtime BSGs were still above goal ([phone]/dL) * Fasting BSG was 182mg/dL this morning. Will add a small AM dose of Lantus and will continue the bolus insulin regimen without change. 11/07: * 39 year old male admitted today for cutaneous abscess of the back. Patient is a type 2 diabetic who reportedly has not been taking medications for the last two years. Pharmacy has been consulted for glycemic management while he is admitted. * BSG on admit was 134mg/dL and then jose eduardo to 261mg/dL. A weight based bolus insulin regimen with a stress between 1 and 2 was started. Since patient is NPO, will not start basal insulin at this point. If BSG is still elevated once a diet is started, will consider adding Lantus. PLAN FOR INPATIENT GLYCEMIC CONTROL: * Hold outpatient oral diabetes medications * Basal insulin * Lantus 5 units SC AM * Bolus insulin * NovoLog per scale ACHS or Q6hrs while NPO * Goal Range: Low 120 mg/dL - High 150 mg/dL * Correction Factor: 25 mg/dL/unit * Nutritional / Prandial insulin per carb ratio of 1 unit per 9 grams CHO consumed
--- NOTE | 2024-11-15 14:43 | Hospitalist Progress Note ---
Date of Service November 15, 2024 Assessment & Plan (1) MSSA bacteremia: Plan: Patient with MSSA bacteremia Back abscess in the setting of uncontrolled diabetes. Continue IV cefazolin and Flagyl through 11/22/2024. PICC line in place [place] papers have been signed for insurance coverage before discharge (2) Cutaneous abscess of back excluding buttocks: Plan: Status post incision and drainage of back abscess on 11/07/2024 Continue dressing as per instruction (3) DM type 2 (diabetes mellitus, type 2): Plan: Continue current diabetes management, will need insulin for discharge. Check with public health educator for medical assistance insulin coverage He used to use insulin before COVID outbreak He will need insulin on discharge (4) Obesity (BMI 30-39.9): (5) Hypertension associated with diabetes: Plan: Lisinopril dose increased yesterday, continue to monitor response Plan Full code DVT prophylaxis heparin Please note the above document was generated using voice recognition software. It may contain grammatical, syntax or spelling errors. Any formal questions or concerns about the content, text or information contained within the body of this dictation should be directly addressed to the provider for clarification Admission and Anticipated Discharge Date Admission Date: November 07, 2024 Subjective Patient seen and examined at bedside. Comfortable; not in distress. Denies fever, chills, chest pain, shortness of breath, abdominal pain or urinary symptoms. No significant overnight events Review of Systems Review of Systems: All systems reviewed & are unremarkable except as noted in Subjective Physical Exam Physical Exam: Constitutional: Alert oriented x 3; not in distress. Respiratory: normal respiratory effort, lungs clear to auscultation, no wheeze, rales, rhonchi. Normal insp/exp effort, no accessory muscle use Cardiovascular: RRR, no murmur, no edema Vessels: no JVD or carotid bruit Chest: normal inspection of chest Abdomen: normal bowel sounds, soft, nontender, no hepatosplenomegaly Musculoskeletal: Dressing intact; no C/D/I Neurologic: PERRL, EOMI, accommodation nl, no face palsy, no dysarthria CN's II- XI intact bilaterally and moves all extremities Psychiatric: A+Ox3, euthymic affect Results & Data Results & Data Vital Signs (Past 12 Hours) Vital Signs Temp Pulse Resp BP Pulse Ox O2 Del Method 11/15/24 11:45 36.6 C 68 14 145/86 H 97 Room Air 11/15/24 07:17 36.7 C 73 13 135/85 98 Room Air
--- NOTE | 2024-11-16 12:00 | Hospitalist Progress Note ---
Date of Service November 16, 2024 Assessment & Plan (1) MSSA bacteremia: Plan: Patient with MSSA bacteremia Back abscess in the setting of uncontrolled diabetes. Continue IV cefazolin and Flagyl through 11/22/2024. PICC line in place [place] papers have been signed for insurance coverage before discharge (2) Cutaneous abscess of back excluding buttocks: Plan: Status post incision and drainage of back abscess on 11/07/2024 Continue dressing as per instruction (3) DM type 2 (diabetes mellitus, type 2): Plan: Continue current diabetes management, will need insulin for discharge. Check with tobacco educator for medical assistance insulin coverage He used to use insulin before COVID outbreak He will need insulin on discharge (4) Obesity (BMI 30-39.9): (5) Hypertension associated with diabetes: Plan: on lisinopril, continue Plan Full code DVT prophylaxis heparin Please note the above document was generated using voice recognition software. It may contain grammatical, syntax or spelling errors. Any formal questions or concerns about the content, text or information contained within the body of this dictation should be directly addressed to the provider for clarification Admission and Anticipated Discharge Date Admission Date: November 07, 2024 Subjective Patient seen and examined at bedside. Comfortable; not in distress. Denies fever, chills, chest pain, shortness of breath, abdominal pain or urinary symptoms. No significant overnight events Physical Exam Physical Exam: Constitutional: Alert oriented x 3; not in distress. Respiratory: normal respiratory effort, lungs clear to auscultation, no wheeze, rales, rhonchi. Normal insp/exp effort, no accessory muscle use Cardiovascular: RRR, no murmur, no edema Vessels: no JVD or carotid bruit Chest: normal inspection of chest Abdomen: normal bowel sounds, soft, nontender, no hepatosplenomegaly Musculoskeletal: Dressing intact; no C/D/I Neurologic: PERRL, EOMI, accommodation nl, no face palsy, no dysarthria CN's II- XI intact bilaterally and moves all extremities Psychiatric: A+Ox3, euthymic affect Results & Data Results & Data Vital Signs (Past 12 Hours) Vital Signs Temp Pulse Resp BP Pulse Ox O2 Del Method 11/16/24 07:12 36.4 C L 77 16 147/91 H 99 Room Air
--- NOTE | 2024-11-17 10:09 | Pharmacy Report ---
Pharmacy Glycemic Short Note 2 - Date of Service November 17, 2024 - Glycemic Short BSG Results (Last 24 hours): 11/16/24 11/16/24 11/16/24 11:12 16:09 20:32 POC Glucose 149 H 115 H 146 H 11/17/24 07:41 POC Glucose 152 H OUTPATIENT ANTIDIABETIC REGIMEN: * Metformin 500 mg po daily (per H&P patient hasn't been taking) * HbA1c: 14.1% (11/08/24) ASSESSMENT: 11/17: * Jose received 19 units of insulin yesterday (5 were basal) * Fasting BSG this AM within goal range, continue current basal regimen * Post-prandial BSGs well controlled, no changes to NovoLog * He continues on Ancef/Flagyl at this time, awaiting home health set-up for IV antibiotics 11/15: * Jose received 19 units of insulin yesterday (5 were basal) * Fasting BSG this AM within goal range, continue current basal regimen * No changes to NovoLog at this time * He continues on Ancef/Flagyl at this time, awaiting home health set-up for IV antibiotics 11/13: * Jose received 24 units of insulin yesterday, 5 of which was basal. BSGs were: [phone] mg/dL. * Fasting BSG this AM was 130 mg/dL. No change to basal insulin. * Good postprandial control yesterday and tolerating T2DM diet well. No changes to bolus regimen. Continues on Ancef and Flagyl. 11/10: * Patient received a total of 23 units of insulin yesterday, all were bolus. Mealtime BSGs were still above goal ([phone]/dL) * Fasting BSG was 182mg/dL this morning. Will add a small AM dose of Lantus and will continue the bolus insulin regimen without change. 11/07: * 39 year old male admitted today for cutaneous abscess of the back. Patient is a type 2 diabetic who reportedly has not been taking medications for the last two years. Pharmacy has been consulted for glycemic management while he is admitted. * BSG on admit was 134mg/dL and then jose eduardo to 261mg/dL. A weight based bolus insulin regimen with a stress between 1 and 2 was started. Since patient is NPO, will not start basal insulin at this point. If BSG is still elevated once a diet is started, will consider adding Lantus. PLAN FOR INPATIENT GLYCEMIC CONTROL: * Hold outpatient oral diabetes medications * Basal insulin * Lantus 5 units SC AM * Bolus insulin * NovoLog per scale ACHS or Q6hrs while NPO * Goal Range: Low 120 mg/dL - High 150 mg/dL * Correction Factor: 25 mg/dL/unit * Nutritional / Prandial insulin per carb ratio of 1 unit per 9 grams CHO consumed
[2024-11-17 10:21] LABS: Basophils # (auto) 0.02 K/uL (0.00-0.20); Basophils % (auto) 0.3 %; Eosinophils # (auto) 0.13 K/uL (0.00-0.50); Eosinophils % (auto) 2.1 %; Hematocrit (blood only) 42.7 % (42.0-52.0); Immature Granulocytes # (auto) 0.01 K/uL (0.01-0.20); Immature Granulocytes % (auto) 0.2 %; Lymphocytes # (auto) 1.55 K/uL (1.20-3.40); Lymphocytes % (auto) 24.6 %; Mean Corpuscular Hemoglobin 27.6 pg (25.0-34.0); Mean Corpuscular Hgb Conc 32.8 g/dL (32.0-36.0); Mean Corpuscular Volume 84.1 fL (80.0-100.0); Mean Platelet Volume 9.7 fL (9.4-12.4); Monocytes # (auto) 0.47 K/uL (0.11-0.59); Monocytes % (auto) 7.5 %; Neutrophils # (auto) 4.12 K/uL (1.40-6.50); Neutrophils % (auto) 65.3 %; Platelet Count 428 K/uL (130-400); RDW Coefficient of Variation 12.2 % (11.5-14.5); RDW Standard Deviation 36.7 fL (36.4-46.3); Red Blood Count 5.08 M/uL (4.70-6.10)
[2024-11-17 10:32] LABS: BUN Creatinine Ratio 17.6 (10-20); Calcium 9.2 mg/dl (8.6-10.3); Creatinine Clr Calc Pharmacy 130.2 ml/min
--- NOTE | 2024-11-17 14:00 | Hospitalist Progress Note ---
Date of Service November 17, 2024 Assessment & Plan (1) MSSA bacteremia: Plan: Patient with MSSA bacteremia Back abscess in the setting of uncontrolled diabetes. Continue IV cefazolin and Flagyl through 11/22/2024. PICC line in place [place] papers have been signed for insurance coverage before discharge (2) Cutaneous abscess of back excluding buttocks: Plan: Status post incision and drainage of back abscess on 11/07/2024 Continue dressing as per instruction (3) DM type 2 (diabetes mellitus, type 2): Plan: Continue current diabetes management, will need insulin for discharge. Check with director of group sales for medical assistance insulin coverage He used to use insulin before COVID outbreak He will need insulin on discharge (4) Obesity (BMI 30-39.9): (5) Hypertension associated with diabetes: Plan: on lisinopril, continue Plan Full code DVT prophylaxis heparin Please note the above document was generated using voice recognition software. It may contain grammatical, syntax or spelling errors. Any formal questions or concerns about the content, text or information contained within the body of this dictation should be directly addressed to the provider for clarification Admission and Anticipated Discharge Date Admission Date: November 07, 2024 Subjective Patient seen and examined at bedside. Comfortable; not in distress. Denies fever, chills, chest pain, shortness of breath, abdominal pain or urinary symptoms. No significant overnight events Review of Systems Review of Systems: All systems reviewed & are unremarkable except as noted in Subjective Physical Exam Physical Exam: Constitutional: Alert oriented x 3; not in distress. Respiratory: normal respiratory effort, lungs clear to auscultation, no wheeze, rales, rhonchi. Normal insp/exp effort, no accessory muscle use Cardiovascular: RRR, no murmur, no edema Vessels: no JVD or carotid bruit Chest: normal inspection of chest Abdomen: normal bowel sounds, soft, nontender, no hepatosplenomegaly Musculoskeletal: Dressing intact; no C/D/I Neurologic: PERRL, EOMI, accommodation nl, no face palsy, no dysarthria CN's II- XI intact bilaterally and moves all extremities Psychiatric: A+Ox3, euthymic affect Results & Data Results & Data Vital Signs (Past 12 Hours) Vital Signs Temp Pulse Resp BP Pulse Ox O2 Del Method 11/17/24 07:31 36.7 C 68 18 146/89 H 98 Room Air
--- NOTE | 2024-11-18 09:02 | Hospitalist Progress Note ---
Date of Service November 18, 2024 Assessment & Plan (1) MSSA bacteremia: Plan: Patient with MSSA bacteremia Back abscess in the setting of uncontrolled diabetes. Continue IV cefazolin and Flagyl through 11/22/2024. PICC line in place [place] papers have been signed for insurance coverage before discharge (2) Cutaneous abscess of back excluding buttocks: Plan: Status post incision and drainage of back abscess on 11/07/2024 Continue dressing as per instruction (3) DM type 2 (diabetes mellitus, type 2): Plan: Continue current diabetes management, will need insulin for discharge. Check with special education paraeducator for medical assistance insulin coverage He used to use insulin before COVID outbreak He will need insulin on discharge (4) Obesity (BMI 30-39.9): (5) Hypertension associated with diabetes: Plan: on lisinopril, continue Plan Full code DVT prophylaxis heparin Please note the above document was generated using voice recognition software. It may contain grammatical, syntax or spelling errors. Any formal questions or concerns about the content, text or information contained within the body of this dictation should be directly addressed to the provider for clarification Admission and Anticipated Discharge Date Admission Date: November 07, 2024 Subjective Patient seen and examined at bedside. He is comfortable; not in distress. Denies fever, chills, chest pain or abdominal pain or diarrhea. No significant events overnight Review of Systems Review of Systems: All systems reviewed & are unremarkable except as noted in Subjective Physical Exam Physical Exam: Constitutional: Alert oriented x 3; not in distress. Respiratory: normal respiratory effort, lungs clear to auscultation, no wheeze, rales, rhonchi. Normal insp/exp effort, no accessory muscle use Cardiovascular: RRR, no murmur, no edema Vessels: no JVD or carotid bruit Chest: normal inspection of chest Abdomen: normal bowel sounds, soft, nontender, no hepatosplenomegaly Musculoskeletal: Dressing intact; no C/D/I Neurologic: PERRL, EOMI, accommodation nl, no face palsy, no dysarthria CN's II- XI intact bilaterally and moves all extremities Psychiatric: A+Ox3, euthymic affect Results & Data Results & Data Vital Signs (Past 12 Hours) Vital Signs Temp Pulse Resp BP Pulse Ox O2 Del Method 11/18/24 07:49 36.7 C 78 16 141/91 H 97 Room Air
--- NOTE | 2024-11-19 15:44 | Hospitalist Progress Note ---
Date of Service November 19, 2024 Assessment & Plan (1) MSSA bacteremia: Plan: Patient with MSSA bacteremia Back abscess in the setting of uncontrolled diabetes. Continue IV cefazolin and Flagyl through 11/22/2024. PICC line in place [place] papers have been signed for insurance coverage before discharge Has been getting intravenous antibiotic He will finish the course of antibiotic while in the hospital and will be discharged on 30 of this month (2) Cutaneous abscess of back excluding buttocks: Plan: Status post incision and drainage of back abscess on 11/07/2024 Continue dressing as per instruction (3) DM type 2 (diabetes mellitus, type 2): Plan: Continue current diabetes management, will need insulin for discharge. Check with religious educator for medical assistance insulin coverage He used to use insulin before COVID outbreak He will need insulin on discharge (4) Obesity (BMI 30-39.9): (5) Hypertension associated with diabetes: Plan: on lisinopril, continue Plan Full code DVT prophylaxis heparin Please note the above document was generated using voice recognition software. It may contain grammatical, syntax or spelling errors. Any formal questions or concerns about the content, text or information contained within the body of this dictation should be directly addressed to the provider for clarification Admission and Anticipated Discharge Date Admission Date: November 07, 2024 Subjective 11/19/2024 The patient was seen and examined in medical floor He has been stable without any symptoms Review of Systems Review of Systems: All systems reviewed and are unremarkable except as noted below Physical Exam Physical Exam: Lying in bed without any acute distress Constitutional: well developed, well nourished, + ill appearing and + obese Eyes: PERRL, conjunctivae normal, anicteric sclerae ENMT: external ear and nose normal, oropharynx normal Neck: trachea midline, no thyromegaly Respiratory: no respiratory distress Auscultation: lungs clear to auscultation bilaterally Cardiovascular: Rate/Rhythm: regular rate and regular rhythm; not tachycardic Heart Sounds: normal S1 and normal S2; no murmur Extremities: no edema Gastrointestinal (Abdomen): Inspection/Auscultation: normal bowel sounds; abdomen not distended Percussion/Palpation: abdomen soft; abdomen nontender Neurologic: normal touch/pain/proprioception and moves all extremities; no focal motor deficits Lymphatic: no cervical or axillary lymphadenopathy Results & Data Results & Data Vital Signs (Past 12 Hours) Vital Signs Temp Pulse Resp BP Pulse Ox O2 Del Method 11/19/24 15:21 36.6 C 96 H 18 152/97 H 97 Room Air 11/19/24 11:40 36.6 C 83 18 141/87 H 97 Room Air 11/19/24 07:28 36.4 C L 86 18 142/88 H 97 Room Air Medications Administered Current Inpatient Medications Acetaminophen (Acetaminophen 325 Mg Tab) 650 mg PO Q4H PRN PRN Reason: pain/fever Stop: 12/07/24 08:58 Last Admin: 11/14/24 04:38 Dose: 650 mg Al Hydrox/Mg Hydrox/Simethicone (Aluminum/Magnesium Susp 30 Ml Udc) 30 ml PO Q6H PRN PRN Reason: Heartburn Stop: 12/11/24 08:56 Dextrose (Dextrose 50% 50 Ml Syringe) 25 - 50 ml IV UD PRN; Protocol PRN Reason: Hypoglycemia Protocol Stop: 12/07/24 05:57 Famotidine (Famotidine 20 Mg Tab) 20 mg PO BID JAK Stop: 12/11/24 08:59 Last Admin: 11/19/24 08:34 Dose: 20 mg Glucagon (Glucagon For Inj 1 Mg Vial) 1 mg SQ UD PRN; Protocol PRN Reason: Hypoglycemia Protocol Stop: 12/07/24 05:57 Glucose (Glucose 40% Gel 15 Gm Tube) 15 - 30 gm PO UD PRN; Protocol PRN Reason: Hypoglycemia Protocol Stop: 12/07/24 05:57 Glucose (Glucose 10 Tab/Tube) 4 - 8 tab PO UD PRN; Protocol PRN Reason: Hypoglycemia Protocol Stop: 12/07/24 05:57 Heparin Sodium (Beef Lung) (Heparin 10 Unit/Ml 5 Ml Flush) 5 ml FLUSH PRN PRN PRN Reason: Flush Stop: 12/10/24 19:02 Last Admin: 11/19/24 08:08 Dose: 5 ml Heparin Sodium (Porcine) (Heparin Sod 5,000 Unit/0.5 Ml Vial) 5,000 units SQ Q12 JAK Stop: 12/13/24 20:59 Last Admin: 11/19/24 09:24 Dose: 5,000 units Cefazolin Sodium (Ancef 2000mg) 2,000 mg in 15 mls @ 3.75 mls/min IV Q8H JAK Stop: 11/22/24 13:59 Last Admin: 11/19/24 13:39 Dose: 3.75 mls/min Ibuprofen (Ibuprofen 600 Mg Tab) 600 mg PO Q8H PRN PRN Reason: Pain Stop: 12/11/24 08:59 Insulin Aspart (Insulin Aspart Per Unit Charge) 0 units SC ACHS [facility] Stop: 12/07/24 16:29 Last Admin: 11/19/24 13:38 Dose: 5 units Insulin Glargine (Lantus Per Unit Charge) 5 units SC DAILY [facility] Stop: 12/10/24 10:29 Last Admin: 11/19/24 09:25 Dose: 5 units Lisinopril (Lisinopril 20 Mg Tab) 20 mg PO QAM [facility] Stop: 12/12/24 08:59 Last Admin: 11/19/24 08:32 Dose: 20 mg Magnesium Oxide (Magnesium Oxide 400 Mg Tab) 400 mg PO BID [facility] Stop: 12/12/24 11:59 Last Admin: 11/19/24 08:33 Dose: 400 mg Metronidazole (Metronidazole 500 Mg Tab) 500 mg PO TID [facility] Stop: 11/22/24 13:59 Last Admin: 11/19/24 13:39 Dose: 500 mg Miscellaneous (Carbohydrates For Hypoglycemia ) 15 - 30 gm PO UD PRN PRN Reason: Hypoglycemia Protocol Stop: 12/07/24 05:57 Miscellaneous Information (Pharmacy Glycemic Mgmt Consult) 1 each N/A UD PRN PRN Reason: Consult Stop: 12/07/24 05:57 Ondansetron HCl (Ondansetron Inj 2 Mg/Ml 2 Ml Vial) 4 mg IV Q6H PRN PRN Reason: Nausea Stop: 12/07/24 08:58 Oxycodone HCl (Oxycodone Hcl Ir 5 Mg Tab (Immediate Release)) 5 mg PO Q3H PRN PRN Reason: Severe Pain (Scale 7, 8, 9,10) Stop: 11/21/24 13:23 Simethicone (Simethicone 80 Mg Chew) 80 mg PO Q6H PRN PRN Reason: Flatulence Stop: 12/11/24 08:56
[2024-11-20] MEDS: IBUPROFEN 600 MG TAB PO PRN (05:56)
[2024-11-20] MEDS: LANTUS PER UNIT CHARGE SC SCH (08:20)
--- NOTE | 2024-11-20 11:47 | Pharmacy Report ---
Pharmacy Glycemic Short Note 2 - Date of Service November 20, 2024 - Glycemic Short BSG Results (Last 24 hours): 11/19/24 11/19/24 11/20/24 16:26 20:49 07:40 POC Glucose 144 H 130 H 185 H 11/20/24 11:22 POC Glucose 179 H OUTPATIENT ANTIDIABETIC REGIMEN: * Metformin 500 mg po daily (per H&P patient hasn't been taking) * HbA1c: 14.1% (11/08/24) ASSESSMENT: 11/20: * Patient received a total of 18 units of insulin yesterday (5 units were basal and 13 units were bolus) * Fasting BSG was elevated at 185mg/dL. Lantus dose was increased. * Will continue bolus insulin without change to parameters. 11/17: * Jose received 19 units of insulin yesterday (5 were basal) * Fasting BSG this AM within goal range, continue current basal regimen * Post-prandial BSGs well controlled, no changes to NovoLog * He continues on Ancef/Flagyl at this time, awaiting home health set-up for IV antibiotics 11/15: * Jose received 19 units of insulin yesterday (5 were basal) * Fasting BSG this AM within goal range, continue current basal regimen * No changes to NovoLog at this time * He continues on Ancef/Flagyl at this time, awaiting home health set-up for IV antibiotics 11/13: * Jose received 24 units of insulin yesterday, 5 of which was basal. BSGs were: [phone] mg/dL. * Fasting BSG this AM was 130 mg/dL. No change to basal insulin. * Good postprandial control yesterday and tolerating T2DM diet well. No changes to bolus regimen. Continues on Ancef and Flagyl. 11/10: * Patient received a total of 23 units of insulin yesterday, all were bolus. Mealtime BSGs were still above goal ([phone]/dL) * Fasting BSG was 182mg/dL this morning. Will add a small AM dose of Lantus and will continue the bolus insulin regimen without change. 11/07: * 39 year old male admitted today for cutaneous abscess of the back. Patient is a type 2 diabetic who reportedly has not been taking medications for the last two years. Pharmacy has been consulted for glycemic management while he is admitted. * BSG on admit was 134mg/dL and then jose eduardo to 261mg/dL. A weight based bolus insulin regimen with a stress between 1 and 2 was started. Since patient is NPO, will not start basal insulin at this point. If BSG is still elevated once a diet is started, will consider adding Lantus. PLAN FOR INPATIENT GLYCEMIC CONTROL: * Hold outpatient oral diabetes medications * Basal insulin * Lantus 7 units SC AM * Bolus insulin * NovoLog per scale ACHS or Q6hrs while NPO * Goal Range: Low 120 mg/dL - High 160 mg/dL * Correction Factor: 30 mg/dL/unit * Nutritional / Prandial insulin per carb ratio of 1 unit per 10 grams CHO consumed
--- NOTE | 2024-11-20 13:53 | Hospitalist Progress Note ---
Date of Service November 20, 2024 Assessment & Plan (1) MSSA bacteremia: Plan: Patient with MSSA bacteremia Back abscess in the setting of uncontrolled diabetes. Continue IV cefazolin and Flagyl through 11/22/2024. PICC line in place [place] papers have been signed for insurance coverage before discharge Has been getting intravenous antibiotic He will finish the course of antibiotic while in the hospital and will be discharged on 30 of this month Remains stable without any symptoms and has been ambulating in the hallway without any difficulties He will be discharged on of this month (2) Cutaneous abscess of back excluding buttocks: Plan: Status post incision and drainage of back abscess on 11/07/2024 Continue dressing as per instruction No tenderness at the I&D site at the back (3) DM type 2 (diabetes mellitus, type 2): Plan: Continue current diabetes management, will need insulin for discharge. Check with power generation technician for medical assistance insulin coverage He used to use insulin before COVID outbreak He will need insulin on discharge (4) Obesity (BMI 30-39.9): (5) Hypertension associated with diabetes: Plan: on lisinopril, continue Plan Full code DVT prophylaxis heparin Please note the above document was generated using voice recognition software. It may contain grammatical, syntax or spelling errors. Any formal questions or concerns about the content, text or information contained within the body of this dictation should be directly addressed to the provider for clarification Admission and Anticipated Discharge Date Admission Date: November 07, 2024 Subjective 11/19/2024 The patient was seen and examined in medical floor He has been stable without any symptoms 11/20/2024 The patient was seen and examined in medical floor He denies any symptoms Review of Systems Review of Systems: All systems reviewed and are unremarkable except as noted below Physical Exam Physical Exam: Lying in bed without any acute distress Constitutional: well developed, well nourished, + ill appearing and + obese Eyes: PERRL, conjunctivae normal, anicteric sclerae ENMT: external ear and nose normal, oropharynx normal Neck: trachea midline, no thyromegaly Respiratory: no respiratory distress Auscultation: lungs clear to auscultation bilaterally Cardiovascular: Rate/Rhythm: regular rate and regular rhythm; not tachycardic Heart Sounds: normal S1 and normal S2; no murmur Extremities: no edema Gastrointestinal (Abdomen): Inspection/Auscultation: normal bowel sounds; abdomen not distended Percussion/Palpation: abdomen soft; abdomen nontender Neurologic: normal touch/pain/proprioception and moves all extremities; no focal motor deficits Lymphatic: no cervical or axillary lymphadenopathy Results & Data Results & Data Vital Signs (Past 12 Hours) Vital Signs Temp Pulse Resp BP Pulse Ox O2 Del Method 11/20/24 07:40 36.7 C 89 18 127/87 97 Room Air Medications Administered Current Inpatient Medications Acetaminophen (Acetaminophen 325 Mg Tab) 650 mg PO Q4H PRN PRN Reason: pain/fever Stop: 12/07/24 08:58 Last Admin: 11/14/24 04:38 Dose: 650 mg Al Hydrox/Mg Hydrox/Simethicone (Aluminum/Magnesium Susp 30 Ml Udc) 30 ml PO Q6H PRN PRN Reason: Heartburn Stop: 12/11/24 08:56 Dextrose (Dextrose 50% 50 Ml Syringe) 25 - 50 ml IV UD PRN; Protocol PRN Reason: Hypoglycemia Protocol Stop: 12/07/24 05:57 Famotidine (Famotidine 20 Mg Tab) 20 mg PO BID JAK Stop: 12/11/24 08:59 Last Admin: 11/20/24 07:57 Dose: 20 mg Glucagon (Glucagon For Inj 1 Mg Vial) 1 mg SQ UD PRN; Protocol PRN Reason: Hypoglycemia Protocol Stop: 12/07/24 05:57 Glucose (Glucose 40% Gel 15 Gm Tube) 15 - 30 gm PO UD PRN; Protocol PRN Reason: Hypoglycemia Protocol Stop: 12/07/24 05:57 Glucose (Glucose 10 Tab/Tube) 4 - 8 tab PO UD PRN; Protocol PRN Reason: Hypoglycemia Protocol Stop: 12/07/24 05:57 Heparin Sodium (Beef Lung) (Heparin 10 Unit/Ml 5 Ml Flush) 5 ml FLUSH PRN PRN PRN Reason: Flush Stop: 12/10/24 19:02 Last Admin: 11/19/24 08:08 Dose: 5 ml Heparin Sodium (Porcine) (Heparin Sod 5,000 Unit/0.5 Ml Vial) 5,000 units SQ Q12 JAK Stop: 12/13/24 20:59 Last Admin: 11/20/24 08:20 Dose: 5,000 units Cefazolin Sodium (Ancef 2000mg) 2,000 mg in 15 mls @ 3.75 mls/min IV Q8H [facility] Stop: 11/22/24 13:59 Last Admin: 11/20/24 05:51 Dose: 3.75 mls/min Ibuprofen (Ibuprofen 600 Mg Tab) 600 mg PO Q8H PRN PRN Reason: Pain Stop: 12/11/24 08:59 Last Admin: 11/20/24 05:56 Dose: 600 mg Insulin Aspart (Insulin Aspart Per Unit Charge) 0 units SC ACHS [facility] Stop: 12/07/24 16:29 Last Admin: 11/20/24 12:21 Dose: 8 units Insulin Glargine (Lantus Per Unit Charge) 7 units SC DAILY [facility] Stop: 12/20/24 08:59 Last Admin: 11/20/24 08:20 Dose: 7 units Lisinopril (Lisinopril 20 Mg Tab) 20 mg PO QAM [facility] Stop: 12/12/24 08:59 Last Admin: 11/20/24 07:57 Dose: 20 mg Magnesium Oxide (Magnesium Oxide 400 Mg Tab) 400 mg PO BID [facility] Stop: 12/12/24 11:59 Last Admin: 11/20/24 07:57 Dose: 400 mg Metronidazole (Metronidazole 500 Mg Tab) 500 mg PO TID [facility] Stop: 11/22/24 13:59 Last Admin: 11/20/24 07:57 Dose: 500 mg Miscellaneous (Carbohydrates For Hypoglycemia ) 15 - 30 gm PO UD PRN PRN Reason: Hypoglycemia Protocol Stop: 12/07/24 05:57 Miscellaneous Information (Pharmacy Glycemic Mgmt Consult) 1 each N/A UD PRN PRN Reason: Consult Stop: 12/07/24 05:57 Ondansetron HCl (Ondansetron Inj 2 Mg/Ml 2 Ml Vial) 4 mg IV Q6H PRN PRN Reason: Nausea Stop: 12/07/24 08:58 Oxycodone HCl (Oxycodone Hcl Ir 5 Mg Tab (Immediate Release)) 5 mg PO Q3H PRN PRN Reason: Severe Pain (Scale 7, 8, 9,10) Stop: 11/21/24 13:23 Simethicone (Simethicone 80 Mg Chew) 80 mg PO Q6H PRN PRN Reason: Flatulence Stop: 12/11/24 08:56
[2024-11-21 04:19] LABS: Basophils # (auto) 0.03 K/uL (0.00-0.20); Basophils % (auto) 0.6 %; Eosinophils # (auto) 0.14 K/uL (0.00-0.50); Eosinophils % (auto) 2.6 %; Hematocrit (blood only) 43.7 % (42.0-52.0); Hemoglobin 14.3 g/dl (14.0-18.0); Immature Granulocytes # (auto) 0.02 K/uL (0.01-0.20); Immature Granulocytes % (auto) 0.4 %; Lymphocytes # (auto) 2.15 K/uL (1.20-3.40); Lymphocytes % (auto) 39.7 %; Mean Corpuscular Hemoglobin 27.8 pg (25.0-34.0); Mean Corpuscular Hgb Conc 32.7 g/dL (32.0-36.0); Mean Platelet Volume 9.7 fL (9.4-12.4); Monocytes # (auto) 0.63 K/uL (0.11-0.59); Monocytes % (auto) 11.6 %; Neutrophils # (auto) 2.45 K/uL (1.40-6.50); Neutrophils % (auto) 45.1 %; Platelet Count 364 K/uL (130-400); RDW Coefficient of Variation 12.1 % (11.5-14.5); RDW Standard Deviation 37.6 fL (36.4-46.3); Red Blood Count 5.14 M/uL (4.70-6.10); White Blood Count 5.42 K/ul (4.8-10.8)
[2024-11-21 04:37] LABS: Albumin Globulin Ratio 1.2 (0.9-2); Albumin Level 3.8 gm/dl (3.4-5.0); BUN Creatinine Ratio 28.6 (10-20); Bilirubin,Total 0.4 mg/dl (0.2-1.0); Calcium 9.3 mg/dl (8.6-10.3); Creatinine Clr Calc Pharmacy 169.2 ml/min; Globulin 3.3 gm/dl (2.5-4.0); Potassium 4.1 mmol/L (3.5-5.1); Total Protein 7.1 gm/dl (6.0-8.3)
--- NOTE | 2024-11-21 07:40 | Hospitalist Progress Note ---
Date of Service November 21, 2024 Assessment & Plan (1) MSSA bacteremia: Plan: Patient with MSSA bacteremia Back abscess in the setting of uncontrolled diabetes. Continue IV cefazolin and Flagyl through 11/22/2024. PICC line in place [place] papers have been signed for insurance coverage before discharge Has been getting intravenous antibiotic; Completion date 11/22 discharge plan for tomorrow 11/22 Remains stable without any symptoms and has been ambulating in the hallway without any difficulties (2) Cutaneous abscess of back excluding buttocks: Plan: Status post incision and drainage of back abscess on 11/07/2024 Continue dressing as per instruction; dressing clean dry and intact No tenderness at the I&D site at the back; or any other spinal tenderness (3) DM type 2 (diabetes mellitus, type 2): Plan: Continue current diabetes management breastfeeding educator for medical assistance insulin coverage; He used to use insulin before COVID outbreak Discussed with CDE regarding what would be best to discharge him on; for now we will do twice daily basal dosing without bolus to aid in his compliance until future CDE follow-ups and education provided we will send patient home on Tresiba U-100 Flexpen 15 units basal (free thru above program) daily until his follow-up where this could be adjusted. Pt can then purchase ReliOn/Novolin 70/30 over the counter thru [employer]. A box of 5 pens costs $43. patient's MA will not be cleared at discharge Discussed with glycemic pharmacy and will send home on from CDE prior to discharge on 11/22 as well. Did not tolerate Metformin previously; will not send home on this. Discussed with CDE and he will be prescribed Tresiba U100 FlexPen 15 units daily . He got 27 units on 11/20. This will cover ~50% and ~0.15 units/kg Discussed with Nurse Navigator for [facility]; plan for [facility] for initial follow up; then transition to [facility] based on MA clearance (4) Obesity (BMI 30-39.9): (5) Hypertension associated with diabetes: Plan: on lisinopril, continue Plan Full code DVT prophylaxis: heparin SQ I spent a total of 58 minutes coordinating, documenting, and providing care for this patient excluding time spent inthe performance of separately billed services or time spent by another provider/QHP. Please note the above document was generated using voice recognition software. It may contain grammatical, syntax or spelling errors. Any formal questions or concerns about the content, text or information contained within the body of this dictation should be directly addressed to the provider for clarification Admission and Anticipated Discharge Date Admission Date: November 07, 2024 Supervising Physician Co-Signing Physician Notes Attending addendum: The patient was seen and examined in medical floor He has been stable without significant problem Has been ambulating in the room and in the hallway without any difficulties On examination Sitting at the edge of the bed without any acute distress Remains hemodynamically stable with unremarkable physical examination His labs and medications reviewed Status post I&D for back abscess and has been on intravenous antibiotic The course of antibiotic will be done tomorrow and he will be discharged after that He will require insulin insulin on discharge Agree with assessment and plan as outlined above by Isa HENRY and take the full responsibility of care in the hospital Total time taken to document on this was [address] Shira khan Subjective Patient is a pleasant individual sitting in his hospital bed just ready to eat breakfast in no apparent distress. Patient denies chest pain, dizziness, shortness of breath, abdominal pain or tenderness, spinal point tenderness, fever or chills. Patient completion of antibiotics plan for 11/22 with hopes for discharge thereafter. Patient has a goal to be discharged between 10 AM and noon tomorrow 11/22. reviewed what insulin he will go home on. MA not cleared yet so discussed with breastfeeding educator regarding twice daily basal dosing until follow-up adjustments can be made. Review of Systems Review of Systems: Neuro: (-) Falls, trauma, slurred speech HEENT: (-) ATWOOD, dizziness, dysphagia, visual or auditory changes CV: (-) CP, palpitations, swelling Resp: (-) SOB GI: (-) appetite changes, N/V/D, bowel changes : (-) urinary changes Skin: (-) rashes Psych: (-) anxiety, depression Physical Exam Physical Exam: Neuro: AAOx4, PERRLA, no aphagia, memory changes, CNII-XII grossly intact HEENT: head normocephalic, moist mucus membranes CV: S1/S2, (-) M/G/R, (-) edema, cap refill < 3 seconds Resp: Lungs CTA in all trinh. On RA GI: Abdomen S/NT/ND, Ax4 bowel sounds, (-) CVA tenderness Musculoskeletal: 5/5 B/L UE strength, 5/5 B/L LE strength. No gait disturbance. No spinal point tenderness on exam. Skin: (-) rashes , (-) erythema. Mid back dressing clean dry and intact. Psych: euthymic mood Results & Data Results & Data Vital Signs (Past 12 Hours) Vital Signs Temp Pulse Resp BP Pulse Ox O2 Del Method 11/21/24 07:15 36.7 C 78 20 116/69 99 Room Air 11/20/24 20:11 36.4 C L 81 16 155/91 H 98 Room Air Laboratory Results Short CBC 11/21/24 Range/Units 03:49 WBC 5.42 (4.8-10.8) K/ul Hgb 14.3 (14.0-18.0) g/dl Hct 43.7 (42.0-52.0) % Plt Count 364 (130-400) K/uL BMP 11/21/24 03:49 Sodium 136 Potassium 4.1 Chloride 105 Carbon Dioxide 24 BUN 20 Creatinine 0.70 Glucose 146 H Calcium 9.3 Liver Function 11/21/24 Range/Units 03:49 Total Bilirubin 0.4 (0.2-1.0) mg/dl AST 12 L (13-39) U/L ALT 9 (7-52) U/L Alkaline Phosphatase 54 (34-104) U/L Albumin 3.8 (3.4-5.0) gm/dl
[2024-11-21 16:14] VITALS: RESP 16
--- NOTE | 2024-11-22 07:07 | Discharge Summary ---
Discharge Summary Date of Service November 22, 2024 Principal Dx & Hospital Course #1 = Principal Diagnosis (1) MSSA bacteremia: (2) Cutaneous abscess of back excluding buttocks: Jose Luis is a 39y/o M with PMHx significant for uncontrolled DMII, HTN an d obesity who was admitted under our service for management of MSSA bacteremia in the setting of an underlying cutaneous back abscess and uncontrolled DMII. Underwent I&D of back abscess with general surgery on 11/07. Educated on how to perform dressing changes at home and provided with wound care supplies prior to discharge. Patient to call and arrange follow-up appointment with Dr. Perry within the next 1-2 weeks to monitoring healing of I&D site. Seen and evaluated by ID. Completed ABX therapy course consisting of Ancef and Flagyl x 2 weeks from date of repeat sterile blood cultures as recommended by ID. MA papers have been signed for insurance coverage however still waiting hear back regarding this at time of discharge - discussed at bedside with patient. (3) DM type 2 (diabetes mellitus, type 2): Uncontrolled DMII. Hgb A1c 14.1% this admission. Previously on insulin therapy (Lantus 70U daily and Novolog 20U AC) however this was stopped about 3 years prior due to loss of health insurance coverage. Unable to tolerate metformin due to GI side effects. Met with simulation educator on several occasions. Patient was given an Emergency Insulin Supply Card through [employer] which entitles him to a free 1-month supply of any insulin from [employer]. Will be discharged on Tresiba U-100 FlexPen 15U daily basal dosing (free through above program). This can be further adjusted if needed at his follow-up appointment with [facility]. Patient can purchase ReliOn/Novolin 70/30 OTC through [employer]. A box of 5 pens costs $43. Case discussed with our [facility] Nurse Navigator, Katherin. Initial follow-up with [facility]. Then the plan is for him to transition to one of the [facility] clinics, based on his MA clearance, for further DM management. Patient provided with a ReliOn Premier glucometer prior to discharge which he can purchase supplies for OTC. (4) Hypertension associated with diabetes: Well-controlled on current lisinopril dose - continue on discharge. PCP: [facility] Disposition: Patient is being discharged home in good condition with close follow-up through [facility] to be arranged. Patient seen in collaboration with Dr. Croft. Please see addendum. I spent a total of 65 minutes coordinating, documenting, and providing care for this patient excluding time spent in the performance of separately billed services or time spent by another provider/QHP. This included personally reviewing all current laboratories and imaging studies, medical reconciliation, outpatient chart review and discussion with specialists. This chart was completed in part utilizing Speech Voice Recognition Software. Grammatical errors, random word insertions, pronoun errors, and incomplete sentences are an occasional consequence of this system due to software limitations, ambient noise, and hardware issues. Any formal questions or concerns about the content, text, or information contained within the body of this dictation should be directly addressed to the provider for clarification. Notes For Next Care Provider Needs a follow-up appointment arranged with Dr. Perry of [facility] General Surgery within the next 1-2 weeks. Patient provided with an Emergency Insulin Supply Card through [employer] which entitles him to a free 1-month supply of any insulin from [employer]. Medication Changes From Visit 1.) Lisinopril 20mg QAM 2.) Tresiba U-100 FlexPen 15U daily basal dosing Admission HPI Per Admitting Provider 39-year-old male with past medical history significant for diabetes but not taking medications for last 2 years and patient says he also has history of hypertension but states it is under control and not taking medications, obesity comes because of severe back pain and found to have cellulitis of the lower mid back. Patient says he started having back pain last Wednesday and Wednesday he had temperature of 102.9 degrees. Patient was in the ER yesterday morning with back pain and found to have leukocytosis and CT abdomen pelvis was done which showed was consistent with a cellulitis of the lower back with no focal soft tissue abscess. Patient was discharged on Bactrim and Keflex. But the pain was not getting better. And as patient was not improving he came back. The pain is severe in the lower back and is radiating to the lower rib cage. Having ambulatory dysfunction because of pain. When the pain is severe he feels short of breath. Has headache. No sore throat or cough. Normal bowel and bladder movements. Hemodynamics are okay. Past medical history. As mentioned above Past surgical history. ACL and PCL of right knee. Social history. Quit smoking about 6 years ago. Prior to that smoked but not much. No alcohol use. Smokes pot and last was 4 months ago. Family history. Mother had type 1 diabetes. Admission Exam Per Admitting Provider General- Not in distress Head- atraumatic Eyes- PERRL. ENT- oropharynx clear Neck- supple, no JVD. Lungs- clear to auscultation no wheezing or crackles Heart- regular rate and rhythm; no murmur, no gallop. Abdomen- normal bowel sounds, soft, nontender, no distension Extremities- no pretibial edema, no erythema seen Neuro- alert, oriented PERRL, no facial palsy; no dysarthria; moves extremities, sensations intact lower extremity Skin: erythematous region seen in the back at lower thoracic and upper lumbar region,tender and indurated to palpation Discharge Exam General: WD/WN. Sitting up in bed. Very pleasant. A&Ox4, conversing appropriately. NAD. HEENT: Normocephalic, atraumatic. Conjunctivae normal. External ear/nose normal, oropharynx normal. Respiratory: Normal respiratory effort, lungs clear to auscultation bilaterally. Cardiovascular: Regular rate and rhythm. Normal peripheral pulses, no BLE edema. Abdomen/GI: Normal bowel sounds, soft, nondistended, nontender to palpation in all quadrants. Extremities/MSK: No cyanosis or clubbing, extremities motor strength intact. + mid back surgical dressing C/D/I. Back wound directly visualized upon removal of dressing. No active drainage noted. Mildly TTP around wound site. No surrounding erythema or warmth with palpation. Neurologic: No overt focal deficits, CN's II-XI not formally tested but appear grossly intact bilaterally. Updated Medication List Medication Instructions Recorded Confirmed Type famotidine 20 mg tablet 20 mg PO BID #30 tabs 11/21/24 Rx insulin degludec 100 unit/mL (3 15 unit (0.15 mL) subcut DAILY 11/21/24 Rx mL) subcutaneous pen (Tresiba diabetes #15 mL FlexTouch U-100 insulin) lisinopril 20 mg tablet 20 mg PO QAM hypertension #30 tabs 11/21/24 Rx famotidine 20 mg tablet 20 mg PO BID #30 tabs 11/22/24 Rx insulin degludec 100 unit/mL (3 15 unit (0.15 mL) subcut DAILY #5 11/22/24 Rx mL) subcutaneous pen (Tresiba syringes FlexTouch U-100 insulin) lisinopril 20 mg tablet 20 mg PO DAILY #60 tabs 11/22/24 Rx Hospital Stay Data Consultations 11/07/24 05:22 ED Decision to Admit Stat 11/07/24 08:59 Consult General Surgery Routine 11/08/24 09:33 Consult Infectious Diseases Routine Procedures Performed Operation Date: 11/07/24 07:00 Actual Procedures p Incision and Drainage Back Abscess(Not Applicable) - Yaniv Perry, Diagnostic Imagining Performed MRI Thoracic/Lumbar Spine Impression: 1.) Ill-defined peripheral enhancing multiloculated lesion seen in visualized back at lower thoracic vertebra level in subcutaneous plane with significant perilesional inflammation - likely abscess with extensive inflammatory changes in the subcutaneous tissue. Laboratory Results WBC 5.42 K/ul (4.8-10.8) 11/21/24 03:49 RBC 5.14 M/uL (4.70-6.10) 11/21/24 03:49 Hgb 14.3 g/dl (14.0-18.0) 11/21/24 03:49 POC Hgb 13.3 g/dl (14.0-18.0) L 11/07/24 06:10 Hct 43.7 % (42.0-52.0) 11/21/24 03:49 POC Hct 39 % (42-52) L 11/07/24 06:10 MCV 85.0 fL (80.0-100.0) 11/21/24 03:49 MCH 27.8 pg (25.0-34.0) 11/21/24 03:49 MCHC 32.7 g/dL (32.0-36.0) 11/21/24 03:49 RDW Std Deviation 37.6 fL (36.4-46.3) 11/21/24 03:49 RDW Coeff of Mel 12.1 % (11.5-14.5) 11/21/24 03:49 Plt Count 364 K/uL (130-400) 11/21/24 03:49 MPV 9.7 fL (9.4-12.4) 11/21/24 03:49 Immature Gran % (Auto) 0.4 % 11/21/24 03:49 Neut % (Auto) 45.1 % 11/21/24 03:49 Lymph % (Auto) 39.7 % 11/21/24 03:49 Harris % (Auto) 11.6 % 11/21/24 03:49 Eos % (Auto) 2.6 % 11/21/24 03:49 Baso % (Auto) 0.6 % 11/21/24 03:49 Neut # (Auto) 2.45 K/uL (1.40-6.50) 11/21/24 03:49 Lymph # (Auto) 2.15 K/uL (1.20-3.40) 11/21/24 03:49 Harris # (Auto) 0.63 K/uL (0.11-0.59) H 11/21/24 03:49 Eos # (Auto) 0.14 K/uL (0.00-0.50) 11/21/24 03:49 Baso # (Auto) 0.03 K/uL (0.00-0.20) 11/21/24 03:49 Immature Gran # (Auto) 0.02 K/uL (0.01-0.20) 11/21/24 03:49 ESR 81 mm/hr (0-15) H 11/07/24 03:46 PT 11.4 Seconds (9.0-12.0) 11/07/24 03:34 INR 1.1 (0.9-1.1) 11/07/24 03:34 APTT 32 Seconds (21-31) H 11/07/24 03:34 PTT Ratio 1.2 11/07/24 03:34 VBG pH 7.42 (7.36-7.41) H 11/07/24 06:33 VBG pCO2 36 mmHg (38-50) L 11/07/24 06:33 VBG pO2 66 mmHg 11/07/24 06:33 VBG HCO3 23 mmol/L 11/07/24 06:33 VBG O2 Saturation 93.9 % 11/07/24 06:33 VBG Base Excess -0.7 mEq/L 11/07/24 06:33 POC Sodium 139 mmol/L (135-144) 11/07/24 06:10 Sodium 136 mmol/L (136-145) 11/21/24 03:49 POC Potassium 4.7 mmol/L (3.3-5.0) 11/07/24 06:10 Potassium 4.1 mmol/L (3.5-5.1) 11/21/24 03:49 POC Chloride 102 mmol/L (101-112) 11/07/24 06:10 Chloride 105 mmol/L (98-107) 11/21/24 03:49 Carbon Dioxide 24 mmol/L (21-32) 11/21/24 03:49 POC Total CO2 26 mmol/L (24-31) 11/07/24 06:10 Anion Gap 7 (3-11) 11/21/24 03:49 POC Anion Gap 17.0 mmol/L (16-25) 11/07/24 06:10 POC BUN 18 mg/dl (7-18) 11/07/24 06:10 BUN 20 mg/dl (6-23) 11/21/24 03:49 Creatinine 0.70 mg/dl (0.6-1.4) 11/21/24 03:49 POC Creatinine 1.0 mg/dl (0.6-1.3) 11/07/24 06:10 Est Cr Clr Drug Dosing 169.2 ml/min 11/21/24 03:49 eGFR 118.72 11/21/24 03:49 BUN/Creatinine Ratio 28.6 (10-20) H 11/21/24 03:49 Glucose 146 mg/dl (70-99(Fasting)) H 11/21/24 03:49 POC Glucose 173 mg/dl (70-99) H 11/22/24 07:33 POC Glucose (other) 134 mg/dl (70-99) H 11/07/24 06:10 Estimat Average Glucose 358 mg/dl 11/08/24 06:22 Hemoglobin A1c 14.1 % (4.5-5.6) H 11/08/24 06:22 Lactate 1.5 mmol/L (0.4-2.0) 11/07/24 03:46 Calcium 9.3 mg/dl (8.6-10.3) 11/21/24 03:49 POC Ioniz Calcium Aspen 1.16 mmol/l (1.12-1.32) 11/07/24 06:10 Magnesium 1.6 mg/dl (1.7-2.4) L 11/13/24 06:14 Total Bilirubin 0.4 mg/dl (0.2-1.0) 11/21/24 03:49 Direct Bilirubin 0.2 mg/dl (0-0.2) 11/07/24 03:34 AST 12 U/L (13-39) L 11/21/24 03:49 ALT 9 U/L (7-52) 11/21/24 03:49 Alkaline Phosphatase 54 U/L (34-104) 11/21/24 03:49 Total Creatine Kinase 76 U/L (30-223) 11/07/24 03:34 Troponin I High Sens 6.3 pg/ml (0-20) 11/07/24 03:34 C-Reactive Protein 22.48 mg/dl (0-0.5) H 11/07/24 03:34 Total Protein 7.1 gm/dl (6.0-8.3) 11/21/24 03:49 Albumin 3.8 gm/dl (3.4-5.0) 11/21/24 03:49 Globulin 3.3 gm/dl (2.5-4.0) 11/21/24 03:49 Albumin/Globulin Ratio 1.2 (0.9-2) 11/21/24 03:49 Procalcitonin 0.10 ng/ml (0-0.5) 11/07/24 03:34 Urine Color Yellow 11/07/24 05:54 Urine Appearance Clear (Clear) 11/07/24 05:54 Urine pH 6.0 (4.5-7.5) 11/07/24 05:54 Ur Specific [place] 1.010 (1.000-1.030) 11/07/24 05:54 Urine Protein Negative (Negative) 11/07/24 05:54 Urine Glucose (UA) 3+ (Negative) H 11/07/24 05:54 Urine Ketones Negative (Negative) 11/07/24 05:54 Urine Blood 1+ (Negative) H 11/07/24 05:54 Urine Nitrite Negative (Negative) 11/07/24 05:54 Urine Bilirubin Negative (Negative) 11/07/24 05:54 Urine Urobilinogen Negative (Negative) 11/07/24 05:54 Ur Leukocyte Esterase Negative (Negative) 11/07/24 05:54 Urine RBC 11-20 /hpf (0-2) H 11/07/24 05:54 Urine WBC 6-10 /hpf (0-5) H 11/07/24 05:54 Ur Epithelial Cells 0-2 /hpf (0-2) 11/07/24 05:54 Urine Bacteria None Seen (None Seen) 11/07/24 05:54 Staphylococcus sp PCR DETECTED (NotDetected) A 11/07/24 06:15 Staph aureus (PCR) DETECTED (NotDetected) A 11/07/24 06:15 mecA/C & MREJ Resist Gene MRSA Not Detected (NotDetected) 11/07/24 06:15 Bld Cult ID Panel PCR See PCR Comment (NotDetected) 11/07/24 06:15 Impressions Chest X-Ray 11/07/24 03:34 EXAM: XR chest 1V portable CLINICAL HISTORY: Sepsis TECHNIQUE: An X-ray image of the chest is obtained in AP projection. COMPARISON: 05/14/2024 XR chest FINDINGS: Pulmonary Parenchyma: Prominent both chhaya with perihilar and basal accentuated bronchovascular markings and peribronchial wall thickening, suggesting lung congestion. No evidence of consolidation, collapse, or focal opacities. No pulmonary nodules are identified. No evidence of pleural effusion or pleural thickening. Heart and Mediastinum: Heart size and shape are normal. No mediastinal widening or masses. No hilar or mediastinal lymphadenopathy. Bony Thorax: Bony thorax appears intact without fractures or deformities. Soft Tissues: Soft tissues overlying the chest wall are unremarkable. IMPRESSION: 1. Prominent both chhaya with perihilar and basal accentuated bronchovascular markings and peribronchial wall thickening, suggesting lung congestion interval changes. 2. No acute cardiopulmonary abnormalities are identified. Electronically signed by Wilman Mendoza 11-07-2024 04:38 AM Lumbar Spine MRI 11/07/24 03:34 EXAM: MR lumbar spine wo/w con CLINICAL HISTORY: severe mid/low back pain,? abcesss TECHNIQUE: Multisequential and multiplanar images of the lumbar spine were submitted for review without and with contrast. COMPARISON: none FINDINGS: Ill defined peripheral enhancing multiloculated lesion seen in visualized back at lower thoracic and upper lumbar vertebral level in subcutaneous plane with significant perilesional inflammation. The conus terminates at approximately L1. Alignment of the lumbar spine is normal. Bone marrow signal is normal. No evidence of compression fracture. The visualized paravertebral soft tissues are unremarkable. No significant disc bulge/spinal canal stenosis/neural foraminal narrowing. IMPRESSION: 1. Ill defined peripheral enhancing multiloculated lesion seen in visualized back at lower thoracic and upper lumbar vertebral level in subcutaneous plane with significant perilesional inflammation--- Likely Abscess with extensive inflammatory changes in subcutaneous tissue. 2. No significant abnormality in lumbar spine. Electronically signed by Lai Wyman 11-07-2024 06:01 AM Thoracic Spine MRI 11/07/24 03:34 EXAM: MR thoracic spine wo/w con CLINICAL HISTORY: severe mid/low back pain,? abcesss TECHNIQUE: Multisequential and multiplanar images of the thoracic spine were submitted for review without and with contrast. COMPARISON: none FINDINGS: Ill defined peripheral enhancing multiloculated lesion seen in visualized back at lower thoracic vertebra level(aboiut T9 to T12 level) in subcutaneous plane with significant perilesional inflammation. The lesion measures about 3.1x4.5x12cm The cord is normal in caliber and signal. No abnormal bone marrow signal demonstrated throughout the thoracic spine to suggest a fracture. Alignment of the thoracic spine is normal. No disc bulge. No canal stenosis. No neuroforaminal narrowing. No evidence of compression fracture. IMPRESSION: 1. Ill defined peripheral enhancing multiloculated lesion seen in visualized back at lower thoracic vertebra level in subcutaneous plane with significant perilesional inflammation- likely Abscess. Electronically signed by Lai Wyman 11-07-2024 06:07 AM Pending Results Patient Have Any Pending Studies at Discharge: No Discharge Instructions Given to Patient (Per Discharging Provider) Phillip Mir presented to [facility] with severe back pain and were found to have cellulitis of the lower mid back. You were also found to have a subcutaneous abscess on your lower mid back. You were seen and evaluated by general surgery whom recommended incision and drainage of the abscess plus IV antibiotic based on the identification of underlying MSSA bacteremia. You were found to have a hemoglobin A1c of 14.1% during your admission which indicated that your diabetes was not being well managed. Conversations and guidance were had had with our certified simulation educator and inpatient glycemic pharmacy as well. You were followed closely by our simulation educator while in the hospital. Your initial blood sugar reading was 347 in the emergency department. Your inpatient blood sugar values have roughly ranged from 150 to 220 while on two different kinds of insulin therapy. You last day of antibiotics was today, 11/22/2024, for treatment of your MSSA bacteremia. You have been deemed stable for discharge today with close follow-up regarding your diabetes and blood sugar monitoring plus additional education. DISCHARGE INSULIN REGIMEN and LIFESTYLE RECOMMENDATIONS: 1.) You were prescribed Tresiba U-100 FlexPen to take 15 units ONCE daily. This will be adjusted at your follow-up appointment at [facility]. You will be given 5 pens and the approximate cost is $43. This has been called in to the [facility]. 2.) You were given a meter to monitor your blood sugar. Please keep track of your blood sugar readings and write down your blood sugar values before you eat. It will be helpful to have these dates and times for your follow up appointment at [facility]. 3.) Lifestyle changes - Please ingest regular/balanced meals throughout your day (being mindful of portion sizes of carbs/starches and avoiding sugar-sweetened beverages). Aim for double portions of protein/vegetables with less carbs. RECOMMENDATIONS FOR FOLLOW-UP: 1. You will follow up at [facility] ([facility]) @ [address] [place] [address]. You can reach them at or via email at [email or web address] upon discharge to schedule your follow-up appointment. We are still waiting to hear back regarding your MA paperwork and whether or not it was approved. If approved, you can continue to establish follow-up care within [facility] clinics. They will assist you with management of your diabetes and provide additional education. 2. Regarding follow-up for your back incision, please call to make an appointment with the surgeon, Dr. Perry, within 1-2 weeks of your discharge date. Seek medical attention if you have: * temperature above 101F * chest pain or trouble breathing * abdominal pain, nausea, vomiting * diarrhea, dark stools or bloody stools * any unanswered questions or concerns Call [phone] if symptoms are severe. Please take good care of yourself! It has been a pleasure taking care of you. If you have any questions regarding your recent hospitalization please contact [facility] and request a [facility] Hospitalist @ [phone]. Total Time Total Time Spent Total Time Spent (In Minutes): 65 Supervising Physician Co-Signing Physician Notes Attending Addendum: Case reviewed with the advanced practitioner. I have personally performed a history and physical examination on the patient. I have reviewed the advanced practitioner's documentation on the date of service referenced in note, and I agree with, and take responsibility for the plan of care. please refer to her notes for full details patient seen and examined, records reviewed by myself as well ASSESSMENT AND PLAN diagnoses and plan of care as per advanced practitioner's notes I spent a total of 35 minutes coordinating, documenting, and providing care for this patient, excluding time spent in the performance of separately billed services or time spent by another provider/QHP. Abel Croft MD
[2024-11-22 07:23] VITALS: BP 123/90; PULSE 100; TEMP 97.9; O2SAT 94
--- NOTE | 2024-11-30 07:20 | Operative Report ---
PG Post Operative Report Pre & Post Diagnosis Operation Date: 11/07/24 07:00 Pre-Op Diagnosis: Back Abscess Post-Op Diagnosis: Back Abscess I identified the patient and participated in the time-out.: Yes Procedure Operation Date: 11/07/24 07:00 Actual Procedures p Incision and Drainage Back Abscess(Not Applicable) - Yaniv Perry DO Surgeon Yaniv Perry DO [employer] linda Hawkins Estimated Blood Loss 10 Findings Consistent with Post-Op Diagnosis Specimens abcess fluid for analysis Description of Procedure After informed consent was obtained the patient was taken the operating room and placed in supine position. Under mask airway was placed and the patient was rolled onto a lateral decubitus position. The mid back over the entire area of the abscess was sterilely prepped and draped in usual fashion. A 15 blade scalpel was used to make a linear incision directly over the visible palpable abscess. Cautery was used to carry this through the soft tissue. We readily encountered a large abscess pocket with a moderate amount of purulent fluid. A sample was obtained and sent for Gram stain culture and sensitivity. The wound was then thoroughly irrigated. Once all irrigant was cleared wound was packed with sterile packing covered with gauze and tape. The patient was rolled back into a supine position extubated and transferred recovery in stable condition. I attest to the content of the Intraoperative Record and any orders documented therein. Any exceptions are noted below.
== END 2024-11-22 11:28 | disposition home or self-care (01) | DRG 603 ==
LOC: ED 03:18 → EDINP 05:57 → SUATTDRO 05:57 → EDINP 10:24 → 3N 13:25